=== PATIENT | male | born 1965 | race Caucasian/White ===

== ENCOUNTER → 2016-06-19 | Outpatient (CLI) | payer BC ==
[2016-06-19 16:38] LABS: Anion Gap 10 mmol/L; Blood Urea Nitrogen 10 mg/dL (9-20); Calcium 8.5 mg/dL (8.4-10.2); Carbon Dioxide 29 mmol/L (22-30); Chloride 107 mmol/L (98-107); Glucose 81 mg/dL (74-99); Magnesium 1.9 mg/dL (1.6-2.3); Non-African American GFR(MDRD) >60 (>60 ml/min/1.73 sqM); Potassium 3.9 mmol/L (3.5-5.1); Sodium 146 mmol/L (137-145)
== END | disposition home or self-care (01) ==
LOC: LABWHC1 16:06
PROVIDERS: ATTEND Internal Medicine Clinical Cardiac Electrophysiology
DX: I10 Essential (primary) hypertension (principal); I48.91 Unspecified atrial fibrillation; Z79.899 Other long term (current) drug therapy
CPT/HCPCS: 36415; 80048; 83735

== ENCOUNTER → 2017-02-13 | Outpatient (CLI) | payer BC ==
[2017-02-13 10:27] LABS: Anion Gap 8 mmol/L; Blood Urea Nitrogen 22 mg/dL (9-20); Calcium 8.7 mg/dL (8.4-10.2); Carbon Dioxide 28 mmol/L (22-30); Chloride 108 mmol/L (98-107); Glucose 95 mg/dL (74-99); Magnesium 1.9 mg/dL (1.6-2.3); Non-African American GFR(MDRD) >60 (>60 ml/min/1.73 sqM); Potassium 4.6 mmol/L (3.5-5.1); Sodium 144 mmol/L (137-145)
== END | disposition home or self-care (01) ==
LOC: LABWHC1 08:49
PROVIDERS: ATTEND Internal Medicine Clinical Cardiac Electrophysiology
DX: I48.91 Unspecified atrial fibrillation (principal)
CPT/HCPCS: 36415; 80048; 83735

== ENCOUNTER → 2018-07-30 | Outpatient (CLI) | payer BC ==
[2018-07-30 11:42] LABS: HGB 13.9 gm/dL (13.0-17.5); MCH 29.1 pg (25.0-35.0); MCHC 32.3 g/dL (31.0-37.0); MCV 89.9 fL (80.0-100.0); Mean Platelet Volume 6.4; Platelet Count 260 k/uL (150-450); RBC 4.78 m/uL (4.30-5.90); RDW 13.5 % (11.5-15.5); WBC 6.5 k/uL (3.8-10.6)
[2018-07-30 11:57] LABS: Anion Gap 6 mmol/L; Blood Urea Nitrogen 16 mg/dL (9-20); Carbon Dioxide 29 mmol/L (22-30); Chloride 106 mmol/L (98-107); Glucose 88 mg/dL (74-99); Potassium 4.5 mmol/L (3.5-5.1); Sodium 141 mmol/L (137-145)
== END | disposition home or self-care (01) ==
LOC: LABPAT 11:10
PROVIDERS: ATTEND Internal Medicine Clinical Cardiac Electrophysiology
DX: Z01.812 Encounter for preprocedural laboratory examination (principal); I48.1 Persistent atrial fibrillation
CPT/HCPCS: 36415; 80051; 82565; 82947; 84520; 85027

== ENCOUNTER 2018-08-15 07:04 | Day surgery (SDC) | payer BC ==
[~2018-08-15 07:04] MED LIST: SODIUM CHLORIDE 0.9% 1,000 ML IV SCH
[2018-08-15 07:47] LABS: INR 1.5 (<1.2); Prothrombin Time 14.7 sec (9.0-12.0)
[2018-08-15] MEDS ORDERED: LIDOCAINE 1% INJ 10MG/ML (20 ML MDV) ONE ×2 (07:54→08:21)
[2018-08-15] MEDS ORDERED: HEPARIN SODIUM 1,000 UN/ML (10ML VL) ONE (07:54)
[2018-08-15] MEDS ORDERED: AMIODARONE 50 MG/ML 3 ML VIAL IV ONE (08:12)
[2018-08-15] MEDS ORDERED: DEXTROSE 5% IN WATER 100 ML BAG IV ONE (08:12)
[2018-08-15] MEDS ORDERED: MIDAZOLAM 2 MG/2 ML VIAL ONE (08:21)
[2018-08-15] MEDS ORDERED: GLYCOPYRROLATE 0.2 MG/ML 2 ML VIAL ONE (08:21)
[2018-08-15] MEDS ORDERED: NEOSTIGMINE 1 MG/ML 10 ML VIAL ONE (08:21)
[2018-08-15] MEDS ORDERED: AMIODARONE 200 MG TAB ONE (08:21)
[2018-08-15] MEDS ORDERED: PHENYLEPHRINE-0.9% NACL SYG 1 MG/10 ML SYRINGE ONE (08:21)
[2018-08-15] MEDS ORDERED: ROCURONIUM BROMIDE 10 MG/ML 10 ML VIAL IV ONE (08:21)
[2018-08-15] MEDS ORDERED: ONDANSETRON 4 MG/2 ML VIAL ONE (08:21)
[2018-08-15] MEDS ORDERED: fentaNYL (PF) 50 MCG/ML 2 ML AMP ONE (08:21)
[2018-08-15] MEDS ORDERED: SUCCINYLCHOLINE CHLORIDE 100 MG/5 ML SYR IV ONE (08:21)
[2018-08-15] MEDS ORDERED: PROTAMINE SULFATE 10 MG/ML 5 ML VIAL IV ONE (08:21)
[2018-08-15] MEDS ORDERED: HEPARIN SODIUM,PORCINE 10,000 UNIT/ML 1 ML VIAL ONE (08:21)
[2018-08-15] MEDS ORDERED: PROPOFOL 10 MG/ML 20 ML VIAL IV ONE (08:21)
[2018-08-15] MEDS ORDERED: HEPARIN SODIUM (1,000 UNIT/ML) 1,000 UNIT in SODIUM CHLORIDE 0.9% 1,000 ML IRRIGATION ONE ×2 (08:36→13:01)
[2018-08-15] MEDS ORDERED: HEPARIN SOD,PORK IN 0.45% NACL 25,000 UNIT in 0.45% NACL 1 250ML.BAG IV ONE (08:52)
[2018-08-15] MEDS ORDERED: LIDOCAINE 1% INJ 10MG/ML (20 ML MDV) SQ ONE (09:05)
[2018-08-15] MEDS ORDERED: SODIUM CHLORIDE 0.9% 1,000 ML IV ONE (10:35)
[2018-08-15] MEDS ORDERED: ACETAMINOPHEN IV (For NPO) 1,000 MG in EMPTY BAG 1 BAG IVPB ONE (14:57)
[2018-08-15] MEDS ORDERED: HYDROcodone/APAP 5-325MG 1 EACH TAB PO PRN (14:57)
[2018-08-15] MEDS ORDERED: ACETAMINOPHEN TAB 325 MG TAB PO PRN (14:57)
[2018-08-15] MEDS: AMIODARONE 200 MG TAB PO SCH ×2 (17:26→21:42)
[2018-08-15 17:36] VITALS: BMI 37.5
--- NOTE | 2018-08-15 20:05 | P.PCN ---
Preoperative Diagnosis: A. fib ablation performed with a wide [place] antral isolation of the pulmonary veins, linear ablation along the roof mitral annulus and along the anterior wall of the left atrium in areas of fractionation, ablation of fractionated electrograms in the posterior wall of the LAD as well as the septal wall upper septal wall on the right atrium next This is a very long procedure on account of the following #1 the right atrium was very dilated and transseptal catheterization was difficult on account of the size of the right atrium #2 left atrium was very dilated and contacted the guzman was difficult and we had to switch to deflectable sheath chief contact. Despite that this was a long procedure involving extensive ablation in the left atrium
[2018-08-15] MEDS: APIXABAN 5 MG TAB PO SCH (21:42)
--- NOTE | 2018-08-16 07:11 | CE ---
CARDIAC ELECTROPHYSIOLOGY REPORT Mr. Mandujano is a 53-year-old male patient with hypertrophic cardiomyopathy with symptomatic atrial fibrillation. He has had atrial fibrillation about 5 years back. He was brought in for an atrial fibrillation ablation and pulmonary vein isolation with linear ablation. Patient is brought to the EP lab in a fasting state. Written informed consent was obtained prior to the procedure. The right and left groins were prepped and draped as per protocol. Venous sheaths were placed in the right and left femoral veins and a 5- [place] arterial sheath was placed in the right femoral artery. Hemodynamic monitoring was performed. The patient remained stable throughout the procedure. Blood sampling was performed. ACT maintained above 300. Coronary sinus catheter was placed. The patient was in atrial fibrillation. At the start of the study, an intracardiac echo catheter was placed. A 3-D mapping of the left atrium was performed. The patient's INR was subtherapeutic today despite being therapeutic over the last several weeks. Therefore, the left and right atrial appendages were interrogated prior to starting and no clot was noted. The right and left transseptal catheterization was performed. RA pressure was 27/8 mmHg. LV pressure 23 x 10 x 17 mmHg. The Transseptal catheterization was difficult. He had a thick interatrial septum as well as a very rotated heart. The interatrial septum was low. The standard needle could not reach the fossa ovalis. Therefore Brock[place]rough needle #1 was used and we were able to cross the fossa ovalis and accessed the left atrium. Thereafter, a PentaRay catheter was placed and 3D electroanatomic Carto mapping was performed. The left-sided veins seemed isolated. However, the right-sided veins seem to have recovered, pulmonary vein potentials especially anteriorly. The atrium was very large and this was one of the reasons for the length of the procedure. This was a very large right and left atrium. First, antral isolation of the right-sided veins was performed. A very large encircling an antral isolation was performed incorporating a large portion of the atrium along with this. A catheter had to be used later to achieve contact posteriorly outside the right inferior pulmonary vein to achieve complete isolation. This was a very wide [place] antral isolation. The left-sided veins seemed isolated. However, a wide [place] antral isolation was performed around the left inferior pulmonary vein and as the anterior aspect of this vein has been ablated organization of the tachycardia was noted, but termination never occurred. Both the left superior And inferior veins were completely isolated. Next, the roof line was made a little anteriorly to avoid the esophagus. Esophageal deflection had to be performed when the posterior wall was being ablated. Once the roof line was completed, there was slight organization of the atrial fibrillation. Following that, AV node ablation of the mitral isthmus was performed and this resulted in significant amount of organization temporarily. Once again after completion of the line, the patient remained in atrial fibrillation but at a more intracardiac electrograms in the coronary sinus appeared more organized. Mapping around the anterior wall was performed and complex fractionated electrograms in the body of the left atrium anteriorly were ablated, especially around the fossa ovalis and the transseptal site anteroseptally posteriorly in the LA wall the midportion of the left atrium was assured fractionation and RF ablation was performed. Despite a very wide [place] antral isolation, linear ablation along the LA roof, complete mitral isthmus line and ablation of complex fractionated electrograms on the posterior wall and the anterior wall. We achieved organization of atrial fibrillation, greater augmentation of atrial fibrillation, but the patient still remained in A fib. The catheter was then removed from the left atrium and the right atrium was mapped. The right atrium was quite large, rapid cycle length electrograms were noted just below the SVC separately and the RF ablation was performed here. However, when the right atrium was mapped a lot of fractionation was noted with rapid cycle length in electrograms diffusely and therefore no further ablation was performed. The patient underwent electrical cardioversion. The sinus cycle length was 1200 milliseconds, the MA interval 193 milliseconds, QRS 110 milliseconds, QT 470 milliseconds. Sinus node recovery times were paced cycle length of 400 milliseconds, 1514 milliseconds from the high right atrium. AV node Wenckebach block was 320 milliseconds from pacing from the coronary sinus. The AH interval was 87 milliseconds, HV interval was 46 milliseconds. The patient tolerated the procedure well without any acute complications. Heparin was reversed at the end of the procedure. All catheters removed. The patient was extubated and the endoscope from the esophagus was removed prior to electrical cardioversion. RESULT: 1. Wide [place] antral isolation of the pulmonary veins. 2. Linear ablation along the left atrial roof. 3. Linear ablation of the mitral isthmus. 4. Focal ablation along areas of complex fractionation on the anterior wall and the posterior wall of the left atrium as well as on the septal aspect of the SVC and the upper septum in the right atrium. PLAN: Amiodarone for 1 month then stop. Beta blockers to continue. Anticoagulation with Eliquis. JARETT / IJN: [id number] /
[2018-08-16] MEDS: AMIODARONE 200 MG TAB PO SCH ×2 (08:18→17:21)
[2018-08-16] MEDS: APIXABAN 5 MG TAB PO SCH (08:18)
[2018-08-16 08:19] VITALS: RESP 18
[2018-08-16] MEDS ORDERED: SPIRONOLACTONE 25 MG TAB PO SCH (09:00)
[2018-08-16] MEDS ORDERED: amLODIPine 5 MG TAB PO SCH (09:00)
[2018-08-16] MEDS ORDERED: LISINOPRIL 20 MG TAB PO SCH (09:00)
[2018-08-16] MEDS ORDERED: METOPROLOL SUCCINATE (ER) 100 MG TAB.ER.24H PO SCH (09:00)
[2018-08-16] MEDS ORDERED: ASPIRIN 81 MG PO SCH (09:00)
[2018-08-16] MEDS ORDERED: ATORVASTATIN 80 MG TAB PO SCH (09:00)
[2018-08-16 12:08] VITALS: BP 105/63; PULSE 58; TEMP 98.7
--- NOTE | 2018-08-16 12:16 | P.DS ---
Providers Attending physician: Marco Belle Primary care physician: Stated None Hospital Course: Patient is doing well. He denies any chest discomfort dizziness lightheadedness or palpitations no cough phlegm. His throat feels fine He underwent a Maze procedure yesterday, catheter-based with PVI, linear ablation on the roof and the mitral annulus and ablation of fractionated electrograms in the anterior and posterior LA as well as high interatrial septum on the right side RA Although his atrial fibrillation organized a bit there was no termination despite a fairly extensive ablation and very large [place] antral isolation was especially in the right side I have switched him to ELIQUIS to maintain appropriate and adequate anticoagulation postprocedure and hopefully he can get ELIQUIS instead of warfarin Vitals are stable blood pressure 113/73 mmHg pulse rate in the 60s, temperature 98.7F Breath sounds are clear no rhonchi no crackles Heart sounds S1 and S2 are normal no murmurs or gallops no rub [place] soft nontender Groins of healed well sutures were removed no edema Impression Persistent atrial fibrillation Nonobstructive HCM Significant biatrial enlargement with elevated LA and RA pressures, RA greater than LA Plan Stop warfarin start ELIQUIS 5 g twice daily and follow with Dr. Kang in 1-2 weeks and follow-up with me again in about 2-3 months Resume metoprolol Short-term amiodarone 400 mg a day for one month and then stop No long-term amiodarone If he has recurrence of atrial fibrillation the future then either rate control atrial fibrillation with beta blockers or perhaps device therapy for A. fib with RVR or A. fib with bradycardia may be considered Patient Condition at Discharge: Stable Plan - Discharge Summary Discharge Rx Participant: Yes New Discharge Prescriptions: New Apixaban [Eliquis] 5 mg PO BID #60 tab Amiodarone [Cordarone] 400 mg PO DAILY #30 tablet Continue Warfarin [Coumadin] 10 mg PO MOTUWETHFRSA Lisinopril 40 mg PO DAILY Atorvastatin [Lipitor] 80 mg PO DAILY Aspirin 81 mg PO DAILY amLODIPine BESYLATE 5 mg PO DAILY Spironolactone 50 mg PO DAILY Metoprolol Succinate 200 mg PO DAILY Discontinued Warfarin Sodium 15 mg PO MCCARTY Discharge Medication List Aspirin 81 mg PO DAILY 04/11/14 [History] Atorvastatin [Lipitor] 80 mg PO DAILY 04/11/14 [History] Lisinopril 40 mg PO DAILY 04/11/14 [History] Warfarin [Coumadin] 10 mg PO MOTUWETHFRSA 04/11/14 [History] Metoprolol Succinate 200 mg PO DAILY 08/09/18 [History] Spironolactone 50 mg PO DAILY 08/09/18 [History] amLODIPine BESYLATE 5 mg PO DAILY 08/09/18 [History] Amiodarone [Cordarone] 400 mg PO DAILY #30 tablet 08/15/18 [Rx] Apixaban [Eliquis] 5 mg PO BID #60 tab 08/15/18 [Rx] Follow up Appointment(s)/Referral(s): Marco Belle MD [STAFF PHYSICIAN] - (4 month follow up ) Pola Kang MD [STAFF PHYSICIAN] - 1 Week (groin check) Activity/Diet/Wound Care/Special Instructions: Prior authorization started with insurance for Pradaxa, they will be sending a form Dr Belle's office for completion.
== END 2018-08-16 17:50 | disposition home or self-care (01) ==
LOC: CATHEP 07:04 → 1SOBS 14:53 → CATHEP 08-16 17:50
PROVIDERS: ATTEND Internal Medicine Clinical Cardiac Electrophysiology
DX: I48.1 Persistent atrial fibrillation (principal); I11.9 Hypertensive heart disease without heart failure; I34.1 Nonrheumatic mitral (valve) prolapse; I42.1 Obstructive hypertrophic cardiomyopathy; E78.5 Hyperlipidemia, unspecified; Z87.891 Personal history of nicotine dependence; Z79.01 Long term (current) use of anticoagulants; Z79.82 Long term (current) use of aspirin; Z79.899 Other long term (current) drug therapy
CPT/HCPCS: 85347; 92960; 93662; 93613; 93656; 93657; 85610; C1769 ×3; C1894 ×2; C1730; C1731; C1893 ×2; C1732; J2001; J1644 ×2

== ENCOUNTER → 2019-11-24 | Outpatient (CLI) | payer BC ==
[2019-11-24 15:41] LABS: INR 4.19 (0.90-1.11); Prothrombin Time 42.4 sec (9.9-11.9)
== END | disposition home or self-care (01) ==
LOC: LABWHC1 10:10
PROVIDERS: ATTEND Nurse Practitioner Adult Health
DX: I48.91 Unspecified atrial fibrillation (principal)
CPT/HCPCS: 36415; 85610

== ENCOUNTER 2020-02-10 21:36 | Inpatient (IN) | payer BC ==
[2020-02-10 22:20] LABS: Anisocytosis Slight; Basophils # (A) 0.1 k/uL (0-0.2); Basophils % (A) 1 %; Eosinophils # (A) 0.3 k/uL (0-0.7); Eosinophils % (A) 3 %; HCT 21.7 % (39.0-53.0); Hypochromasia Marked; Lymphocytes # (A) 1.5 k/uL (1.0-4.8); Lymphocytes % (A) 16 %; MCH 16.3 pg (25.0-35.0); MCHC 26.2 g/dL (31.0-37.0); MCV 62.1 fL (80.0-100.0); Mean Platelet Volume 6.3; Microcytosis Marked; Monocytes # (A) 0.9 k/uL (0-1.0); Monocytes % (A) 9 %; Neutrophils # (A) 6.5 k/uL (1.3-7.7); Neutrophils % (A) 68 %; Platelet Count 594 k/uL (150-450); Poikilocytosis Slight; RBC 3.49 m/uL (4.30-5.90); RDW 19.3 % (11.5-15.5); WBC 9.5 k/uL (3.8-10.6)
[2020-02-10 22:25] LABS: Albumin 3.7 g/dL (3.5-5.0); Calcium 8.6 mg/dL (8.4-10.2); INR 1.2 (<1.2); Partial Thromboplastin Time 23.4 sec (22.0-30.0); Potassium 5.1 mmol/L (3.5-5.1); Prothrombin Time 12.1 sec (9.0-12.0); Total Bilirubin 0.4 mg/dL (0.2-1.3); Total Protein 6.8 g/dL (6.3-8.2)
[2020-02-10 22:33] LABS: HGB 5.7 gm/dL (13.0-17.5)
[2020-02-10] MEDS ORDERED: PANTOPRAZOLE 40 MG/10 ML VIAL IVP ONE (23:23)
--- NOTE | 2020-02-10 23:25 | ED ---
General Adult HPI - General Chief complaint: Recheck/Abnormal Lab/Rx Stated complaint: Low Hemoglobin Time Seen by Provider: 02/10/20 21:49 Source: patient, RN notes reviewed, old records reviewed Mode of arrival: ambulatory Limitations: no limitations - History of Present Illness Initial comments: 55-year-old male patient proceeded for evaluation of low hemoglobin. Patient reports that for the last 3 weeks or so he feels like he has been weak. Feels tired after minimal exertion. Patient denies any chest pain. Patient reports that about 8 months his stools have been differently, dark and melanotic. Denies any abdominal pain. Patient recently had a cardiac workup that was reportedly negative. Patient outpatient labs done by primary care provider which displayed low hemoglobin. Patient does take warfarin for atrial fibrillation. Denies any other complaints. Systemic: Pt denies fatigue, fever/chills, rash. Pt denies weakness, night sweats, weight loss. Neuro: Pt denies headache, visual disturbances, syncope or pre-syncope. HEENT: Pt denies ocular discharge or irritation, otalgia, rhinorrhea, pharyngitis or notable lymphadenopathy. Cardiopulmonary: Pt denies chest pain, heart palpitations, dyspnea on exertion. Abdominal/GI: Pt denies abdominal pain, n/v/d. : Pt denies dysuria, burning w/ urination, frequency/urgency. Denies new onset urinary or bowel incontinence. MSK: Pt denies myalgia, loss of strength or function in extremities. Neuro: Pt denies new onset weakness, paresthesias. - Related Data Home Medications Medication Instructions Recorded Confirmed Aspirin 81 mg PO DAILY 04/11/14 02/10/20 Atorvastatin [Lipitor] 80 mg PO DAILY 04/11/14 02/10/20 Warfarin [Coumadin] 10 mg PO SUTUWETHSA 04/11/14 02/10/20 lisinopriL 40 mg PO DAILY 04/11/14 02/10/20 Metoprolol Succinate 200 mg PO DAILY 08/09/18 02/10/20 Spironolactone 50 mg PO DAILY 08/09/18 02/10/20 amLODIPine BESYLATE 5 mg PO DAILY 08/09/18 02/10/20 Warfarin [Coumadin] 5 mg PO MOFR 02/10/20 02/10/20 Allergies Allergy/AdvReac Type Severity Reaction Status Date / Time No Known Allergies Allergy Verified 02/10/20 22:28 Review of Systems ROS Statement: Those systems with pertinent positive or pertinent negative responses have been documented in the HPI. ROS Other: All systems not noted in ROS Statement are negative. Past Medical History Past Medical History: Atrial Fibrillation, Hypertension Additional Past Medical History / Comment(s): SEE DR CROSS H&P History of Any Multi-Drug Resistant Organisms: None Reported Past Surgical History: Cardiac Ablation, Tonsillectomy Additional Past Surgical History / Comment(s): CARDIOVERSION Past Anesthesia/Blood Transfusion Reactions: No Reported Reaction Past Psychological History: No Psychological Hx Reported Smoking Status: Former smoker Past Alcohol Use History: Occasional Past Drug Use History: None Reported General Exam - General Exam Comments Initial Comments: Constitutional: NAD, AOX3, Pt has pleasant affect. HEENT: NC/AT, trachea midline, neck supple, no lymphadenopathy. Posterior pharynx non erythematous, without exudates. External ears appear normal, without discharge. Mucous membranes moist. Eyes PERRLA, EOM intact. There is no scleral icterus. No pallor noted. Cardiopulmonary: RRR, no murmurs, rubs or gallops, no JVD noted. Lungs CTAB in anterior and posterior marie. No peripheral edema. Abdominal exam: Abdomen soft and non-distended. Abdomen non-tender to palpation in all 4 quadrants. Bowel sounds active in LLQ. No hepatosplenomegaly. No ecchymosis Neuro: CN II-XII grossly intact. No nuchal rigidity. MSK: Full active ROM in upper and lower extremities, 5/5 stregnth. Limitations: no limitations Course Vital Signs 02/10/20 02/10/20 02/10/20 21:42 22:34 23:27 Temperature 98.6 F Pulse Rate 71 67 66 Pulse Rate [ Pulse Oximetery ] Respiratory 16 16 18 Rate Blood Pressure 116/65 117/66 121/66 Blood Pressure [Right Arm] O2 Sat by Pulse 100 98 98 Oximetry 02/11/20 02/11/20 02/11/20 00:34 00:53 01:03 Temperature 98.8 F 98.5 F Pulse Rate 69 68 67 Pulse Rate [ 68 Pulse Oximetery ] Respiratory 18 18 18 Rate Blood Pressure 125/67 124/63 121/66 Blood Pressure 121/61 [Right Arm] O2 Sat by Pulse 100 99 99 Oximetry Medical Decision Making - Medical Decision Making 55-year-old male patient proceeded for evaluation. Patient has been feeling weak the last few weeks. Was found to have low hemoglobin by outpatient labs. Patient does report change in stools for 6-8 months. Labs here did confirm hemoglobin 5.7. Patient was transfused. She is on heparin his INR is 1.2. This will be held. Patient be admitted for further evaluation. Case discussed with Dr. Black. - Lab Data Result diagrams: 02/10/20 22:04 02/10/20 22:04 Lab Results 02/10/20 02/10/20 02/10/20 Range/Units 22:04 22:04 22:04 WBC 9.5 (3.8-10.6) k/uL RBC 3.49 L (4.30-5.90) m/uL Hgb 5.7 L* (13.0-17.5) gm/dL Hct 21.7 L (39.0-53.0) % MCV 62.1 L (80.0-100.0) fL MCH 16.3 L (25.0-35.0) pg MCHC 26.2 L (31.0-37.0) g/dL RDW 19.3 H (11.5-15.5) % Plt Count 594 H (150-450) k/uL Neutrophils % 68 % Lymphocytes % 16 % Monocytes % 9 % Eosinophils % 3 % Basophils % 1 % Neutrophils # 6.5 (1.3-7.7) k/uL Lymphocytes # 1.5 (1.0-4.8) k/uL Monocytes # 0.9 (0-1.0) k/uL Eosinophils # 0.3 (0-0.7) k/uL Basophils # 0.1 (0-0.2) k/uL Hypochromasia Marked Poikilocytosis Slight Anisocytosis Slight Microcytosis Marked PT 12.1 H (9.0-12.0) sec INR 1.2 H (<1.2) APTT 23.4 (22.0-30.0) sec Sodium (137-145) mmol/L Potassium (3.5-5.1) mmol/L Chloride (98-107) mmol/L Carbon Dioxide (22-30) mmol/L Anion Gap mmol/L BUN (9-20) mg/dL Creatinine (0.66-1.25) mg/dL Est GFR (CKD-EPI)AfAm (>60 ml/min/1.73 sqM) Est GFR (CKD-EPI)NonAf (>60 ml/min/1.73 sqM) Glucose (74-99) mg/dL Plasma Lactic Acid Saurav (0.7-2.0) mmol/L Calcium (8.4-10.2) mg/dL Total Bilirubin (0.2-1.3) mg/dL AST (17-59) U/L ALT (4-49) U/L Alkaline Phosphatase (38-126) U/L Total Protein (6.3-8.2) g/dL Albumin (3.5-5.0) g/dL Stool Occult Blood Positive (Negative) Blood Type Blood Type Confirm Blood Type Recheck Bld Type Recheck Status Antibody Screen Crossmatch Spec Expiration Date 02/10/20 02/10/20 02/10/20 Range/Units 22:04 22:04 23:10 WBC (3.8-10.6) k/uL RBC (4.30-5.90) m/uL Hgb (13.0-17.5) gm/dL Hct (39.0-53.0) % MCV (80.0-100.0) fL MCH (25.0-35.0) pg MCHC (31.0-37.0) g/dL RDW (11.5-15.5) % Plt Count (150-450) k/uL Neutrophils % % Lymphocytes % % Monocytes % % Eosinophils % % Basophils % % Neutrophils # (1.3-7.7) k/uL Lymphocytes # (1.0-4.8) k/uL Monocytes # (0-1.0) k/uL Eosinophils # (0-0.7) k/uL Basophils # (0-0.2) k/uL Hypochromasia Poikilocytosis Anisocytosis Microcytosis PT (9.0-12.0) sec INR (<1.2) APTT (22.0-30.0) sec Sodium 138 (137-145) mmol/L Potassium 5.1 (3.5-5.1) mmol/L Chloride 104 (98-107) mmol/L Carbon Dioxide 27 (22-30) mmol/L Anion Gap 7 mmol/L BUN 27 H (9-20) mg/dL Creatinine 1.31 H (0.66-1.25) mg/dL Est GFR (CKD-EPI)AfAm 72 (>60 ml/min/1.73 sqM) Est GFR (CKD-EPI)NonAf 62 (>60 ml/min/1.73 sqM) Glucose 133 H (74-99) mg/dL Plasma Lactic Acid Saurav 1.9 (0.7-2.0) mmol/L Calcium 8.6 (8.4-10.2) mg/dL Total Bilirubin 0.4 (0.2-1.3) mg/dL AST 51 (17-59) U/L ALT 28 (4-49) U/L Alkaline Phosphatase 120 (38-126) U/L Total Protein 6.8 (6.3-8.2) g/dL Albumin 3.7 (3.5-5.0) g/dL Stool Occult Blood (Negative) Blood Type A Positive Blood Type Confirm Blood Type Recheck No Previous Record Bld Type Recheck Status CABO Indicated Antibody Screen NEGATIVE Crossmatch See Detail Spec Expiration Date 02/13/2020 - 230902/10/20 Range/Units 23:12 WBC (3.8-10.6) k/uL RBC (4.30-5.90) m/uL Hgb (13.0-17.5) gm/dL Hct (39.0-53.0) % MCV (80.0-100.0) fL MCH (25.0-35.0) pg MCHC (31.0-37.0) g/dL RDW (11.5-15.5) % Plt Count (150-450) k/uL Neutrophils % % Lymphocytes % % Monocytes % % Eosinophils % % Basophils % % Neutrophils # (1.3-7.7) k/uL Lymphocytes # (1.0-4.8) k/uL Monocytes # (0-1.0) k/uL Eosinophils # (0-0.7) k/uL Basophils # (0-0.2) k/uL Hypochromasia Poikilocytosis Anisocytosis Microcytosis PT (9.0-12.0) sec INR (<1.2) APTT (22.0-30.0) sec Sodium (137-145) mmol/L Potassium (3.5-5.1) mmol/L Chloride (98-107) mmol/L Carbon Dioxide (22-30) mmol/L Anion Gap mmol/L BUN (9-20) mg/dL Creatinine (0.66-1.25) mg/dL Est GFR (CKD-EPI)AfAm (>60 ml/min/1.73 sqM) Est GFR (CKD-EPI)NonAf (>60 ml/min/1.73 sqM) Glucose (74-99) mg/dL Plasma Lactic Acid Saurav (0.7-2.0) mmol/L Calcium (8.4-10.2) mg/dL Total Bilirubin (0.2-1.3) mg/dL AST (17-59) U/L ALT (4-49) U/L Alkaline Phosphatase (38-126) U/L Total Protein (6.3-8.2) g/dL Albumin (3.5-5.0) g/dL Stool Occult Blood (Negative) Blood Type Blood Type Confirm A Positive Blood Type Recheck Bld Type Recheck Status Antibody Screen Crossmatch Spec Expiration Date Disposition Clinical Impression: GI bleed Disposition: ADMITTED IP TO THIS [facility] Condition: Serious Is patient prescribed a controlled substance at d/c from ED?: No
[2020-02-10] MEDS ORDERED: NALOXONE 0.4 MG/ML 1 ML VIAL IV PRN (23:50)
[2020-02-11] MEDS ORDERED: SODIUM CHLORIDE 0.9% 500 ML 500 ML IV ONE ×2 (00:30)
[2020-02-11] MEDS ORDERED: ONDANSETRON 4 MG/2 ML VIAL IVP PRN (00:52)
[2020-02-11 07:50] LABS: Anisocytosis Moderate; Basophils # (A) 0.1 k/uL (0-0.2); Basophils % (A) 1 %; Eosinophils # (A) 0.3 k/uL (0-0.7); Eosinophils % (A) 4 %; Hypochromasia Marked; Lymphocytes # (A) 1.6 k/uL (1.0-4.8); Lymphocytes % (A) 19 %; MCH 17.7 pg (25.0-35.0); MCHC 27.1 g/dL (31.0-37.0); MCV 65.4 fL (80.0-100.0); Mean Platelet Volume 6.3; Microcytosis Marked; Monocytes # (A) 0.8 k/uL (0-1.0); Monocytes % (A) 10 %; Neutrophils # (A) 5.5 k/uL (1.3-7.7); Neutrophils % (A) 65 %; Platelet Count 499 k/uL (150-450); Poikilocytosis Moderate; RBC 3.36 m/uL (4.30-5.90); WBC 8.4 k/uL (3.8-10.6)
[2020-02-11] MEDS: PANTOPRAZOLE 40 MG/10 ML VIAL IVP SCH ×2 (09:04→21:09)
[2020-02-11] MEDS: SODIUM CHLORIDE 0.9% 1,000 ML IV SCH (09:04)
--- NOTE | 2020-02-11 09:41 | P.HPIM ---
History of Present Illness 55-year-old [facility] Upon questioning patient does feel tired of After minimal exertion. Patient had was having on and off blood in the stools for about Lasix mesomorph. Patient denied any abdominal pain. Patient denied any nausea vomiting. Patient is found to have hemoglobin of 5.7 patient received a 1 unit of PRBC transfusion patient will be transfused 1 more unit patient to [place] last bloody bowel movement was about couple days ago which was some blood on the tissue paper. Patient does use Coumadin patient does have history of atrial fibrillation at one point of time patient was switched Eliquis but his insurance didn't approve because because of which patient is on Coumadin. Patient has a normal ejection fraction no history of heart failure does have history of atrial fibrillation. But his INR is only 1.2 Review of Systems REVIEW OF SYSTEMS: CONSTITUTIONAL: No fever, no malaise, no fatigue. HEENT: No recent visual problems or hearing problems. Denied any sore throat. CARDIOVASCULAR: No chest pain, orthopnea, PND, no palpitations, no syncope. PULMONARY: No shortness of breath, no cough, no hemoptysis. GASTROINTESTINAL: No diarrhea, no nausea, no vomiting, no abdominal pain. NEUROLOGICAL: No headaches, no weakness, no numbness. HEMATOLOGICAL: Denies any bleeding or petechiae. GENITOURINARY: Denies any burning micturition, frequency, or urgency. MUSCULOSKELETAL/RHEUMATOLOGICAL: Denies any joint pain, swelling, or any muscle pain. ENDOCRINE: Denies any polyuria or polydipsia. The rest of the 14-point review of systems is negative. Past Medical History Past Medical History: Atrial Fibrillation, Hypertension Additional Past Medical History / Comment(s): SEE DR CROSS H&P History of Any Multi-Drug Resistant Organisms: None Reported Past Surgical History: Cardiac Ablation, Tonsillectomy Additional Past Surgical History / Comment(s): CARDIOVERSION Past Anesthesia/Blood Transfusion Reactions: No Reported Reaction Past Psychological History: No Psychological Hx Reported Smoking Status: Former smoker Past Alcohol Use History: Occasional Past Drug Use History: None Reported Medications and Allergies Home Medications Medication Instructions Recorded Confirmed Type Aspirin 81 mg PO DAILY 04/11/14 02/10/20 History Atorvastatin [Lipitor] 80 mg PO DAILY 04/11/14 02/10/20 History Warfarin [Coumadin] 10 mg PO SUTUWETHSA 04/11/14 02/10/20 History lisinopriL 40 mg PO DAILY 04/11/14 02/10/20 History Metoprolol Succinate 200 mg PO DAILY 08/09/18 02/10/20 History Spironolactone 50 mg PO DAILY 08/09/18 02/10/20 History amLODIPine BESYLATE 5 mg PO DAILY 08/09/18 02/10/20 History Warfarin [Coumadin] 5 mg PO MOFR 02/10/20 02/10/20 History Allergies Allergy/AdvReac Type Severity Reaction Status Date / Time No Known Allergies Allergy Verified 02/10/20 22:28 Physical Exam Vitals: Vital Signs Temp Pulse Pulse Resp BP BP Pulse Ox 02/11/20 07:58 98.6 F 69 18 116/67 96 02/11/20 03:58 98.5 F 64 17 111/47 95 02/11/20 03:47 98.5 F 65 17 111/47 96 02/11/20 01:33 98.5 F 68 18 121/61 98 02/11/20 01:03 98.5 F 67 68 18 121/66 121/61 99 02/11/20 00:53 98.8 F 68 18 124/63 99 02/11/20 00:34 69 18 125/67 100 02/10/20 23:27 66 18 121/66 98 02/10/20 22:34 67 16 117/66 98 02/10/20 21:42 98.6 F 71 16 116/65 100 Intake and Output 02/10/20 02/11/20 02/11/20 22:59 06:59 14:59 Intake Total 510 Balance 510 Intake: Oral 200 Blood Product 310 Rc As-1 Unit 310 [id number] Other: Weight 104.417 kg 103.7 kg PHYSICAL EXAMINATION: GENERAL: The patient is alert and oriented x3, not in any acute distress. Well developed, well nourished. HEENT: Pupils are round and equally reacting to light. EOMI. No scleral icterus. does have conjunctival pallor. Normocephalic, atraumatic. No pharyngeal erythema. No thyromegaly. CARDIOVASCULAR: S1 and S2 present. No murmurs, rubs, or gallops. PULMONARY: Chest is clear to auscultation, no wheezing or crackles. ABDOMEN: Soft, nontender, nondistended, normoactive bowel sounds. No palpable organomegaly. MUSCULOSKELETAL: No joint swelling or deformity. EXTREMITIES: No cyanosis, clubbing, or pedal edema. NEUROLOGICAL: Gross neurological examination did not reveal any focal deficits. SKIN: No rashes. Results CBC & Chem 7: 02/11/20 07:13 02/10/20 22:04 Labs: Abnormal Lab Results - Last 24 Hours (Table) 02/10/20 02/10/20 02/10/20 Range/Units 22:04 22:04 22:04 RBC 3.49 L (4.30-5.90) m/uL Hgb 5.7 L* (13.0-17.5) gm/dL Hct 21.7 L (39.0-53.0) % MCV 62.1 L (80.0-100.0) fL MCH 16.3 L (25.0-35.0) pg MCHC 26.2 L (31.0-37.0) g/dL RDW 19.3 H (11.5-15.5) % Plt Count 594 H (150-450) k/uL PT 12.1 H (9.0-12.0) sec INR 1.2 H (<1.2) BUN 27 H (9-20) mg/dL Creatinine 1.31 H (0.66-1.25) mg/dL Glucose 133 H (74-99) mg/dL Crossmatch 02/10/20 02/11/20 Range/Units 23:10 07:13 RBC 3.36 L (4.30-5.90) m/uL Hgb 6.0 L* (13.0-17.5) gm/dL Hct 22.0 L (39.0-53.0) % MCV 65.4 L (80.0-100.0) fL MCH 17.7 L (25.0-35.0) pg MCHC 27.1 L (31.0-37.0) g/dL RDW 22.0 H (11.5-15.5) % Plt Count 499 H (150-450) k/uL PT (9.0-12.0) sec INR (<1.2) BUN (9-20) mg/dL Creatinine (0.66-1.25) mg/dL Glucose (74-99) mg/dL Crossmatch See Detail Thrombosis Risk Factor Assmnt - Choose All That Apply Each Factor Represents 1 point: Age 41-60 years Other Risk Factors: No Other congenital or acquired thrombophilia - If yes, enter type in comment: No Thrombosis Risk Factor Assessment Total Risk Factor Score: 1 Thrombosis Risk Factor Assessment Level: Low Risk Assessment and Plan Plan: -severe anemiawith acute and chronic lower GI bleed: Patient will be evaluated with gastro-oncology will transfuse him 1 more unit of PRBC. Coumadin will be held. -Acute renal failure on chronic kidney disease stage II patient will continue to IV fluids with.renal failure secondary to prerenal azotemia and intravascular volume depletion from anemia. -atrial fibrillation probably paroxysmal presently rate controlled -Hypertension because of episodes of this year bleed will monitor the blood pressure without anyantihypertensivemedications.
--- NOTE | 2020-02-11 13:49 | CONS ---
CONSULTATION DATE OF DICTATION: February 11, 2020. REQUESTING PHYSICIAN: Dr. Mathis. REASON FOR CONSULTATION: Severe symptomatic anemia. HISTORY OF PRESENT ILLNESS: The patient is a 55-year-old pleasant white male with history of atrial fibrillation, on Coumadin, admitted to the hospital because of shortness of breath and weakness for the last several weeks duration. He came to the emergency room and was noted to have a hemoglobin of 4.7 g/dL and currently receiving 2 units of PRBC transfusion. The patient has been complaining of intermittent rectal bleeding for the last 5-6 months. In fact, he was scheduled for a colonoscopy on an outpatient basis early part of this year, but this was canceled because of Covid. He denies any abdominal pain. Reports no nausea, vomiting. No prior history of peptic ulcer disease or recent NSAID use. He does complain of occasional heartburn. No dysphagia or odynophagia. PAST MEDICAL HISTORY: Significant for atrial fibrillation for which he underwent cardiac ablation. He has been on Coumadin for the last 15 years. History of hypertension, hyperlipidemia. MEDICATIONS: Medications at home include lisinopril, Amlodipine, Coumadin, spironolactone, metoprolol, Lipitor and aspirin. ALLERGIES: None. SOCIAL HISTORY: No smoking. No alcohol use. FAMILY HISTORY: Unremarkable. PAST SURGICAL HISTORY: Cardiac ablation and tonsillectomy. REVIEW OF SYSTEMS: CARDIOPULMONARY: No chest pain or shortness of breath. : No dysuria or hematuria. MUSCULOSKELETAL unremarkable. SKIN unremarkable. ENDOCRINE unremarkable. PSYCHIATRIC unremarkable. NEUROLOGY: Unremarkable. ENT/VISION: Unremarkable. CONSTITUTIONAL: No recent weight loss. No fever, chills, night sweats. PHYSICAL EXAMINATION: He appears comfortable. No apparent distress. Vital signs are stable. Blood pressure is 133/58. The pulse rate is 68 per minute and afebrile. HEENT examination unremarkable. Conjunctivae pink. Sclerae. Anicteric oral cavity no lesions. NECK: No JVD or lymph node enlargement. CHEST was clear to auscultation. HEART: Regular rate and rhythm. ABDOMEN: Soft. Bowel sounds are positive. No organomegaly. EXTREMITIES: No pedal edema. SKIN no rashes. NEUROLOGIC: Alert and oriented x3. No focal deficits. LABS: WBC 9.5, hemoglobin 5.7, platelets 595, MCV 62. PT 12.1, INR 1.2. BUN and creatinine 27 and 1.31 respectively. Rest of the labs are within normal limits. Stool occult blood was positive. IMPRESSION: 1. Severe symptomatic microcytic hypochromic anemia consistent with iron deficiency anemia. Clinically no evidence of active bleeding except patient has been having intermittent small amount of bright red blood per rectum for the last 5 months status post one unit of PRBC transfusion. Hemoglobin is 6.7. He is getting 2nd unit of PRBC transfusion currently. 2. Atrial fibrillation on Coumadin, currently on hold. 3. History of hypertension. RECOMMENDATIONS: 1. Agree with PRBC transfusion. 2. Proceed with EGD/colonoscopy tomorrow. I discussed with the patient benefits and complications of the procedure and he is agreeable to it. 3. Monitor CBC on a close basis. 4. We will follow with you closely. Thank you for this consultation. JARETT / CLEMENCIA: [id number] /
[2020-02-11] MEDS ORDERED: PEG 3350-NA SULF,BICARB,CL/KCL 4,000 ML BOTTLE PO ONE (17:00)
[2020-02-12] MEDS: SODIUM CHLORIDE 0.9% 1,000 ML IV SCH ×2 (06:31→17:00)
[2020-02-12 07:57] LABS: Anisocytosis Moderate; HCT 24.7 % (39.0-53.0); HGB 7.2 gm/dL (13.0-17.5); Hypochromasia Marked; MCH 18.8 pg (25.0-35.0); MCHC 29.1 g/dL (31.0-37.0); MCV 64.5 fL (80.0-100.0); Mean Platelet Volume 6.4; Microcytosis Marked; Platelet Count 553 k/uL (150-450); Poikilocytosis Marked; RBC 3.83 m/uL (4.30-5.90); RDW 23.4 % (11.5-15.5)
[2020-02-12 08:13] LABS: African American GFR (CKD) >90 (>60 ml/min/1.73 sqM); Anion Gap 6 mmol/L; Blood Urea Nitrogen 16 mg/dL (9-20); Calcium 8.6 mg/dL (8.4-10.2); Carbon Dioxide 28 mmol/L (22-30); Chloride 101 mmol/L (98-107); Glucose 89 mg/dL (74-99); Non-African American GFR(CKD) >90 (>60 ml/min/1.73 sqM); Potassium 4.7 mmol/L (3.5-5.1); Sodium 135 mmol/L (137-145)
[2020-02-12] MEDS: PANTOPRAZOLE 40 MG/10 ML VIAL IVP SCH ×2 (08:16→21:59)
[2020-02-12] MEDS: METOPROLOL SUCCINATE (ER) 100 MG TAB.ER.24H PO SCH (08:16)
[2020-02-12] MEDS: ATORVASTATIN 80 MG TAB PO SCH (08:16)
[2020-02-12] MEDS ORDERED: IV FLUID CONTINUATION 1,000 ML IV ONE (11:16)
[2020-02-12] MEDS ORDERED: PROPOFOL 10 MG/ML 20 ML VIAL IV ONE (11:17)
[2020-02-12] MEDS ORDERED: SODIUM CHLORIDE 0.9% 500 ML IV ONE (12:08)
--- NOTE | 2020-02-12 12:19 | P.PCN ---
Date of Procedure: 02/12/20 Description of Procedure: Brief history: Patient is a pleasant 55-year-old male with a medical history significant for atrial fibrillation on Coumadin therapy who had presented with shortness of breath and weakness found to be severely anemic with a hemoglobin of 4.7. Patient had reported intermittent rectal bleeding. No prior endoscopy reported, he had been scheduled for colonoscopy in the outpatient setting but this was rescheduled due to the outbreak of Coronavirus. Procedure performed: Esophagogastroduodenoscopy with biopsy Colonoscopy with biopsy and tattoo Estimated blood loss: Minimal. Preoperative diagnosis: Iron deficiency anemia, anemia of acute blood loss [place] [facility] [place]: After informed consent was obtained from the patient was brought into the endoscopy unit and IV sedation was administered by anesthesia under continuous monitoring. Initially upper endoscopy was done. The Olympus GF 190 video endoscope was inserted into the mouth and esophagus intubated without any difficulty and was gradually advanced into the stomach and duodenum and carefully examined. The bulb and second part of the duodenum appeared normal, with biopsies taken. The scope was then withdrawn into the stomach adequately insufflated with air and upon careful examination the antrum and body, cardia and fundus appeared normal, except for some mild scattered erythema in the antrum and body suggestive of mild gastritis biopsies taken. The scope was then withdrawn into the esophagus. The GE junction was located at 43 cm to the incisors and biopsied. It appeared regular with no erythema erosions or ulcerations. Rest of the esophagus appeared normal. Patient tolerated the procedure well. At this time the patient continued to remain sedation. Initial digital rectal examination was normal. Pediatric video colonoscope was then inserted into the rectum and gradually advanced to the cecum without any difficulty. Careful examination was performed as the scope was gradually being withdrawn. The prep was fair, prohibiting complete visualization of the colon. The cecum, ascending colon, transverse colon, descending colon, sigmoid colon and rectum which were visualized and appeared normal except for a rectal mass. The mass was circumferential and present from approximately 4 cm from the anal verge to loose 9 cm from the anal verge, was quite friable, however was able to be traversed with a pediatric scope. Multiple biopsies were taken of the mass, and 4 mL of ink were injected, 2 proximal to the mass and to distal to the mass. Retroflexion was performed in the rectum and no lesions were noted. Patient tolerated the procedure well. Impression: 1. Mild gastritis. Biopsies of the duodenum, antrum and body and GE junction. 2. Non-obstructing rectal mass, biopsied with tattoos placed distal and proximal to the mass. Otherwise normal appearing colonoscopy. Recommendations: Findings of this examination were discussed with the patient. Okay to resume liquid diet. Surgical consult placed with the case discussed with the surgical service. Await pathology from biopsies. Suspicion is are for malignant mass.
--- NOTE | 2020-02-12 13:19 | P.PN ---
Subjective was admitted for on and off rectal bleed. Patient had underwent colonoscopy today which showed a friable rectal asked, general surgery is being consulted anti-dilation will be held. Although in future if needed patient the is approved for [facility]. Patient will not need Coumadin down the line. Patient although didn't have any rectal bleed today or since admission. Hemoglobin remained stable and presently able 7. Constitutional: Denied any fatigue denied any fever. Cardio vascular: denied any chest pain, palpitations Gastrointestinal denied any nausea vomiting Pulmonary: Denied any shortness of breath cough Neurologic denied any new focal deficits All inpatient medications were reviewed and appropriate changes in these medications as dictated in the interval history and assessment and plan. Objective - Vital Signs Vital signs: Vital Signs Temp 97.1 F L 02/12/20 08:10 Pulse 73 02/12/20 08:10 Resp 16 02/12/20 08:10 BP 132/75 02/12/20 08:10 Pulse Ox 98 02/12/20 08:10 Intake & Output 02/11/20 02/12/20 02/12/20 18:59 06:59 18:59 Intake Total 700 1000 850 Output Total 200 Balance 500 1000 850 Weight 101.9 kg Intake: IV 850 Intake, IV Titration 150 Amount Sodium Chloride 0.9% 1, 150 000 ml @ 75 mls/hr IV . [id number] [facility] Rx#:[id number] Oral 240 1000 Blood Product 310 Rc Pheresis 2 As3 Unit 310 [id number] Output: Urine 200 Other: Voiding Method Toilet Toilet # Voids 3 5 - Exam PHYSICAL EXAMINATION: GENERAL: The patient is alert and oriented x3, not in any acute distress. Well developed, well nourished. HEENT: Pupils are round and equally reacting to light. EOMI. No scleral icterus. does have conjunctival pallor. Normocephalic, atraumatic. No pharyngeal erythema. No thyromegaly. CARDIOVASCULAR: S1 and S2 present. No murmurs, rubs, or gallops. PULMONARY: Chest is clear to auscultation, no wheezing or crackles. ABDOMEN: Soft, nontender, nondistended, normoactive bowel sounds. No palpable organomegaly. MUSCULOSKELETAL: No joint swelling or deformity. EXTREMITIES: No cyanosis, clubbing, or pedal edema. NEUROLOGICAL: Gross neurological examination did not reveal any focal deficits. SKIN: No rashes. - Labs CBC & Chem 7: 02/12/20 06:50 02/12/20 06:50 Labs: Abnormal Lab Results - Last 24 Hours (Table) 02/10/20 02/12/20 02/12/20 Range/Units 23:10 06:50 06:50 RBC 3.83 L (4.30-5.90) m/uL Hgb 7.2 L (13.0-17.5) gm/dL Hct 24.7 L (39.0-53.0) % MCV 64.5 L (80.0-100.0) fL MCH 18.8 L (25.0-35.0) pg MCHC 29.1 L (31.0-37.0) g/dL RDW 23.4 H (11.5-15.5) % Plt Count 553 H (150-450) k/uL Sodium 135 L (137-145) mmol/L Crossmatch See Detail Assessment and Plan Plan: -severe anemiawith acute and chronic lower GI bleed: hemoglobin is stable patient has a friable rectal mass anticoagulation will be held, general surgery consultation as mentioned above -Acute renal failure on chronic kidney disease stage II improved with the IV fluids and blood transfusion IV fluids were discontinued -atrial fibrillation probably paroxysmal presently rate controlled -Hypertension because of episodes of this year bleed will monitor the blood pressure without anyantihypertensivemedications.
[2020-02-13 07:43] LABS: Anisocytosis Marked; HCT 25.9 % (39.0-53.0); HGB 7.5 gm/dL (13.0-17.5); Hypochromasia Marked; MCH 18.6 pg (25.0-35.0); MCHC 29.1 g/dL (31.0-37.0); MCV 63.7 fL (80.0-100.0); Mean Platelet Volume 6.4; Microcytosis Marked; Platelet Count 558 k/uL (150-450); Poikilocytosis Moderate; RBC 4.06 m/uL (4.30-5.90); RDW 24.2 % (11.5-15.5); WBC 10.1 k/uL (3.8-10.6)
[2020-02-13] MEDS: PANTOPRAZOLE 40 MG/10 ML VIAL IVP SCH ×2 (09:22→21:13)
[2020-02-13] MEDS: METOPROLOL SUCCINATE (ER) 100 MG TAB.ER.24H PO SCH (09:22)
[2020-02-13] MEDS: ATORVASTATIN 80 MG TAB PO SCH (09:22)
[2020-02-13] MEDS ORDERED: IOPAMIDOL CONTRAST (ORAL USE) VIAL PO PRN (11:00)
--- NOTE | 2020-02-13 11:19 | P.PN ---
Subjective was admitted for on and off rectal bleed. Patient had underwent colonoscopy today which showed a friable rectal asked, general surgery is being consulted anti-dilation will be held. Although in future if needed patient the is approved for [facility]. Patient will not need Coumadin down the line. Patient although didn't have any rectal bleed today or since admission. Hemoglobin remained stable and presently able 7. 02/13/2020 Patient is off anticoagulation. The surgery will evaluate the patient andovernightevents. No more clinical GI bleed. Constitutional: Denied any fatigue denied any fever. Cardio vascular: denied any chest pain, palpitations Gastrointestinal denied any nausea vomiting Pulmonary: Denied any shortness of breath cough Neurologic denied any new focal deficits All inpatient medications were reviewed and appropriate changes in these medications as dictated in the interval history and assessment and plan. Objective - Vital Signs Vital signs: Vital Signs Temp 100.0 F H 02/13/20 08:00 Pulse 66 02/13/20 08:00 Resp 17 02/13/20 08:00 BP 144/74 02/13/20 08:00 Pulse Ox 97 02/13/20 08:00 Intake & Output 02/12/20 02/13/20 02/13/20 18:59 06:59 18:59 Intake Total 2049 Output Total 200 Balance 0 -200 Weight 100.5 kg Intake: IV 850 Intake, IV Titration 600 Amount Sodium Chloride 0.9% 1, 600 000 ml @ 75 mls/hr IV . [id number] [facility] Rx#:[id number] Oral 600 Output: Urine 200 Other: Voiding Method Toilet Toilet # Voids 2 2 - Exam PHYSICAL EXAMINATION: GENERAL: The patient is alert and oriented x3, not in any acute distress. Well developed, well nourished. HEENT: Pupils are round and equally reacting to light. EOMI. No scleral icterus. does have conjunctival pallor. Normocephalic, atraumatic. No pharyngeal erythema. No thyromegaly. CARDIOVASCULAR: S1 and S2 present. No murmurs, rubs, or gallops. PULMONARY: Chest is clear to auscultation, no wheezing or crackles. ABDOMEN: Soft, nontender, nondistended, normoactive bowel sounds. No palpable organomegaly. MUSCULOSKELETAL: No joint swelling or deformity. EXTREMITIES: No cyanosis, clubbing, or pedal edema. NEUROLOGICAL: Gross neurological examination did not reveal any focal deficits. SKIN: No rashes. - Labs CBC & Chem 7: 02/13/20 07:19 02/12/20 06:50 Labs: Abnormal Lab Results - Last 24 Hours (Table) 02/13/20 Range/Units 07:19 RBC 4.06 L (4.30-5.90) m/uL Hgb 7.5 L (13.0-17.5) gm/dL Hct 25.9 L (39.0-53.0) % MCV 63.7 L (80.0-100.0) fL MCH 18.6 L (25.0-35.0) pg MCHC 29.1 L (31.0-37.0) g/dL RDW 24.2 H (11.5-15.5) % Plt Count 558 H (150-450) k/uL Assessment and Plan Plan: -severe anemiawith acute and chronic lower GI bleed: hemoglobin is stable patient has a friable rectal mass anticoagulation will be held, general surgery consultation as mentioned above -Acute renal failure on chronic kidney disease stage II improved with the IV fluids and blood transfusion -atrial fibrillation probably paroxysmal presently rate controlled -Hypertension because of episodes of this year bleed will monitor the blood pressure without anyantihypertensivemedications.
--- NOTE | 2020-02-13 12:20 | P.GSCN ---
History of Present Illness Consult date: 02/13/20 Reason for Consult: Rectal mass History of present illness: 55-year-old male comes to the hospital complaining of fatigue and found to be anemic. Patient describes constipation, rectal fullness, bloody stools for the last 6-8 months. No prior colonoscopy. Yesterday's colonoscopy revealed a mass in the rectum extending from 9-4 cm. Biopsies were taken and are pending at this time. Mass was circumferential. Mass was able to be traversed using the pediatric colonoscope. Patient denies abdominal bloating or vomiting. No satiety. Patient's hemoglobin 7.5 after transfusion of 2 units of blood. No family history of colon cancer. Past Medical History Past Medical History: Atrial Fibrillation, Hypertension Additional Past Medical History / Comment(s): SEE DR CROSS H&P History of Any Multi-Drug Resistant Organisms: None Reported Past Surgical History: Cardiac Ablation, Tonsillectomy Additional Past Surgical History / Comment(s): CARDIOVERSION Past Anesthesia/Blood Transfusion Reactions: No Reported Reaction Past Psychological History: No Psychological Hx Reported Smoking Status: Former smoker Past Alcohol Use History: Occasional Past Drug Use History: None Reported Medications and Allergies Home Medications Medication Instructions Recorded Confirmed Type Aspirin 81 mg PO DAILY 04/11/14 02/10/20 History Atorvastatin [Lipitor] 80 mg PO DAILY 04/11/14 02/10/20 History Metoprolol Succinate 200 mg PO DAILY 08/09/18 02/10/20 History lisinopriL 20 mg PO DAILY #0 02/12/20 02/10/20 Rx Allergies Allergy/AdvReac Type Severity Reaction Status Date / Time No Known Allergies Allergy Verified 02/10/20 22:28 Surgical - Exam Vital Signs Temp Pulse Resp BP Pulse Ox 98.6 F 71 16 116/65 100 02/10/20 21:42 02/10/20 21:42 02/10/20 21:42 02/10/20 21:42 02/10/20 21:42 Physical exam: General: Well-developed, well-nourished HEENT: Normocephalic, sclerae nonicteric Abdomen: Nontender, nondistended Extremities: No edema Neuro: Alert and oriented Rectal: Palpable mass just proximal to anal sphincter estimate mass extends to within 1-2 cm above dentate line. Results - Labs 02/13/20 07:19 02/12/20 06:50 Abnormal Lab Results - Last 24 Hours (Table) 02/13/20 Range/Units 07:19 RBC 4.06 L (4.30-5.90) m/uL Hgb 7.5 L (13.0-17.5) gm/dL Hct 25.9 L (39.0-53.0) % MCV 63.7 L (80.0-100.0) fL MCH 18.6 L (25.0-35.0) pg MCHC 29.1 L (31.0-37.0) g/dL RDW 24.2 H (11.5-15.5) % Plt Count 558 H (150-450) k/uL Assessment and Plan (1) Rectal mass Narrative/Plan: 55-year-old male with suspected rectal adenocarcinoma. Await biopsy results. Await CT chest abdomen and pelvis ordered earlier today. May discharge following that if patient feels well enough. Outpatient follow-up with oncology. Patient will require further imaging which may include MRI pelvis versus endoscopic ultrasound. Following that patient will likely benefit from neoadjuvant chemoradiation. Discussed possible outpatient referral to colorectal surgery given the low nature of this mass to see if they believe a sphincter sparing resection is possible. Current Visit: Yes Status: Acute Code(s): K62.89 - OTHER SPECIFIED DISEASES OF ANUS AND RECTUM SNOMED Code(s): 789372035
--- NOTE | 2020-02-13 12:53 | P.PN ---
Subjective Progress Note Date: 02/13/20 Principal diagnosis: Severe symptomatic anemia The patient is a pleasant 55-year-old male with a past medical history significant for atrial fibrillation on Coumadin who presented to the hospital with shortness of breath and weakness found to be severely anemic with an initial hemoglobin of 4.7. The patient had reported that he has been having intermittent rectal bleeding and pressure with bowel movements for the past 5-6 months. Yesterday he underwent EGD and colonoscopy area and the EGD showed mild gastritis and the colonoscopy showed a non-obstructing rectal mass, it was biopsied with tattoos placed distal and proximal to the mass. Surgery was consulted. Objective - Vital Signs Vital signs: Vital Signs Temp 100.0 F H 02/13/20 08:00 Pulse 66 02/13/20 08:00 Resp 17 02/13/20 08:00 BP 144/74 02/13/20 08:00 Pulse Ox 97 02/13/20 08:00 Intake & Output 02/12/20 02/13/20 02/13/20 18:59 06:59 18:59 Intake Total 2050 90 Output Total 200 Balance 2050 -200 90 Weight 100.5 kg Intake: IV 850 Intake, IV Titration 600 Amount Sodium Chloride 0.9% 1, 600 000 ml @ 75 mls/hr IV . [id number] [facility] Rx#:[id number] Oral 600 90 Output: Urine 200 Other: Voiding Method Toilet Toilet # Voids 2 2 - Exam General appearance: The patient is alert, oriented, in no acute distress. HET: Head is normocephalic and atraumatic. Conjunctiva pink. Sclerae anicteric. Neck: Supple without lymphadenopathy. Trachea midline. Abdomen: Soft, nontender, nondistended with bowel sounds. Extremities: Normal skin color and turgor. Neurological: No focal deficits. Alert and oriented 3. - Labs CBC & Chem 7: 02/13/20 07:19 02/12/20 06:50 Labs: Abnormal Lab Results - Last 24 Hours (Table) 02/13/20 Range/Units 07:19 RBC 4.06 L (4.30-5.90) m/uL Hgb 7.5 L (13.0-17.5) gm/dL Hct 25.9 L (39.0-53.0) % MCV 63.7 L (80.0-100.0) fL MCH 18.6 L (25.0-35.0) pg MCHC 29.1 L (31.0-37.0) g/dL RDW 24.2 H (11.5-15.5) % Plt Count 558 H (150-450) k/uL Assessment and Plan Assessment: 1. Severe symptomatic microcytic hypochromic anemia consistent with iron deficiency anemia. Status post 2 units of PRBC 2. Rectal mass 3. Atrial fibrillation on Coumadin, currently on hold 3. History of hypertension Plan: 1. Agree with PRBC transfusion 2. EGD/colonoscopy completed. RAFAEL findings include mild gastritis, colonoscopy findings included a nonobstructing a rectal mass which was biopsied with tattoos placed distal and proximal to the mass. 3. Monitor CBC daily 4. Consult surgery 5. CT of chest abdomen and pelvis with contrast ordered 6. Recommend outpatient follow-up with oncology 1-2 weeks The impression and plan of care has been dictated as directed. I performed a history and examination of this patient, discussed the same with the dictator. I agree with the dictator's note ,documented as a scribe. Any additional findings or plans will be noted.
[2020-02-13] MEDS: ACETAMINOPHEN TAB 325 MG TAB PO PRN ×2 (13:29→23:28)
--- NOTE | 2020-02-13 15:22 | XR ---
EXAMINATION TYPE: XR chest 2V DATE OF EXAM: 02/13/2020 COMPARISON: CT chest abdomen pelvis 02/13/2020 INDICATION: Fever TECHNIQUE: Frontal and lateral views of the chest are obtained. FINDINGS: The heart size is normal. The pulmonary vasculature is normal. There is a 1 cm oval density in the anterior right middle lobe. Lungs otherwise appear clear.. IMPRESSION: 1. Right middle lobe nodule. Please see CT chest.
--- NOTE | 2020-02-13 15:31 | CT ---
EXAMINATION TYPE: CT ChestAbdPelvis w con DATE OF EXAM: 02/13/2020 COMPARISON: None HISTORY: Rectal mass. CT DLP: 1640.7 mGycm Automated exposure control for dose reduction was used. CONTRAST: CT scan of the chest, abdomen and pelvis is performed with Oral Contrast and with IV Contrast, patien t injected with 100 mL of Isovue 300. FINDINGS: LUNGS: There are multiple less than 5 mm pulmonary nodules seen within the lungs bilaterally. Within the right middle lobe there is a 9 mm pulmonary nodule. Additionally within the superior segment of t he left lower lobe there is an 8 mm pulmonary nodule. Within the anterior segment of the right upper lobe there is a 10 mm pulmonary nodule which may contain a calcification which can be seen with a gra nuloma and mucinous metastasis. Additional right upper lobe pulmonary nodule on axial image 34 measur es 11 mm. On the left posterior lung base there is a 9 mm pulmonary nodule. There is a tiny right pleural effusion. No consolidation. No pneumothorax. MEDIASTINUM: There is shotty lymphadenopathy in the prevascular space. No pathologic hilar or mediast inal adenopathy. Shotty adenopathy in the axilla. Incidental note made of gynecomastia. Aorta of norm al caliber. Heart size mildly prominent. Mild atherosclerotic changes. OTHER: Bilateral mild gynecomastia LIVER/GB: There are numerous areas of abnormal attenuation throughout all segments of the liver osiris tible with widespread metastases. The largest lesion measures 10 cm. PANCREAS: No significant abnormality is seen. SPLEEN: No significant abnormality is seen. ADRENALS: 8 mm hypodense lesion involving the right adrenal gland likely related to incidental adeno ma. Mild left adrenal gland thickening is nonspecific.. KIDNEYS: Hypodensity within the left kidney is too small to characterize and indeterminate could be c orrelated with ultrasound. BOWEL: Thickening of the rectosigmoid wall is seen. The enlarged lymph nodes are seen adjacent to th is region.. LYMPH NODES: There is extensive periportal lymphadenopathy with matted adenopathy measuring a short a xis of 3 cm. Multiple lymph nodes in the pelvis are seen adjacent to a thickened bowel wall rectosigm oid colon. These multiple lymph nodes measure approximately 1.4 cm in short axis compatible with path ologic adenopathy. OSSEOUS STRUCTURES: Hypertrophic and degenerative change of the spine. Sclerotic density in the midth oracic and lower lumbar spine are too small to characterize. Additional mesenteric and peripancreatic lymph nodes are seen. Retroperitoneal adenopathy and is noted greater on the left measuring a short axis of 1.7 cm. OTHER: Small amount of ascites is seen. Aorta of normal caliber IMPRESSION: 1. Marked rectosigmoid wall thickening compatible with malignancy. There is pelvic, retroperitoneal a nd intra-abdominal extensive lymphadenopathy compatible with metastases. 2. Numerous large intrahepatic lesions with the largest measuring approximately 10 cm compatible with metastases. All lobes and segments appear to be involved. 3. Numerous bilateral pulmonary nodules compatible with metastases.
[2020-02-13 23:11] LABS: Appearance,Urine Clear (Clear); Bilirubin,Urine Negative (Negative); Blood,Urine Negative (Negative); Color,Urine Yellow; Glucose,Urine (UA) Negative (Negative); Ketones,Urine Negative (Negative); Leukocyte Esterase,Urine Negative (Negative); Nitrite,Urine Negative (Negative); Protein,Urine Trace (Negative); Specific Gravity,Urine 1.029 (1.001-1.035)
[2020-02-14 07:32] LABS: Anisocytosis Marked; HCT 25.8 % (39.0-53.0); HGB 7.2 gm/dL (13.0-17.5); Hypochromasia Marked; MCH 18.3 pg (25.0-35.0); MCV 65.3 fL (80.0-100.0); Mean Platelet Volume 6.4; Microcytosis Marked; Platelet Count 470 k/uL (150-450); Poikilocytosis Moderate; RBC 3.95 m/uL (4.30-5.90); WBC 14.4 k/uL (3.8-10.6)
[2020-02-14 07:49] LABS: African American GFR (CKD) >90 (>60 ml/min/1.73 sqM); Anion Gap 3 mmol/L; Blood Urea Nitrogen 14 mg/dL (9-20); Calcium 8.4 mg/dL (8.4-10.2); Carbon Dioxide 32 mmol/L (22-30); Chloride 99 mmol/L (98-107); Glucose 107 mg/dL (74-99); Non-African American GFR(CKD) 82 (>60 ml/min/1.73 sqM); Potassium 4.5 mmol/L (3.5-5.1); Sodium 134 mmol/L (137-145)
[2020-02-14 07:55] LABS: RDW 25.3 % (11.5-15.5)
[2020-02-14] MEDS: ATORVASTATIN 80 MG TAB PO SCH (09:30)
[2020-02-14] MEDS: PANTOPRAZOLE 40 MG/10 ML VIAL IVP SCH ×2 (09:30→20:23)
[2020-02-14] MEDS: METOPROLOL SUCCINATE (ER) 100 MG TAB.ER.24H PO SCH (09:30)
[2020-02-14] MEDS: polyethylene glycoL 3350 17 GM POWD.PACK PO SCH (09:31)
--- NOTE | 2020-02-14 12:36 | P.PN ---
Subjective was admitted for on and off rectal bleed. Patient had underwent colonoscopy today which showed a friable rectal asked, general surgery is being consulted anti-dilation will be held. Although in future if needed patient the is approved for [facility]. Patient will not need Coumadin down the line. Patient although didn't have any rectal bleed today or since admission. Hemoglobin remained stable and presently able 7. 02/13/2020 Patient is off anticoagulation. The surgery will evaluate the patient andovernightevents. No more clinical GI bleed. Constitutional: Denied any fatigue denied any fever. Cardio vascular: denied any chest pain, palpitations Gastrointestinal denied any nausea vomiting Pulmonary: Denied any shortness of breath cough Neurologic denied any new focal deficits Subjective 02/14/2020, this is the first in taking care of the patient Patient is awake and alert, sitting in chair fully oriented and not in distress. He is aware of his diagnosis of rectal mass which is highly suspicious for cancer as he told me by himself. He confirms that he was taking Coumadin at home for A. fib which is on hold for now. He denies chest pain or dyspnea. No nausea vomiting. No abdominal pain however he has some loose bowel movement with some chunks in it. He had low- grade fever 101.2. Most likely source is proctitis related to his rectal mass, we will start the patient on Zosyn Objective - Vital Signs Vital signs: Vital Signs Temp 99.6 F 02/14/20 09:20 Pulse 72 02/14/20 11:30 Resp 16 02/14/20 11:30 BP 109/63 02/14/20 11:30 Pulse Ox 99 02/14/20 11:30 Intake & Output 02/13/20 02/14/20 02/14/20 18:59 06:59 18:59 Intake Total 330 200 Balance 330 200 Weight 101.3 kg Intake: Oral 330 200 Other: Voiding Method Toilet Toilet # Voids 1 1 - Exam GENERAL: The patient is alert and oriented x3, not in any acute distress. Well developed, well nourished. HEENT: Pupils are round and equally reacting to light. EOMI. No scleral icterus. No conjunctival pallor. Normocephalic, atraumatic. No pharyngeal erythema. No thyromegaly. CARDIOVASCULAR: S1 and S2 present. No murmurs, rubs, or gallops. PULMONARY: Chest is clear to auscultation, no wheezing or crackles. ABDOMEN: Soft, nontender, nondistended, normoactive bowel sounds. No palpable organomegaly. MUSCULOSKELETAL: No joint swelling or deformity. EXTREMITIES: No cyanosis, clubbing, or pedal edema. NEUROLOGICAL: Gross neurological examination did not reveal any focal deficits. SKIN: No rashes. no petechiae. - Labs CBC & Chem 7: 02/14/20 07:07 02/14/20 07:07 Labs: Abnormal Lab Results - Last 24 Hours (Table) 02/13/20 02/13/20 02/14/20 Range/Units 07:19 22:56 07:07 WBC 14.4 H (3.8-10.6) k/uL RBC 3.95 L (4.30-5.90) m/uL Hgb 7.2 L (13.0-17.5) gm/dL Hct 25.8 L (39.0-53.0) % MCV 65.3 L (80.0-100.0) fL MCH 18.3 L (25.0-35.0) pg MCHC 28.0 L (31.0-37.0) g/dL RDW 25.3 H (11.5-15.5) % Plt Count 470 H (150-450) k/uL Sodium (137-145) mmol/L Carbon Dioxide (22-30) mmol/L Glucose (74-99) mg/dL Carcinoembryonic Ag 1078.1 H (0.0-4.9) ng/mL Urine Protein Trace H (Negative) 02/14/20 Range/Units 07:07 WBC (3.8-10.6) k/uL RBC (4.30-5.90) m/uL Hgb (13.0-17.5) gm/dL Hct (39.0-53.0) % MCV (80.0-100.0) fL MCH (25.0-35.0) pg MCHC (31.0-37.0) g/dL RDW (11.5-15.5) % Plt Count (150-450) k/uL Sodium 134 L (137-145) mmol/L Carbon Dioxide 32 H (22-30) mmol/L Glucose 107 H (74-99) mg/dL Carcinoembryonic Ag (0.0-4.9) ng/mL Urine Protein (Negative) Assessment and Plan Assessment: -Possible proctitis related to his rectal mass, associated with sepsis with fever and leukocytosis. start Zosyn. Send stool for C. diff and stool culture sensitivity. -severe anemiawith acute and chronic lower GI bleed: hemoglobin is stable patient has a friable rectal mass anticoagulation will be held, general surgery consultation as mentioned above -Acute renal failure on chronic kidney disease stage II improved with the IV fluids and blood transfusion -atrial fibrillation probably paroxysmal presently rate controlled -Hypertension because of episodes of this year bleed will monitor the blood pressure without anyantihypertensivemedications.
[2020-02-14] MEDS: PIPERACILLIN-TAZOBACTAM 3.375 GM in SODIUM CHLORIDE 0.9% 100 ML IVPB SCH ×2 (14:02→20:23)
[2020-02-14] MEDS: ACETAMINOPHEN TAB 325 MG TAB PO PRN ×2 (14:02→20:23)
--- NOTE | 2020-02-14 15:32 | P.PN ---
<NellalexandriaChristine sher - Last Filed: 02/14/20 15:21> Subjective Progress Note Date: 02/14/20 CHIEF COMPLAINT: Rectal mass HISTORY OF PRESENT ILLNESS: Patient is being followed for his rectal mass. He had been having blood in his stools and feeling weak. Also, patient has noted a 47 pound unintentional weight loss. He denies any pain. He has had no further blood per rectum. Patient had computed tomography scan of the chest abdomen and pelvis results reported marked rectosigmoid sigmoid colon wall thickening compatible with malignancy. There is pelvic, retroperitoneal and intra- abdominal extensive lymphadenopathy compatible with metastasis. Numerous large intrahepatic lesions with the largest measuring 10 cm compatible with metastasis. All lobes and segments appear to be involved. Numerous bilateral pulmonary nodules compatible with metastasis. Oncology consult has been placed. He is tolerating regular diet. Patient did have temp of 101.2 last night and now down to 99.8. WBC 14.4 hemoglobin 7.2 platelets 470 CEA elevated PHYSICAL EXAM: VITAL SIGNS: Reviewed. GENERAL: Well-developed in no acute distress. HEENT: No sclera icterus. Extraocular movements grossly intact. Moist buccal mucosa. Head is atraumatic, normocephalic. ABDOMEN: Soft. Nondistended. Nontender. NEUROLOGIC: Alert and oriented. Cranial nerves II through XII grossly intact. ASSESSMENT: 1. Rectal mass with suspected rectal adenocarcinoma and evidence of metastatic disease noted on CAT scan PLAN: -Consult oncology -Continue regular diet -Follow up on biopsy results from colonoscopy Physician Search Lead note has been reviewed by physician. Signing provider agrees with the documented findings, assessment, and plan of care. Objective - Vital Signs Vital signs: Vital Signs Temp 99.8 F H 02/14/20 14:04 Pulse 72 02/14/20 11:30 Resp 16 02/14/20 11:30 BP 109/63 02/14/20 11:30 Pulse Ox 99 02/14/20 11:30 Intake & Output 02/13/20 02/14/20 02/14/20 18:59 06:59 18:59 Intake Total 330 800 Balance 330 800 Weight 101.3 kg Intake: Intake, IV Titration 100 Amount Piperacillin-Tazobactam 3 100 .375 gm In Sodium Chloride 0.9% 100 ml @ 25 mls/hr IVPB Q8H [facility] Rx#: [id number] Oral 330 700 Other: Voiding Method Toilet Toilet # Voids 1 1 2 - Labs CBC & Chem 7: 02/14/20 07:07 02/14/20 07:07 Labs: Abnormal Lab Results - Last 24 Hours (Table) 02/13/20 02/13/20 02/14/20 Range/Units 07:19 22:56 07:07 WBC 14.4 H (3.8-10.6) k/uL RBC 3.95 L (4.30-5.90) m/uL Hgb 7.2 L (13.0-17.5) gm/dL Hct 25.8 L (39.0-53.0) % MCV 65.3 L (80.0-100.0) fL MCH 18.3 L (25.0-35.0) pg MCHC 28.0 L (31.0-37.0) g/dL RDW 25.3 H (11.5-15.5) % Plt Count 470 H (150-450) k/uL Sodium (137-145) mmol/L Carbon Dioxide (22-30) mmol/L Glucose (74-99) mg/dL Carcinoembryonic Ag 1078.1 H (0.0-4.9) ng/mL Urine Protein Trace H (Negative) 02/14/20 Range/Units 07:07 WBC (3.8-10.6) k/uL RBC (4.30-5.90) m/uL Hgb (13.0-17.5) gm/dL Hct (39.0-53.0) % MCV (80.0-100.0) fL MCH (25.0-35.0) pg MCHC (31.0-37.0) g/dL RDW (11.5-15.5) % Plt Count (150-450) k/uL Sodium 134 L (137-145) mmol/L Carbon Dioxide 32 H (22-30) mmol/L Glucose 107 H (74-99) mg/dL Carcinoembryonic Ag (0.0-4.9) ng/mL Urine Protein (Negative) <Adolfo Mena - Last Filed: 02/14/20 19:22> Subjective As above. Reviewed CAT scan finngs with the patient. Recommend oncology evaluation at this time. Patient with fevers last night. Etiology unclear. Could be secondary to tumor burden. Continue diet. Will follow. Objective - Vital Signs Vital signs: Vital Signs Temp 99.9 F H 02/14/20 15:45 Pulse 66 02/14/20 15:45 Resp 16 02/14/20 15:45 BP 129/58 02/14/20 15:45 Pulse Ox 98 02/14/20 15:45 Intake & Output 02/14/20 02/14/20 02/15/20 06:59 18:59 06:59 Intake Total 1040 Balance 1040 Weight 101.3 kg Intake: Intake, IV Titration 100 Amount Piperacillin-Tazobactam 3 100 .375 gm In Sodium Chloride 0.9% 100 ml @ 25 mls/hr IVPB Q8H [facility] Rx#: [id number] Oral 940 Other: Voiding Method Toilet Toilet # Voids 1 2 - Labs CBC & Chem 7: 02/14/20 07:07 02/14/20 07:07 Labs: Abnormal Lab Results - Last 24 Hours (Table) 02/13/20 02/13/20 02/14/20 Range/Units 07:19 22:56 07:07 WBC 14.4 H (3.8-10.6) k/uL RBC 3.95 L (4.30-5.90) m/uL Hgb 7.2 L (13.0-17.5) gm/dL Hct 25.8 L (39.0-53.0) % MCV 65.3 L (80.0-100.0) fL MCH 18.3 L (25.0-35.0) pg MCHC 28.0 L (31.0-37.0) g/dL RDW 25.3 H (11.5-15.5) % Plt Count 470 H (150-450) k/uL Sodium (137-145) mmol/L Carbon Dioxide (22-30) mmol/L Glucose (74-99) mg/dL Carcinoembryonic Ag 1078.1 H (0.0-4.9) ng/mL Urine Protein Trace H (Negative) 02/14/20 Range/Units 07:07 WBC (3.8-10.6) k/uL RBC (4.30-5.90) m/uL Hgb (13.0-17.5) gm/dL Hct (39.0-53.0) % MCV (80.0-100.0) fL MCH (25.0-35.0) pg MCHC (31.0-37.0) g/dL RDW (11.5-15.5) % Plt Count (150-450) k/uL Sodium 134 L (137-145) mmol/L Carbon Dioxide 32 H (22-30) mmol/L Glucose 107 H (74-99) mg/dL Carcinoembryonic Ag (0.0-4.9) ng/mL Urine Protein (Negative) Microbiology - Last 24 Hours (Table) 02/13/20 13:16 Blood Culture - Preliminary Blood No Growth after 24 hours Assessment and Plan (1) Rectal mass Current Visit: Yes Status: Acute Code(s): K62.89 - OTHER SPECIFIED DISEASES OF ANUS AND RECTUM SNOMED Code(s): 691996515
--- NOTE | 2020-02-14 16:03 | P.PN ---
Subjective Progress Note Date: 02/14/20 Principal diagnosis: Severe symptomatic anemia The patient is a pleasant 55-year-old male with a past medical history significant for atrial fibrillation on Coumadin who presented to the hospital with shortness of breath and weakness found to be severely anemic with an initial hemoglobin of 4.7. The patient had reported that he has been having intermittent rectal bleeding and pressure with bowel movements for the past 5-6 months. He is status post EGD and colonoscopy, the EGD showed mild gastritis and the colonoscopy showed a non-obstructing rectal mass, it was biopsied with tattoos placed distal and proximal to the mass. Surgery was consulted and has seen patient. CT abdomen and pelvis results reported marked rectosigmoid sigmoid colon wall thickening compatible with malignancy. There is pelvic, retroperitoneal and intra-abdominal extensive lymphadenopathy compatible with diastasis. Numerous large intrahepatic lesions with the largest measuring 10 cm compatible with metastasis. All lobes and segments appear to be involved. Numerous bilateral pulmonary nodules compatible with metastasis. Oncology consult has been ordered. She did have an elevated temp last evening with the highest at 101.2. Objective - Vital Signs Vital signs: Vital Signs Temp 99.8 F H 02/14/20 14:04 Pulse 72 02/14/20 11:30 Resp 16 02/14/20 11:30 BP 109/63 02/14/20 11:30 Pulse Ox 99 02/14/20 11:30 Intake & Output 02/13/20 02/14/20 02/14/20 18:59 06:59 18:59 Intake Total 330 400 Balance 330 400 Weight 101.3 kg Intake: Oral 330 400 Other: Voiding Method Toilet Toilet # Voids 1 1 - Exam General appearance: The patient is alert, oriented, in no acute distress. HET: Head is normocephalic and atraumatic. Conjunctiva pink. Sclerae anicteric. Neck: Supple without lymphadenopathy. Trachea midline. Abdomen: Soft, nontender, nondistended with bowel sounds. Extremities: Normal skin color and turgor. Neurological: No focal deficits. Alert and oriented 3. - Labs CBC & Chem 7: 02/14/20 07:07 02/14/20 07:07 Labs: Abnormal Lab Results - Last 24 Hours (Table) 02/13/20 02/13/20 02/14/20 Range/Units 07:19 22:56 07:07 WBC 14.4 H (3.8-10.6) k/uL RBC 3.95 L (4.30-5.90) m/uL Hgb 7.2 L (13.0-17.5) gm/dL Hct 25.8 L (39.0-53.0) % MCV 65.3 L (80.0-100.0) fL MCH 18.3 L (25.0-35.0) pg MCHC 28.0 L (31.0-37.0) g/dL RDW 25.3 H (11.5-15.5) % Plt Count 470 H (150-450) k/uL Sodium (137-145) mmol/L Carbon Dioxide (22-30) mmol/L Glucose (74-99) mg/dL Carcinoembryonic Ag 1078.1 H (0.0-4.9) ng/mL Urine Protein Trace H (Negative) 02/14/20 Range/Units 07:07 WBC (3.8-10.6) k/uL RBC (4.30-5.90) m/uL Hgb (13.0-17.5) gm/dL Hct (39.0-53.0) % MCV (80.0-100.0) fL MCH (25.0-35.0) pg MCHC (31.0-37.0) g/dL RDW (11.5-15.5) % Plt Count (150-450) k/uL Sodium 134 L (137-145) mmol/L Carbon Dioxide 32 H (22-30) mmol/L Glucose 107 H (74-99) mg/dL Carcinoembryonic Ag (0.0-4.9) ng/mL Urine Protein (Negative) Assessment and Plan Assessment: 1. Severe symptomatic microcytic hypochromic anemia consistent with iron deficiency anemia. Status post 2 units of PRBC 2. Rectal mass 3. Atrial fibrillation on Coumadin, currently on hold 3. History of hypertension Plan: 1. Agree with PRBC transfusion 2. EGD/colonoscopy completed. RAFAEL findings include mild gastritis, colonoscopy findings included a nonobstructing a rectal mass which was biopsied with tattoos placed distal and proximal to the mass. 3. Monitor CBC daily 4. Consult surgery 5. CT of chest abdomen and pelvis with contrast ordered and reviewed, likely metastatic 6. Read with oncology consult while inpatient 7. Follow-up on biopsy results from colonoscopy The impression and plan of care has been dictated as directed. I performed a history and examination of this patient, discussed the same with the dictator. I agree with the dictator's note ,documented as a scribe. Any additional findings or plans will be noted.
[2020-02-14] MEDS: SODIUM CHLORIDE 0.9% 1,000 ML IV SCH (20:24)
[2020-02-15] MEDS: PIPERACILLIN-TAZOBACTAM 3.375 GM in SODIUM CHLORIDE 0.9% 100 ML IVPB SCH ×3 (04:24→22:02)
[2020-02-15] MEDS: ACETAMINOPHEN TAB 325 MG TAB PO PRN ×2 (04:28→23:28)
[2020-02-15 08:12] LABS: Anisocytosis Marked; Basophils % (A) 0 %; Eosinophils # (A) 0.2 k/uL (0-0.7); Eosinophils % (A) 1 %; HCT 25.5 % (39.0-53.0); HGB 7.1 gm/dL (13.0-17.5); Hypochromasia Marked; Lymphocytes # (A) 0.9 k/uL (1.0-4.8); Lymphocytes % (A) 8 %; MCH 18.1 pg (25.0-35.0); MCHC 27.9 g/dL (31.0-37.0); MCV 65.1 fL (80.0-100.0); Mean Platelet Volume 6.6; Microcytosis Marked; Monocytes # (A) 0.8 k/uL (0-1.0); Monocytes % (A) 7 %; Neutrophils # (A) 9.5 k/uL (1.3-7.7); Neutrophils % (A) 82 %; Platelet Count 484 k/uL (150-450); Poikilocytosis Moderate; RBC 3.91 m/uL (4.30-5.90); WBC 11.5 k/uL (3.8-10.6)
[2020-02-15 08:34] LABS: ALT 37 U/L (4-49); AST 87 U/L (17-59); African American GFR (CKD) >90 (>60 ml/min/1.73 sqM); Albumin 3.1 g/dL (3.5-5.0); Alkaline Phosphatase 134 U/L (38-126); Anion Gap 5 mmol/L; Blood Urea Nitrogen 16 mg/dL (9-20); Calcium 8.2 mg/dL (8.4-10.2); Carbon Dioxide 29 mmol/L (22-30); Chloride 101 mmol/L (98-107); Glucose 103 mg/dL (74-99); Non-African American GFR(CKD) 86 (>60 ml/min/1.73 sqM); Potassium 4.6 mmol/L (3.5-5.1); Sodium 135 mmol/L (137-145); Total Bilirubin 0.8 mg/dL (0.2-1.3); Total Protein 6.1 g/dL (6.3-8.2)
[2020-02-15] MEDS: METOPROLOL SUCCINATE (ER) 100 MG TAB.ER.24H PO SCH (08:46)
[2020-02-15] MEDS: PANTOPRAZOLE 40 MG/10 ML VIAL IVP SCH (08:46)
[2020-02-15] MEDS: ATORVASTATIN 80 MG TAB PO SCH (08:46)
[2020-02-15] MEDS: polyethylene glycoL 3350 17 GM POWD.PACK PO SCH (08:50)
--- NOTE | 2020-02-15 10:47 | P.PN ---
Subjective was admitted for on and off rectal bleed. Patient had underwent colonoscopy today which showed a friable rectal asked, general surgery is being consulted anti-dilation will be held. Although in future if needed patient the is approved for PopsVakast. Patient will not need Coumadin down the line. Patient although didn't have any rectal bleed today or since admission. Hemoglobin remained stable and presently able 7. 02/13/2020 Patient is off anticoagulation. The surgery will evaluate the patient andovernightevents. No more clinical GI bleed. Constitutional: Denied any fatigue denied any fever. Cardio vascular: denied any chest pain, palpitations Gastrointestinal denied any nausea vomiting Pulmonary: Denied any shortness of breath cough Neurologic denied any new focal deficits Subjective 02/14/2020, this is the first in taking care of the patient Patient is awake and alert, sitting in chair fully oriented and not in distress. He is aware of his diagnosis of rectal mass which is highly suspicious for cancer as he told me by himself. He confirms that he was taking Coumadin at home for A. fib which is on hold for now. He denies chest pain or dyspnea. No nausea vomiting. No abdominal pain however he has some loose bowel movement with some chunks in it. He had low- grade fever 101.2. Most likely source is proctitis related to his rectal mass, we will start the patient on Zosyn. C. diff is negative. 02/15/2020 Patient is awake and alert, he has good strength, no abdominal pain or vomiting however he still have some loose bowel movement. No blood in stool. Patient conference to me he was taking Coumadin prior to coming to the hospital for A. fib however it is on hold now, oncology team are recommending liver biopsy so we will not start anticoagulation now. CEA is elevated 1078 Patient still have low-grade fever 99.9 and white cell counts, down to 11 K, continue with Zosyn for now. C. diff is negative. Stool culture are pending. Colonic biopsy showing moderately differentiated adenocarcinoma. With evidence of liver and pulmonary metastases and intra-abdominal lymphadenopathy per CAT scan of the abdomen and pelvis Objective - Vital Signs Vital signs: Vital Signs Temp 98 F 02/15/20 07:52 Pulse 71 02/15/20 08:45 Resp 16 02/15/20 08:45 BP 113/56 02/15/20 07:52 Pulse Ox 96 02/15/20 07:52 Intake & Output 02/14/20 02/15/20 02/15/20 18:59 06:59 18:59 Intake Total 1040 240 Balance 1040 240 Weight 101 kg Intake: Intake, IV Titration 100 Amount Piperacillin-Tazobactam 3 100 .375 gm In Sodium Chloride 0.9% 100 ml @ 25 mls/hr IVPB Q8H [facility] Rx#: [id number] Oral 940 240 Other: Voiding Method Toilet Toilet # Voids 2 1 - Exam GENERAL: The patient is alert and oriented x3, not in any acute distress. Well developed, well nourished. HEENT: Pupils are round and equally reacting to light. EOMI. No scleral icterus. No conjunctival pallor. Normocephalic, atraumatic. No pharyngeal erythema. No thyromegaly. CARDIOVASCULAR: S1 and S2 present. No murmurs, rubs, or gallops. PULMONARY: Chest is clear to auscultation, no wheezing or crackles. ABDOMEN: Soft, nontender, nondistended, normoactive bowel sounds. No palpable organomegaly. MUSCULOSKELETAL: No joint swelling or deformity. EXTREMITIES: No cyanosis, clubbing, or pedal edema. NEUROLOGICAL: Gross neurological examination did not reveal any focal deficits. SKIN: No rashes. no petechiae. - Labs CBC & Chem 7: 02/15/20 07:20 02/15/20 07:20 Labs: Abnormal Lab Results - Last 24 Hours (Table) 02/15/20 02/15/20 Range/Units 07:20 07:20 WBC 11.5 H (3.8-10.6) k/uL RBC 3.91 L (4.30-5.90) m/uL Hgb 7.1 L (13.0-17.5) gm/dL Hct 25.5 L (39.0-53.0) % MCV 65.1 L (80.0-100.0) fL MCH 18.1 L (25.0-35.0) pg MCHC 27.9 L (31.0-37.0) g/dL RDW 25.0 H (11.5-15.5) % Plt Count 484 H (150-450) k/uL Neutrophils # 9.5 H (1.3-7.7) k/uL Lymphocytes # 0.9 L (1.0-4.8) k/uL Sodium 135 L (137-145) mmol/L Glucose 103 H (74-99) mg/dL Calcium 8.2 L (8.4-10.2) mg/dL AST 87 H (17-59) U/L Alkaline Phosphatase 134 H (38-126) U/L Total Protein 6.1 L (6.3-8.2) g/dL Albumin 3.1 L (3.5-5.0) g/dL Microbiology - Last 24 Hours (Table) 02/14/20 17:47 Stool Culture - Preliminary Stool 02/13/20 13:16 Blood Culture - Preliminary Blood No Growth after 24 hours Assessment and Plan Assessment: -Rectal adenocarcinoma, 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 Oncology team on the case. Liver biopsy is recommended -Possible proctitis related to his rectal mass, associated with sepsis with fever and leukocytosis. start Zosyn. Send stool for C. diff and stool culture sensitivity. -severe anemia with acute and chronic lower GI bleed: hemoglobin is stable patient has a friable rectal mass anticoagulation will be held, general surgery consultation as mentioned above -Acute renal failure on chronic kidney disease stage II improved with the IV fluids and blood transfusion -atrial fibrillation probably paroxysmal presently rate controlled -Hypertension because of episodes of this year bleed will monitor the blood pressure without anyantihypertensivemedications. DVT prophylaxis: No anticoagulation and review of his GI bleed GI prophylaxis, Ppi Prognosis is guarded
--- NOTE | 2020-02-15 11:36 | P.PN ---
Subjective Progress Note Date: 02/15/20 Principal diagnosis: Severe symptomatic anemia The patient is a pleasant 55-year-old male with a past medical history significant for atrial fibrillation on Coumadin who presented to the hospital with shortness of breath and weakness found to be severely anemic with an initial hemoglobin of 4.7. The patient had reported that he has been having intermittent rectal bleeding and pressure with bowel movements for the past 5-6 months. He is status post EGD and colonoscopy, the EGD showed mild gastritis and the colonoscopy showed a non-obstructing rectal mass, it was biopsied with tattoos placed distal and proximal to the mass. Surgery was consulted and has seen patient. CT abdomen and pelvis results reported marked rectosigmoid sigmoid colon wall thickening compatible with malignancy. There is pelvic, retroperitoneal and intra-abdominal extensive lymphadenopathy compatible with metastasis. Numerous large intrahepatic lesions with the largest measuring 10 cm compatible with metastasis. All lobes and segments appear to be involved. Numerous bilateral pulmonary nodules compatible with metastasis. The patient states Dr. Ornelas had seen him this morning, a liver biopsy was ordered. The patient denies any rectal bleeding, black or tarry stools. States he's had 2 bowel movements that have been normal brown color. He denies any abdominal pain, nausea, or vomiting. He is been tolerating a regular diet. The biopsy results from his EGD and colonoscopy resulted. The duodenal biopsy shows benign enteric mucosa with intact villous architecture, gastric antrum biopsy shows chronic gastritis, gastroesophageal junction biopsy showed benign Squamous mucosa. The rectal mass biopsies show ulcerated moderately differentiated infiltrating adenocarcinoma. Objective - Vital Signs Vital signs: Vital Signs Temp 98 F 02/15/20 07:52 Pulse 71 02/15/20 08:45 Resp 16 02/15/20 08:45 BP 113/56 02/15/20 07:52 Pulse Ox 96 02/15/20 07:52 Intake & Output 02/14/20 02/15/20 02/15/20 18:59 06:59 18:59 Intake Total 1040 240 Balance 1040 240 Weight 101 kg Intake: Intake, IV Titration 100 Amount Piperacillin-Tazobactam 3 100 .375 gm In Sodium Chloride 0.9% 100 ml @ 25 mls/hr IVPB Q8H [facility] Rx#: [id number] Oral 940 240 Other: Voiding Method Toilet Toilet # Voids 2 1 - Exam General appearance: The patient is alert, oriented, in no acute distress. HET: Head is normocephalic and atraumatic. Conjunctiva pink. Sclerae anicteric. Neck: Supple without lymphadenopathy. Trachea midline. Abdomen: Soft, nontender, nondistended with bowel sounds. Extremities: Normal skin color and turgor. Neurological: No focal deficits. Alert and oriented 3. - Labs CBC & Chem 7: 02/15/20 07:20 02/15/20 07:20 Labs: Abnormal Lab Results - Last 24 Hours (Table) 02/15/20 02/15/20 Range/Units 07:20 07:20 WBC 11.5 H (3.8-10.6) k/uL RBC 3.91 L (4.30-5.90) m/uL Hgb 7.1 L (13.0-17.5) gm/dL Hct 25.5 L (39.0-53.0) % MCV 65.1 L (80.0-100.0) fL MCH 18.1 L (25.0-35.0) pg MCHC 27.9 L (31.0-37.0) g/dL RDW 25.0 H (11.5-15.5) % Plt Count 484 H (150-450) k/uL Neutrophils # 9.5 H (1.3-7.7) k/uL Lymphocytes # 0.9 L (1.0-4.8) k/uL Sodium 135 L (137-145) mmol/L Glucose 103 H (74-99) mg/dL Calcium 8.2 L (8.4-10.2) mg/dL AST 87 H (17-59) U/L Alkaline Phosphatase 134 H (38-126) U/L Total Protein 6.1 L (6.3-8.2) g/dL Albumin 3.1 L (3.5-5.0) g/dL Microbiology - Last 24 Hours (Table) 02/14/20 17:47 Stool Culture - Preliminary Stool 02/13/20 13:16 Blood Culture - Preliminary Blood No Growth after 24 hours Assessment and Plan Assessment: 1. Severe symptomatic microcytic hypochromic anemia consistent with iron deficiency anemia. Status post 2 units of PRBC 2. Rectal mass biopsy shows ulcerated moderately differentiated infiltrating adenocarcinoma 3. Atrial fibrillation on Coumadin, currently on hold 3. History of hypertension Plan: 1. Agree with PRBC transfusion 2. EGD/colonoscopy completed. EGD findings include mild gastritis, colonoscopy findings included a nonobstructing a rectal mass which was biopsied with tattoos placed distal and proximal to the mass. 3. Monitor CBC daily 4. Consult surgery 5. CT of chest abdomen and pelvis with contrast ordered and reviewed, likely metastatic 6. Agree with oncology consult while inpatient 7. Follow-up on biopsy results from colonoscopy 8. Liver biopsy ordered per oncology Thank you for allowing us to participate in the care of the patient, we will sign off at this time. The impression and plan of care has been dictated as directed. I performed a history and examination of this patient, discussed the same with the dictator. I agree with the dictator's note ,documented as a scribe. Any additional findings or plans will be noted.
[2020-02-15] MEDS: SODIUM FERRIC GLUCONAT-SUCROSE 125 MG in SODIUM CHLORIDE 0.9% 100 ML IVPB SCH (12:09)
--- NOTE | 2020-02-15 12:42 | P.PN ---
Subjective Progress Note Date: 02/15/20 Principal diagnosis: Rectal cancer Patient seen with his present. Tolerating diet. No pain. Minimal bleeding rectally. Was seen by oncology. Liver biopsy has been ordered. Plans are underway for palliative chemotherapy to begin next week. They are requesting a Port-A-Cath at this time. Objective - Vital Signs Vital signs: Vital Signs Temp 98.5 F 02/15/20 12:19 Pulse 66 02/15/20 12:19 Resp 16 02/15/20 12:19 BP 113/61 02/15/20 12:19 Pulse Ox 100 02/15/20 12:19 Intake & Output 02/14/20 02/15/20 02/15/20 18:59 06:59 18:59 Intake Total 1040 240 Balance 1040 240 Weight 101 kg Intake: Intake, IV Titration 100 Amount Piperacillin-Tazobactam 3 100 .375 gm In Sodium Chloride 0.9% 100 ml @ 25 mls/hr IVPB Q8H [facility] Rx#: [id number] Oral 940 240 Other: Voiding Method Toilet Toilet # Voids 2 1 - Exam Abdomen: Soft, nontender, nondistended - Labs CBC & Chem 7: 02/15/20 07:20 02/15/20 07:20 Labs: Abnormal Lab Results - Last 24 Hours (Table) 02/14/20 02/15/20 02/15/20 Range/Units 17:47 07:20 07:20 WBC 11.5 H (3.8-10.6) k/uL RBC 3.91 L (4.30-5.90) m/uL Hgb 7.1 L (13.0-17.5) gm/dL Hct 25.5 L (39.0-53.0) % MCV 65.1 L (80.0-100.0) fL MCH 18.1 L (25.0-35.0) pg MCHC 27.9 L (31.0-37.0) g/dL RDW 25.0 H (11.5-15.5) % Plt Count 484 H (150-450) k/uL Neutrophils # 9.5 H (1.3-7.7) k/uL Lymphocytes # 0.9 L (1.0-4.8) k/uL Sodium (137-145) mmol/L Glucose (74-99) mg/dL Calcium (8.4-10.2) mg/dL AST (17-59) U/L Alkaline Phosphatase (38-126) U/L Total Protein (6.3-8.2) g/dL Albumin (3.5-5.0) g/dL Procalcitonin 1.57 H (0.02-0.09) ng/mL Stool Lactoferrin POSITIVE H (NEGATIVE) 02/15/20 Range/Units 07:20 WBC (3.8-10.6) k/uL RBC (4.30-5.90) m/uL Hgb (13.0-17.5) gm/dL Hct (39.0-53.0) % MCV (80.0-100.0) fL MCH (25.0-35.0) pg MCHC (31.0-37.0) g/dL RDW (11.5-15.5) % Plt Count (150-450) k/uL Neutrophils # (1.3-7.7) k/uL Lymphocytes # (1.0-4.8) k/uL Sodium 135 L (137-145) mmol/L Glucose 103 H (74-99) mg/dL Calcium 8.2 L (8.4-10.2) mg/dL AST 87 H (17-59) U/L Alkaline Phosphatase 134 H (38-126) U/L Total Protein 6.1 L (6.3-8.2) g/dL Albumin 3.1 L (3.5-5.0) g/dL Procalcitonin (0.02-0.09) ng/mL Stool Lactoferrin (NEGATIVE) Microbiology - Last 24 Hours (Table) 02/14/20 17:47 Stool Culture - Preliminary Stool 02/13/20 13:16 Blood Culture - Preliminary Blood No Growth after 24 hours Assessment and Plan (1) Rectal mass Narrative/Plan: 55-year-old male with suspected metastatic rectal carcinoma. Clinical scenario again reviewed with the patient with his present. Will tentatively plan Port-A-Cath placement either tomorrow or Wednesday. Continue hold anticoagulation. Await findings of liver biopsy. Current Visit: Yes Status: Acute Code(s): K62.89 - OTHER SPECIFIED DISEASES OF ANUS AND RECTUM SNOMED Code(s): 391306510
--- NOTE | 2020-02-15 12:53 | P.CONS ---
History of Present Illness - Reason for Consult Consult date: 02/15/20 rectal cancer Requesting physician: Christine Meeks - Chief Complaint Weakness, anemia - History of Present Illness Mr. Mandujano is a very pleasant 55-year-old male we've asked to see in regards to her newly diagnosed rectal cancer. Patient states about 8 months of noting some rectal blood, associated more with hemorrhoids as it was bright red. Patient has lost 40 pounds over the last 10 months, was felt to be due to change in his diet. He noted mild constipation with diarrhea fluctuating which was different for him, he had no other bleeding. She was directed to the emergency department with low hemoglobin, he was severely anemic with microcytic hyperchromic anemia noted. On 02/11 he had colonoscopy with findings of a rectal mass, pathology revealed moderately differentiated adenocarcinoma. 02/12 he had a staging CT of the chest abdomen pelvis showing liver lesions, shotty mediastinal adenopathy as well as pulmonary nodules. No acute physical c/o, he is able to pass stool. Review of Systems 14 point review of systems is negative except as stated in HPI Past Medical History Past Medical History: Atrial Fibrillation, Cancer, Hypertension Additional Past Medical History / Comment(s): SEE DR CROSS H&P History of Any Multi-Drug Resistant Organisms: None Reported Past Surgical History: Cardiac Ablation, Tonsillectomy Additional Past Surgical History / Comment(s): CARDIOVERSION Past Anesthesia/Blood Transfusion Reactions: No Reported Reaction Past Psychological History: No Psychological Hx Reported Smoking Status: Former smoker Past Alcohol Use History: Occasional Past Drug Use History: None Reported Medications and Allergies Home Medications Medication Instructions Recorded Confirmed Type Aspirin 81 mg PO DAILY 04/11/14 02/10/20 History Atorvastatin [Lipitor] 80 mg PO DAILY 04/11/14 02/10/20 History Metoprolol Succinate 200 mg PO DAILY 08/09/18 02/10/20 History lisinopriL 20 mg PO DAILY #0 02/12/20 02/10/20 Rx Allergies Allergy/AdvReac Type Severity Reaction Status Date / Time No Known Allergies Allergy Verified 02/10/20 22:28 Physical Exam Vitals: Vital Signs Temp Pulse Resp BP Pulse Ox 02/15/20 07:52 98 F 71 16 113/56 96 02/15/20 04:00 99.9 F H 60 16 112/60 95 02/15/20 00:00 99.2 F 64 16 109/63 96 02/14/20 20:00 99.7 F H 53 L 18 112/61 96 02/14/20 15:45 99.9 F H 66 16 129/58 98 02/14/20 14:04 99.8 F H 02/14/20 11:30 72 16 109/63 99 02/14/20 09:20 99.6 F 72 16 111/63 95 Intake and Output 02/14/20 02/15/20 02/15/20 22:59 06:59 14:59 Intake Total 240 240 Balance 240 240 Intake: Oral 240 240 Other: Voiding Method Toilet # Voids 1 1 Weight 101 kg - Constitutional General appearance: cooperative, no acute distress, obese - EENT Eyes: anicteric sclerae, EOMI ENT: hearing grossly normal, normal oropharynx - Neck Neck: no lymphadenopathy - Respiratory Respiratory: bilateral: CTA - Cardiovascular Rhythm: regular Heart sounds: normal: S1, S2 Abnormal Heart Sounds: no systolic murmur, no diastolic murmur, no rub, no S3 Gallop, no S4 Gallop, no click, no other leg Peripheral Edema: bilateral: None - Gastrointestinal General gastrointestinal: no absent bowel sounds, no decreased bowel sounds, no distended, no hepatomegaly, no hyperactive bowel sounds, normal bowel sounds, no organomegaly, no rigid, no scaphoid, soft, no splenomegaly, no tenderness, no umbilical hernia, no ventral hernia - Integumentary Integumentary: pale - Musculoskeletal Musculoskeletal: strength equal bilaterally - Psychiatric Psychiatric: A&O x's 3, appropriate affect, intact judgment & insight Results CBC & Chem 7: 02/15/20 07:20 02/15/20 07:20 Labs: Abnormal Lab Results - Last 24 Hours (Table) 02/15/20 02/15/20 Range/Units 07:20 07:20 WBC 11.5 H (3.8-10.6) k/uL RBC 3.91 L (4.30-5.90) m/uL Hgb 7.1 L (13.0-17.5) gm/dL Hct 25.5 L (39.0-53.0) % MCV 65.1 L (80.0-100.0) fL MCH 18.1 L (25.0-35.0) pg MCHC 27.9 L (31.0-37.0) g/dL RDW 25.0 H (11.5-15.5) % Plt Count 484 H (150-450) k/uL Neutrophils # 9.5 H (1.3-7.7) k/uL Lymphocytes # 0.9 L (1.0-4.8) k/uL Sodium 135 L (137-145) mmol/L Glucose 103 H (74-99) mg/dL Calcium 8.2 L (8.4-10.2) mg/dL AST 87 H (17-59) U/L Alkaline Phosphatase 134 H (38-126) U/L Total Protein 6.1 L (6.3-8.2) g/dL Albumin 3.1 L (3.5-5.0) g/dL Microbiology - Last 24 Hours (Table) 02/14/20 17:47 Stool Culture - Preliminary Stool 02/13/20 13:16 Blood Culture - Preliminary Blood No Growth after 24 hours Comments: Pathology reports reviewed CT scan - abdomen: report reviewed CT scan - chest: report reviewed CT scan - pelvis: report reviewed Assessment and Plan (1) Rectal adenocarcinoma Narrative/Plan: Case was discussed with Surgery PA. Have requested a port placement. Case discussed with litigation examiner. Dr. Ornelas would like a biopsy of the liver as patient has a history of smoking. Intent is to confirm that there are not 2 primaries. Patient recently had antiplatelet therapy, plan is for reevaluation of the patient for possible biopsy tomorrow. We'll request biomarkers on pathology specimen. Current Visit: Yes Status: Acute Priority: High Code(s): C20 - MALIGNANT NEOPLASM OF RECTUM SNOMED Code(s): 192952887 (2) Microcytic hypochromic anemia Narrative/Plan: Parenteral iron ordered. Current Visit: Yes Status: Acute Priority: High Code(s): D50.9 - IRON DEFICIENCY ANEMIA, UNSPECIFIED SNOMED Code(s): 60039736 Plan: Dr. Ornelas discussed with pt and , diagnosis, prognosis, treatment intent. All questions answered to pt and satisfaction. Attests: I have seen pt, performed H&P, developped impression and plan of care. Discussed with dictator, documented as a scribe
[2020-02-15] MEDS ORDERED: LOPERAMIDE 2 MG CAP PO PRN (13:35)
[2020-02-15] MEDS: SODIUM CHLORIDE 0.9% 1,000 ML IV SCH ×2 (15:49→22:04)
[2020-02-15] MEDS: PANTOPRAZOLE 40 MG TABLET PO SCH (18:00)
[2020-02-16] MEDS: PIPERACILLIN-TAZOBACTAM 3.375 GM in SODIUM CHLORIDE 0.9% 100 ML IVPB SCH ×3 (05:47→21:06)
[2020-02-16] MEDS: PANTOPRAZOLE 40 MG TABLET PO SCH ×2 (05:59→17:05)
[2020-02-16 06:02] LABS: Anisocytosis Marked; Basophils % (A) 0 %; Eosinophils # (A) 0.3 k/uL (0-0.7); Eosinophils % (A) 3 %; HCT 23.6 % (39.0-53.0); Hypochromasia Marked; Lymphocytes # (A) 1.1 k/uL (1.0-4.8); Lymphocytes % (A) 11 %; MCH 19.4 pg (25.0-35.0); MCHC 29.2 g/dL (31.0-37.0); MCV 66.5 fL (80.0-100.0); Mean Platelet Volume 6.7; Microcytosis Marked; Monocytes # (A) 0.9 k/uL (0-1.0); Monocytes % (A) 9 %; Neutrophils # (A) 7.4 k/uL (1.3-7.7); Neutrophils % (A) 75 %; Platelet Count 501 k/uL (150-450); Poikilocytosis Moderate; RBC 3.56 m/uL (4.30-5.90); RDW 24.1 % (11.5-15.5); WBC 9.9 k/uL (3.8-10.6)
[2020-02-16 06:13] LABS: INR 1.1 (<1.2); Prothrombin Time 11.6 sec (9.0-12.0)
[2020-02-16 06:15] LABS: African American GFR (CKD) >90 (>60 ml/min/1.73 sqM); Anion Gap 5 mmol/L; Blood Urea Nitrogen 16 mg/dL (9-20); Carbon Dioxide 29 mmol/L (22-30); Chloride 104 mmol/L (98-107); Glucose 107 mg/dL (74-99); HGB 6.9 gm/dL (13.0-17.5); Non-African American GFR(CKD) >90 (>60 ml/min/1.73 sqM); Potassium 4.4 mmol/L (3.5-5.1); Sodium 138 mmol/L (137-145)
[2020-02-16] MEDS: SODIUM FERRIC GLUCONAT-SUCROSE 125 MG in SODIUM CHLORIDE 0.9% 100 ML IVPB SCH (08:50)
--- NOTE | 2020-02-16 10:19 | P.PN ---
Subjective was admitted for on and off rectal bleed. Patient had underwent colonoscopy today which showed a friable rectal asked, general surgery is being consulted anti-dilation will be held. Although in future if needed patient the is approved for [employer]. Patient will not need Coumadin down the line. Patient although didn't have any rectal bleed today or since admission. Hemoglobin remained stable and presently able 7. 02/13/2020 Patient is off anticoagulation. The surgery will evaluate the patient andovernightevents. No more clinical GI bleed. Constitutional: Denied any fatigue denied any fever. Cardio vascular: denied any chest pain, palpitations Gastrointestinal denied any nausea vomiting Pulmonary: Denied any shortness of breath cough Neurologic denied any new focal deficits Subjective 02/14/2020, this is the first in taking care of the patient Patient is awake and alert, sitting in chair fully oriented and not in distress. He is aware of his diagnosis of rectal mass which is highly suspicious for cancer as he told me by himself. He confirms that he was taking Coumadin at home for A. fib which is on hold for now. He denies chest pain or dyspnea. No nausea vomiting. No abdominal pain however he has some loose bowel movement with some chunks in it. He had low- grade fever 101.2. Most likely source is proctitis related to his rectal mass, we will start the patient on Zosyn. C. diff is negative. 02/15/2020 Patient is awake and alert, he has good strength, no abdominal pain or vomiting however he still have some loose bowel movement. No blood in stool. Patient conference to me he was taking Coumadin prior to coming to the hospital for A. fib however it is on hold now, oncology team are recommending liver biopsy so we will not start anticoagulation now. CEA is elevated 1078 Patient still have low-grade fever 99.9 and white cell counts, down to 11 K, continue with Zosyn for now. C. diff is negative. Stool culture are pending. Colonic biopsy showing moderately differentiated adenocarcinoma. With evidence of liver and pulmonary metastases and intra-abdominal lymphadenopathy per CAT scan of the abdomen and pelvis 02/16/2020 Patient is awake and alert, no new complaints, no abdominal pain or chest pain or dyspnea. No bowel movement today. He has little loose stool yesterday. Distal has low-grade fever 100.2 yesterday, no more fever so far today. His leukocytosis is back to normal at 9.9. However his hemoglobin is trending down to 6.9, patient will need one unit of blood transfusion and I discussed with him with the risks and he verbalized understanding and acceptance for the [facility] sfusion. Anticoagulation is still on hold for now for his GI bleed. Oncology team recommended liver biopsy to rule out 2 primaries. So far patient has diagnosed with moderately differentiated rectal adenocarcinoma. Discussed the plan with the patient and he agrees. Objective - Vital Signs Vital signs: Vital Signs Temp 98.7 F 02/16/20 10:11 Pulse 60 02/16/20 10:11 Resp 16 02/16/20 10:11 BP 119/62 02/16/20 10:11 Pulse Ox 98 02/16/20 10:11 Intake & Output 02/15/20 02/16/20 02/16/20 18:59 06:59 18:59 Intake Total 1880 0 Output Total 600 Balance 1880 -600 0 Weight 101.4 kg Intake: Intake, IV Titration 600 Amount Piperacillin-Tazobactam 3 100 .375 gm In Sodium Chloride 0.9% 100 ml @ 25 mls/hr IVPB Q8H [facility] Rx#: [id number] Sodium Chloride 0.9% 1, 400 000 ml @ 50 mls/hr IV . Q20H [facility] Rx#:[id number] Sodium Ferric Gluconat- 100 Sucrose 125 mg In Sodium Chloride 0.9% 100 ml @ 100 mls/hr IVPB DAILY [facility] Rx#:[id number] Oral 1280 Blood Product 0 Rc As-1 Unit 0 [id number] Output: Urine 600 Other: Voiding Method Toilet Toilet Toilet # Voids 2 - Labs CBC & Chem 7: 02/16/20 05:51 02/16/20 05:51 Labs: Abnormal Lab Results - Last 24 Hours (Table) 02/14/20 02/15/20 02/16/20 Range/Units 17:47 07:20 05:51 RBC 3.56 L (4.30-5.90) m/uL Hgb 6.9 L* (13.0-17.5) gm/dL Hct 23.6 L (39.0-53.0) % MCV 66.5 L (80.0-100.0) fL MCH 19.4 L (25.0-35.0) pg MCHC 29.2 L (31.0-37.0) g/dL RDW 24.1 H (11.5-15.5) % Plt Count 501 H (150-450) k/uL Glucose (74-99) mg/dL Calcium (8.4-10.2) mg/dL Procalcitonin 1.57 H (0.02-0.09) ng/mL Stool Lactoferrin POSITIVE H (NEGATIVE) Crossmatch 02/16/20 02/16/20 Range/Units 05:51 07:31 RBC (4.30-5.90) m/uL Hgb (13.0-17.5) gm/dL Hct (39.0-53.0) % MCV (80.0-100.0) fL MCH (25.0-35.0) pg MCHC (31.0-37.0) g/dL RDW (11.5-15.5) % Plt Count (150-450) k/uL Glucose 107 H (74-99) mg/dL Calcium 8.0 L (8.4-10.2) mg/dL Procalcitonin (0.02-0.09) ng/mL Stool Lactoferrin (NEGATIVE) Crossmatch See Detail Microbiology - Last 24 Hours (Table) 02/13/20 13:16 Blood Culture - Preliminary Blood No Growth after 48 hours Assessment and Plan Assessment: -Rectal adenocarcinoma, 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 Oncology team on the case. Liver biopsy is recommended -Possible proctitis related to his rectal mass, associated with sepsis with fever and leukocytosis. start Zosyn. Send stool for C. diff and stool culture sensitivity. -severe anemia with acute and chronic lower GI bleed: hemoglobin is stable patient has a friable rectal mass anticoagulation will be held, general surgery consultation as mentioned above -Liver metastasis, rule out another primary tumor with liver biopsy. -Acute renal failure on chronic kidney disease stage II improved with the IV fluids and blood transfusion -atrial fibrillation probably paroxysmal presently rate controlled -Hypertension because of episodes of this year bleed will monitor the blood pressure without anyantihypertensivemedications. DVT prophylaxis: No anticoagulation and review of his GI bleed GI prophylaxis, Ppi Prognosis is guarded
[2020-02-16 12:07] VITALS: BMI 31.1
[2020-02-16] MEDS: METOPROLOL SUCCINATE (ER) 100 MG TAB.ER.24H PO SCH (12:52)
[2020-02-16] MEDS: polyethylene glycoL 3350 17 GM POWD.PACK PO SCH (12:53)
[2020-02-16] MEDS: ATORVASTATIN 80 MG TAB PO SCH (12:54)
[2020-02-16] MEDS ORDERED: IV FLUID CONTINUATION 1,000 ML IV ONE (13:23)
[2020-02-16] MEDS ORDERED: SODIUM CHLORIDE 0.9% 1,000 ML IV ONE (13:52)
--- NOTE | 2020-02-16 15:36 | P.PN ---
Subjective Progress Note Date: 02/16/20 Principal diagnosis: Rectal cancer Patient was brought down to preop. Blood was transfused for hemoglobin below 7. Patient's Port-A-Cath was unfortunately postponed given the back up in the operating room. He is going to be rescheduled for tomorrow morning. No new complaints. Objective - Vital Signs Vital signs: Vital Signs Temp 99.4 F 02/16/20 15:09 Pulse 63 02/16/20 15:09 Resp 18 02/16/20 15:09 BP 128/81 02/16/20 15:09 Pulse Ox 97 02/16/20 15:09 Intake & Output 02/15/20 02/16/20 02/16/20 18:59 06:59 18:59 Intake Total 1880 410 Output Total 600 Balance 1880 -600 410 Weight 101.4 kg 101.4 kg Intake: IV 100 Intake, IV Titration 600 Amount Piperacillin-Tazobactam 3 100 .375 gm In Sodium Chloride 0.9% 100 ml @ 25 mls/hr IVPB Q8H [facility] Rx#: [id number] Sodium Chloride 0.9% 1, 400 000 ml @ 50 mls/hr IV . Q20H [facility] Rx#:[id number] Sodium Ferric Gluconat- 100 Sucrose 125 mg In Sodium Chloride 0.9% 100 ml @ 100 mls/hr IVPB DAILY [facility] Rx#:[id number] Oral 1280 0 Blood Product 310 Rc As-1 Unit 310 [id number] Output: Urine 600 Other: Voiding Method Toilet Toilet Toilet # Voids 2 1 - Exam Abdomen: Soft, nontender, nondistended - Labs CBC & Chem 7: 02/16/20 05:51 02/16/20 05:51 Labs: Abnormal Lab Results - Last 24 Hours (Table) 02/16/20 02/16/20 02/16/20 Range/Units 05:51 05:51 05:51 RBC 3.56 L (4.30-5.90) m/uL Hgb 6.9 L* (13.0-17.5) gm/dL Hct 23.6 L (39.0-53.0) % MCV 66.5 L (80.0-100.0) fL MCH 19.4 L (25.0-35.0) pg MCHC 29.2 L (31.0-37.0) g/dL RDW 24.1 H (11.5-15.5) % Plt Count 501 H (150-450) k/uL Retic Count 4.0 H (0.5-2.0) % Glucose 107 H (74-99) mg/dL Calcium 8.0 L (8.4-10.2) mg/dL Lactate Dehydrogenase (313-618) U/L Crossmatch 02/16/20 02/16/20 Range/Units 05:51 07:31 RBC (4.30-5.90) m/uL Hgb (13.0-17.5) gm/dL Hct (39.0-53.0) % MCV (80.0-100.0) fL MCH (25.0-35.0) pg MCHC (31.0-37.0) g/dL RDW (11.5-15.5) % Plt Count (150-450) k/uL Retic Count (0.5-2.0) % Glucose (74-99) mg/dL Calcium (8.4-10.2) mg/dL Lactate Dehydrogenase 3360 H (313-618) U/L Crossmatch See Detail Microbiology - Last 24 Hours (Table) 02/13/20 13:16 Blood Culture - Preliminary Blood No Growth after 72 hours Assessment and Plan (1) Rectal mass Narrative/Plan: Will proceed with Port-A-Cath placement tomorrow morning. Recheck labs tomorrow. Current Visit: Yes Status: Acute Code(s): K62.89 - OTHER SPECIFIED DISEASES OF ANUS AND RECTUM SNOMED Code(s): 305588085
--- NOTE | 2020-02-16 18:48 | P.PN ---
Subjective Progress Note Date: 02/16/20 Principal diagnosis: Anemia and new malignancy Plan for Port today, we would like liver biopsy although per IR unable to obtain while inpatient. He is ok for discharge from our stand point and we will set up for biopsy as out patient next week Objective - Vital Signs Vital signs: Vital Signs Temp 99.4 F 02/16/20 15:09 Pulse 63 02/16/20 16:39 Resp 16 02/16/20 16:39 BP 128/81 02/16/20 15:09 Pulse Ox 97 02/16/20 15:09 Intake & Output 02/15/20 02/16/20 02/16/20 18:59 06:59 18:59 Intake Total 1880 410 Output Total 600 Balance 1880 -600 410 Weight 101.4 kg 101.4 kg Intake: IV 100 Intake, IV Titration 600 Amount Piperacillin-Tazobactam 3 100 .375 gm In Sodium Chloride 0.9% 100 ml @ 25 mls/hr IVPB Q8H [facility] Rx#: [id number] Sodium Chloride 0.9% 1, 400 000 ml @ 50 mls/hr IV . Q20H [facility] Rx#:[id number] Sodium Ferric Gluconat- 100 Sucrose 125 mg In Sodium Chloride 0.9% 100 ml @ 100 mls/hr IVPB DAILY [facility] Rx#:[id number] Oral 1280 0 Blood Product 310 Rc As-1 Unit 310 [id number] Output: Urine 600 Other: Voiding Method Toilet Toilet Toilet # Voids 2 1 - Exam - Constitutional General appearance: cooperative, no acute distress, obese - EENT Eyes: anicteric sclerae, EOMI ENT: hearing grossly normal, normal oropharynx - Neck Neck: no lymphadenopathy - Respiratory Respiratory: bilateral: CTA - Cardiovascular Rhythm: regular Heart sounds: normal: S1, S2 Abnormal Heart Sounds: no systolic murmur, no diastolic murmur, no rub, no S3 Gallop, no S4 Gallop, no click, no other leg Peripheral Edema: bilateral: None - Gastrointestinal General gastrointestinal: no absent bowel sounds, no decreased bowel sounds, no distended, no hepatomegaly, no hyperactive bowel sounds, normal bowel sounds, no organomegaly, no rigid, no scaphoid, soft, no splenomegaly, no tenderness, no umbilical hernia, no ventral hernia - Integumentary Integumentary: pale - Musculoskeletal Musculoskeletal: strength equal bilaterally - Psychiatric - Labs CBC & Chem 7: 02/16/20 05:51 02/16/20 05:51 Labs: Abnormal Lab Results - Last 24 Hours (Table) 02/16/20 02/16/20 02/16/20 Range/Units 05:51 05:51 05:51 RBC 3.56 L (4.30-5.90) m/uL Hgb 6.9 L* (13.0-17.5) gm/dL Hct 23.6 L (39.0-53.0) % MCV 66.5 L (80.0-100.0) fL MCH 19.4 L (25.0-35.0) pg MCHC 29.2 L (31.0-37.0) g/dL RDW 24.1 H (11.5-15.5) % Plt Count 501 H (150-450) k/uL Retic Count 4.0 H (0.5-2.0) % Glucose 107 H (74-99) mg/dL Calcium 8.0 L (8.4-10.2) mg/dL Lactate Dehydrogenase (313-618) U/L Crossmatch 02/16/20 02/16/20 Range/Units 05:51 07:31 RBC (4.30-5.90) m/uL Hgb (13.0-17.5) gm/dL Hct (39.0-53.0) % MCV (80.0-100.0) fL MCH (25.0-35.0) pg MCHC (31.0-37.0) g/dL RDW (11.5-15.5) % Plt Count (150-450) k/uL Retic Count (0.5-2.0) % Glucose (74-99) mg/dL Calcium (8.4-10.2) mg/dL Lactate Dehydrogenase 3360 H (313-618) U/L Crossmatch See Detail Microbiology - Last 24 Hours (Table) 02/13/20 13:16 Blood Culture - Preliminary Blood No Growth after 72 hours Assessment and Plan Plan: Comments: Pathology reports reviewed CT scan - abdomen: report reviewed CT scan - chest: report reviewed CT scan - pelvis: report reviewed Assessment and Plan New Diagnosis Rectal adenocarcinoma - Port Placement today - Biopsy of liver will be scheduled outpatient next week to ensure there are not two separate primary cancers - NGS for biomarker testing will be requested on tissue biopsy (2) Microcytic hypochromic anemia - Secondary to malignancy and blood loss - Iron deficiency component - Status POst Parental Iron Plan: - Unable to have biopsy on liver performed inpatient will set up next week as outpatient - Ok to discharge from oncology standpoint - Discussed with primary team Attests: I have seen pt, performed H&P, developped impression and plan of care. Discussed with dictator, documented as a scribe
[2020-02-16 19:31] LABS: % Iron Saturation 3.66 (15.00-50.00); Ferritin 118.9 ng/mL (22.0-322.0)
[2020-02-17] MEDS: PIPERACILLIN-TAZOBACTAM 3.375 GM in SODIUM CHLORIDE 0.9% 100 ML IVPB SCH ×3 (05:47→21:40)
[2020-02-17] MEDS: SODIUM CHLORIDE 0.9% 1,000 ML IV SCH (06:25)
[2020-02-17] MEDS: PANTOPRAZOLE 40 MG TABLET PO SCH ×2 (06:25→17:12)
[2020-02-17 07:20] LABS: Anisocytosis Marked; Basophils # (A) 0.1 k/uL (0-0.2); Basophils % (A) 1 %; Eosinophils # (A) 0.2 k/uL (0-0.7); Eosinophils % (A) 2 %; HCT 24.4 % (39.0-53.0); HGB 7.2 gm/dL (13.0-17.5); Hypochromasia Marked; Lymphocytes % (A) 12 %; MCH 19.2 pg (25.0-35.0); MCHC 29.3 g/dL (31.0-37.0); MCV 65.6 fL (80.0-100.0); Mean Platelet Volume 6.9; Microcytosis Marked; Monocytes # (A) 0.8 k/uL (0-1.0); Monocytes % (A) 10 %; Neutrophils # (A) 5.8 k/uL (1.3-7.7); Neutrophils % (A) 72 %; Platelet Count 461 k/uL (150-450); Poikilocytosis Moderate; RBC 3.73 m/uL (4.30-5.90); RDW 25.2 % (11.5-15.5); WBC 8.1 k/uL (3.8-10.6)
[2020-02-17 07:27] LABS: African American GFR (CKD) >90 (>60 ml/min/1.73 sqM); Anion Gap 4 mmol/L; Blood Urea Nitrogen 15 mg/dL (9-20); Carbon Dioxide 28 mmol/L (22-30); Chloride 103 mmol/L (98-107); Glucose 101 mg/dL (74-99); Non-African American GFR(CKD) >90 (>60 ml/min/1.73 sqM); Potassium 4.5 mmol/L (3.5-5.1); Sodium 135 mmol/L (137-145)
[2020-02-17 07:53] LABS: Target Cells Present
[2020-02-17] MEDS: METOPROLOL SUCCINATE (ER) 100 MG TAB.ER.24H PO SCH (09:02)
[2020-02-17] MEDS: ATORVASTATIN 80 MG TAB PO SCH (09:02)
[2020-02-17] MEDS: polyethylene glycoL 3350 17 GM POWD.PACK PO SCH (09:03)
[2020-02-17] MEDS: SODIUM FERRIC GLUCONAT-SUCROSE 125 MG in SODIUM CHLORIDE 0.9% 100 ML IVPB SCH (10:29)
[2020-02-17] MEDS ORDERED: PROPOFOL 10 MG/ML 20 ML VIAL IV ONE (11:14)
[2020-02-17] MEDS ORDERED: LIDOCAINE 1% INJ 10MG/ML (20 ML MDV) ONE (11:14)
[2020-02-17] MEDS ORDERED: MIDAZOLAM 2 MG/2 ML VIAL ONE (11:14)
[2020-02-17] MEDS ORDERED: fentaNYL (PF) 50 MCG/ML 2 ML AMP ONE (11:14)
[2020-02-17] MEDS ORDERED: SODIUM CHLORIDE 0.9% 1,000 ML IV ONE (11:18)
[2020-02-17] MEDS ORDERED: HEPARIN SODIUM,PORCINE 100 UNIT/ML 5 ML VIAL IV ONE (11:37)
[2020-02-17] MEDS ORDERED: LIDOCAINE (PF) 10 MG/ML 2 ML VIAL SQ ONE ×2 (11:38)
[2020-02-17] MEDS ORDERED: LACTATED RINGERS 1,000 ML IV ONE (11:54)
[2020-02-17] MEDS ORDERED: HYDROcodone/APAP 5-325MG 1 EACH TAB PO PRN (12:09)
--- NOTE | 2020-02-17 12:11 | P.OP ---
Date of Procedure: 02/17/20 Procedure(s) Performed: PREOPERATIVE DIAGNOSIS: Metastatic rectal carcinoma POSTOPERATIVE DIAGNOSIS: Same PROCEDURE: Port-A-Cath placement with fluoroscopic and ultrasound guidance SURGEON: Trina EBL: Minimal ANESTHESIA: Sedation COMPLICATIONS: None OPERATIVE PROCEDURE: Patient was brought and placed on the operative table in the supine position. The patient was sedated per anesthesia that time. The chest and neck were prepped and draped in usual sterile fashion. The ultrasound probe was used to identify the location of the right internal jugular vein. The skin was localized with lidocaine. The Seldinger needle was advanced into the IJ under ultrasound guidance. The wire was advanced through the needle under fluoroscopic guidance into the superior vena cava. A port pocket was created in the right infraclavicular location. The catheter was tunneled from the wire entrance site to the port pocket. The port was then connected to the catheter. The dilator introducer was threaded over the guidewire. The guidewire and dilator were then removed. The catheter was advanced through the introducer and introducer was then removed. The tip was seen to be in the right atrial junction via fluoroscopy. A picture of the radiograph showing the tip at the radial digital junction was taken. Port was flushed with both saline and a Hep- Lock solution. There was good flow both in and out of the port. The port was sutured in underlying tissues using 3-0 silk sutures. The subcutaneous tissues were reapproximated using 3-0 Vicryl sutures and the skin at both locations using 4-0 Monocryl sutures. Skin glue and sterile dressings then applied. DISPOSITION: Stable to recovery room
--- NOTE | 2020-02-17 12:22 | FL ---
EXAMINATION TYPE: FL guided central line placemt DATE OF EXAM: 02/17/2020 CLINICAL HISTORY: Rectal cancer. TECHNIQUE: Fluoroscopy. COMPARISON: CT 4 days ago. FINDINGS: Fluoroscopic guidance was provided during Mediport catheter insertion procedure performed by surgeon Dr. Mena. A total of 12 seconds of fluoroscopic time was utilized during the procedure a nd 3 spot intraoperative images are acquired. Images acquired show right internal jugular Mediport ca theter terminating near cavoatrial junction. IMPRESSION: As Above.
--- NOTE | 2020-02-17 12:36 | XR ---
EXAMINATION TYPE: XR chest 1V confirm line [facility] DATE OF EXAM: 02/17/2020 CLINICAL HISTORY: Port-A-Cath insertion TECHNIQUE: Single AP portable upright view of the chest is obtained. COMPARISON: Chest x-ray and CT from 4 days earlier FINDINGS: New right internal jugular Mediport catheter terminating in SVC. Background low lung volum es and chronic parenchymal changes without suspicious new focal airspace opacity, pleural effusion, o r pneumothorax noted bilaterally. Scattered small metastatic nodules noted seen better on recent CT. Persistent cardiomegaly. Osseous structures are intact. IMPRESSION: New Right internal jugular Mediport catheter terminating in SVC. No pneumothorax noted.
[2020-02-17] MEDS: CYANOCOBALAMIN 1,000 MCG/ML 1 ML VIAL IM SCH (21:32)
[2020-02-18] MEDS: SODIUM CHLORIDE 0.9% 1,000 ML IV SCH (03:52)
[2020-02-18] MEDS: PIPERACILLIN-TAZOBACTAM 3.375 GM in SODIUM CHLORIDE 0.9% 100 ML IVPB SCH ×3 (06:31→20:39)
[2020-02-18] MEDS: PANTOPRAZOLE 40 MG TABLET PO SCH ×2 (06:31→16:48)
[2020-02-18] MEDS: CYANOCOBALAMIN 1,000 MCG/ML 1 ML VIAL IM SCH (09:12)
[2020-02-18] MEDS: METOPROLOL SUCCINATE (ER) 100 MG TAB.ER.24H PO SCH (09:12)
[2020-02-18] MEDS: polyethylene glycoL 3350 17 GM POWD.PACK PO SCH (09:13)
[2020-02-18] MEDS: ATORVASTATIN 80 MG TAB PO SCH (09:16)
[2020-02-18] MEDS: SODIUM FERRIC GLUCONAT-SUCROSE 125 MG in SODIUM CHLORIDE 0.9% 100 ML IVPB SCH (10:05)
[2020-02-18 10:21] LABS: Anisocytosis Marked; Basophils % (A) 0 %; Eosinophils # (A) 0.2 k/uL (0-0.7); Eosinophils % (A) 2 %; HCT 26.1 % (39.0-53.0); HGB 7.5 gm/dL (13.0-17.5); Hypochromasia Marked; Lymphocytes % (A) 11 %; MCH 19.8 pg (25.0-35.0); MCHC 28.8 g/dL (31.0-37.0); MCV 68.8 fL (80.0-100.0); Mean Platelet Volume 7.1; Microcytosis Marked; Monocytes # (A) 0.9 k/uL (0-1.0); Monocytes % (A) 11 %; Neutrophils # (A) 6.5 k/uL (1.3-7.7); Neutrophils % (A) 74 %; Platelet Count 498 k/uL (150-450); Poikilocytosis Moderate; WBC 8.7 k/uL (3.8-10.6)
[2020-02-18 10:37] LABS: RDW 25.2 % (11.5-15.5)
--- NOTE | 2020-02-18 10:41 | P.PN ---
Subjective Progress Note Date: 02/18/20 Principal diagnosis: Rectal cancer Patient doing well today. Mild pain at Port-A-Cath site. T-max 99.5. Labs noted. No shortness of breath. Minimal rectal bleeding. Objective - Vital Signs Vital signs: Vital Signs Temp 99.2 F 02/18/20 09:11 Pulse 72 02/18/20 09:11 Resp 16 02/18/20 09:11 BP 119/68 02/18/20 09:11 Pulse Ox 96 02/18/20 09:11 Intake & Output 02/17/20 02/18/20 02/18/20 18:59 06:59 18:59 Intake Total 600 365 Output Total 710 Balance -110 365 Weight 104.3 kg Intake: IV 600 Oral 0 365 Output: Urine 700 Estimated Blood Loss 10 Other: Voiding Method Toilet Toilet Toilet # Voids 1 3 1 - Exam Chest incision clean and dry Abdomen: Soft, nontender, nondistended - Labs CBC & Chem 7: 02/18/20 09:04 02/17/20 06:54 Labs: Abnormal Lab Results - Last 24 Hours (Table) 02/17/20 02/18/20 Range/Units 06:54 09:04 RBC 3.80 L (4.30-5.90) m/uL Hgb 7.5 L (13.0-17.5) gm/dL Hct 26.1 L (39.0-53.0) % MCV 68.8 L (80.0-100.0) fL MCH 19.8 L (25.0-35.0) pg MCHC 28.8 L (31.0-37.0) g/dL RDW 25.2 H (11.5-15.5) % Plt Count 498 H (150-450) k/uL Procalcitonin 0.94 H (0.02-0.09) ng/mL Microbiology - Last 24 Hours (Table) 02/14/20 17:47 Stool Culture - Final Stool 02/13/20 13:16 Blood Culture - Preliminary Blood No Growth after 96 hours Assessment and Plan (1) Rectal mass Narrative/Plan: Patient doing well after Port-A-Cath placement. Possible liver biopsy or possible discharge tomorrow. Continue diet as tolerated. Monitor bowel function. Current Visit: Yes Status: Acute Code(s): K62.89 - OTHER SPECIFIED DISEASES OF ANUS AND RECTUM SNOMED Code(s): 840825459
--- NOTE | 2020-02-18 13:25 | P.PN ---
Subjective was admitted for on and off rectal bleed. Patient had underwent colonoscopy today which showed a friable rectal asked, general surgery is being consulted anti-dilation will be held. Although in future if needed patient the is approved for [employer]. Patient will not need Coumadin down the line. Patient although didn't have any rectal bleed today or since admission. Hemoglobin remained stable and presently able 7. 02/13/2020 Patient is off anticoagulation. The surgery will evaluate the patient andovernightevents. No more clinical GI bleed. Constitutional: Denied any fatigue denied any fever. Cardio vascular: denied any chest pain, palpitations Gastrointestinal denied any nausea vomiting Pulmonary: Denied any shortness of breath cough Neurologic denied any new focal deficits Subjective 02/14/2020, this is the first in taking care of the patient Patient is awake and alert, sitting in chair fully oriented and not in distress. He is aware of his diagnosis of rectal mass which is highly suspicious for cancer as he told me by himself. He confirms that he was taking Coumadin at home for A. fib which is on hold for now. He denies chest pain or dyspnea. No nausea vomiting. No abdominal pain however he has some loose bowel movement with some chunks in it. He had low- grade fever 101.2. Most likely source is proctitis related to his rectal mass, we will start the patient on Zosyn. C. diff is negative. 02/15/2020 Patient is awake and alert, he has good strength, no abdominal pain or vomiting however he still have some loose bowel movement. No blood in stool. Patient conference to me he was taking Coumadin prior to coming to the hospital for A. fib however it is on hold now, oncology team are recommending liver biopsy so we will not start anticoagulation now. CEA is elevated 1078 Patient still have low-grade fever 99.9 and white cell counts, down to 11 K, continue with Zosyn for now. C. diff is negative. Stool culture are pending. Colonic biopsy showing moderately differentiated adenocarcinoma. With evidence of liver and pulmonary metastases and intra-abdominal lymphadenopathy per CAT scan of the abdomen and pelvis 02/16/2020 Patient is awake and alert, no new complaints, no abdominal pain or chest pain or dyspnea. No bowel movement today. He has little loose stool yesterday. Distal has low-grade fever 100.2 yesterday, no more fever so far today. His leukocytosis is back to normal at 9.9. However his hemoglobin is trending down to 6.9, patient will need one unit of blood transfusion and I discussed with him with the risks and he verbalized understanding and acceptance for the [facility] sfusion. Anticoagulation is still on hold for now for his GI bleed. Oncology team recommended liver biopsy to rule out 2 primaries. So far patient has diagnosed with moderately differentiated rectal adenocarcinoma. Discussed the plan with the patient and he agrees. 02/17/2020 Patient is awake and alert. No new complaints. He still has fever 99.9. His WBC count is back to normal at 8.1K, is still on Zosyn. Stool culture was negative. If no improvement we'll consider infectious disease consult Liver biopsy is postponed to outpatient per oncology team input. Patient is going for Port-A-Cath placement today. His Coumadin is still on hold and he still on IV Protonix. Yesterday he got one unit of blood transfusion and his hemoglobin went up only from 6.9 to 7.2. 02/18/1938 patient is awake and alert. No specific complaints, no chest pain or dyspnea. No diarrhea or blood in stool. He had one bowel movement yesterday, no abdominal pain. And his vitals are stable. His hemoglobin is improved today to 7.5,he's been afebrile since yesterday, Port-A-Cath was placed yesterday Vitamin B12 is low at 179 and that is been replaced. Also we will add ferrous sulfate If he keeps improving possible discharge in 24-48 hours Objective - Vital Signs Vital signs: Vital Signs Temp 99.0 F 02/18/20 12:00 Pulse 62 02/18/20 12:00 Resp 16 02/18/20 12:00 BP 122/71 02/18/20 12:00 Pulse Ox 98 02/18/20 12:00 Intake & Output 02/17/20 02/18/20 02/18/20 18:59 06:59 18:59 Intake Total 600 365 Output Total 710 Balance -110 365 Weight 104.3 kg Intake: IV 600 Oral 0 365 Output: Urine 700 Estimated Blood Loss 10 Other: Voiding Method Toilet Toilet Toilet # Voids 1 3 1 - Exam GENERAL: The patient is alert and oriented x3, not in any acute distress. Well developed, well nourished. HEENT: Pupils are round and equally reacting to light. EOMI. No scleral icterus. No conjunctival pallor. Normocephalic, atraumatic. No pharyngeal erythema. No thyromegaly. CARDIOVASCULAR: S1 and S2 present. No murmurs, rubs, or gallops. PULMONARY: Chest is clear to auscultation, no wheezing or crackles. ABDOMEN: Soft, nontender, nondistended, normoactive bowel sounds. No palpable organomegaly. MUSCULOSKELETAL: No joint swelling or deformity. EXTREMITIES: No cyanosis, clubbing, or pedal edema. NEUROLOGICAL: Gross neurological examination did not reveal any focal deficits. SKIN: No rashes. no petechiae. - Labs CBC & Chem 7: 02/18/20 09:04 02/17/20 06:54 Labs: Abnormal Lab Results - Last 24 Hours (Table) 02/18/20 Range/Units 09:04 RBC 3.80 L (4.30-5.90) m/uL Hgb 7.5 L (13.0-17.5) gm/dL Hct 26.1 L (39.0-53.0) % MCV 68.8 L (80.0-100.0) fL MCH 19.8 L (25.0-35.0) pg MCHC 28.8 L (31.0-37.0) g/dL RDW 25.2 H (11.5-15.5) % Plt Count 498 H (150-450) k/uL Microbiology - Last 24 Hours (Table) 02/14/20 17:47 Stool Culture - Final Stool 02/13/20 13:16 Blood Culture - Preliminary Blood No Growth after 96 hours Assessment and Plan Assessment: -Rectal adenocarcinoma, 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 Oncology team on the case. Liver biopsy is recommended -Possible proctitis related to his rectal mass, associated with sepsis with f ever and leukocytosis. start Zosyn. Send stool for C. diff and stool culture sensitivity. -severe anemia with acute and chronic lower GI bleed: hemoglobin is stable patient has a friable rectal mass anticoagulation will be held, general surgery consultation as mentioned above -Liver metastasis, rule out another primary tumor with liver biopsy. -Acute renal failure on chronic kidney disease stage II improved with the IV fluids and blood transfusion -atrial fibrillation probably paroxysmal presently rate controlled -Hypertension because of episodes of this year bleed will monitor the blood p ressure without anyantihypertensivemedications. DVT prophylaxis: No anticoagulation and review of his GI bleed GI prophylaxis, Ppi Prognosis is guarded
[2020-02-18 13:37] LABS: Target Cells Present
[2020-02-18] MEDS: FERROUS SULFATE 325 MG TAB PO SCH ×2 (14:31→16:48)
[2020-02-19] MEDS: PIPERACILLIN-TAZOBACTAM 3.375 GM in SODIUM CHLORIDE 0.9% 100 ML IVPB SCH ×3 (04:07→21:50)
[2020-02-19] MEDS: PANTOPRAZOLE 40 MG TABLET PO SCH ×4 (05:44→17:56)
[2020-02-19] MEDS: FERROUS SULFATE 325 MG TAB PO SCH ×3 (05:44→17:55)
--- NOTE | 2020-02-19 08:38 | P.PN ---
Subjective was admitted for on and off rectal bleed. Patient had underwent colonoscopy today which showed a friable rectal asked, general surgery is being consulted anti-dilation will be held. Although in future if needed patient the is approved for [employer]. Patient will not need Coumadin down the line. Patient although didn't have any rectal bleed today or since admission. Hemoglobin remained stable and presently able 7. 02/13/2020 Patient is off anticoagulation. The surgery will evaluate the patient andovernightevents. No more clinical GI bleed. Constitutional: Denied any fatigue denied any fever. Cardio vascular: denied any chest pain, palpitations Gastrointestinal denied any nausea vomiting Pulmonary: Denied any shortness of breath cough Neurologic denied any new focal deficits Subjective 02/14/2020, this is the first in taking care of the patient Patient is awake and alert, sitting in chair fully oriented and not in distress. He is aware of his diagnosis of rectal mass which is highly suspicious for cancer as he told me by himself. He confirms that he was taking Coumadin at home for A. fib which is on hold for now. He denies chest pain or dyspnea. No nausea vomiting. No abdominal pain however he has some loose bowel movement with some chunks in it. He had low- grade fever 101.2. Most likely source is proctitis related to his rectal mass, we will start the patient on Zosyn. C. diff is negative. 02/15/2020 Patient is awake and alert, he has good strength, no abdominal pain or vomiting however he still have some loose bowel movement. No blood in stool. Patient conference to me he was taking Coumadin prior to coming to the hospital for A. fib however it is on hold now, oncology team are recommending liver biopsy so we will not start anticoagulation now. CEA is elevated 1078 Patient still have low-grade fever 99.9 and white cell counts, down to 11 K, continue with Zosyn for now. C. diff is negative. Stool culture are pending. Colonic biopsy showing moderately differentiated adenocarcinoma. With evidence of liver and pulmonary metastases and intra-abdominal lymphadenopathy per CAT scan of the abdomen and pelvis 02/16/2020 Patient is awake and alert, no new complaints, no abdominal pain or chest pain or dyspnea. No bowel movement today. He has little loose stool yesterday. Distal has low-grade fever 100.2 yesterday, no more fever so far today. His leukocytosis is back to normal at 9.9. However his hemoglobin is trending down to 6.9, patient will need one unit of blood transfusion and I discussed with him with the risks and he verbalized understanding and acceptance for the [facility] sfusion. Anticoagulation is still on hold for now for his GI bleed. Oncology team recommended liver biopsy to rule out 2 primaries. So far patient has diagnosed with moderately differentiated rectal adenocarcinoma. Discussed the plan with the patient and he agrees. 02/17/2020 Patient is awake and alert. No new complaints. He still has fever 99.9. His WBC count is back to normal at 8.1K, is still on Zosyn. Stool culture was negative. If no improvement we'll consider infectious disease consult Liver biopsy is postponed to outpatient per oncology team input. Patient is going for Port-A-Cath placement today. His Coumadin is still on hold and he still on IV Protonix. Yesterday he got one unit of blood transfusion and his hemoglobin went up only from 6.9 to 7.2. 02/18/2020 patient is awake and alert. No specific complaints, no chest pain or dyspnea. No diarrhea or blood in stool. He had one bowel movement yesterday, no abdominal pain. And his vitals are stable. His hemoglobin is improved today to 7.5,he's been afebrile since yesterday, Port-A-Cath was placed yesterday Vitamin B12 is low at 179 and that is been replaced. Also we will add ferrous sulfate If he keeps improving possible discharge in 24-48 hours 02/19/2020 patient remains asymptomatic. However he spiked a low-grade temperature yesterday 99.9. Despite his being on Zosyn.leukocytosis improved. We were abou t to discharge the patient if he did not spike a fever, I'm not sure if this is due to infection or this is a tumor fever. We'll ask for infectious disease team to evaluate the patient. His hemoglobin was improving yesterday, hemoglobin today is pending. His anticoagulation is on hold for GI bleed, also patient is planned for liver biopsy as an outpatient. Based on that patient will need to follow-up to check if he should resume anticoagulation and appointment, GI and oncology/hematology team on the case. Patient vitamin B12 is been replaced, patient informed, risks including anemia and neurological deficit were explained for the patient which could be permanent, he verbalized understanding and acceptance. Discussed with staff Objective - Vital Signs Vital signs: Vital Signs Temp 98.9 F 02/19/20 04:00 Pulse 65 02/19/20 04:00 Resp 18 02/19/20 04:00 BP 116/66 02/19/20 04:00 Pulse Ox 97 02/19/20 04:00 Intake & Output 02/18/20 02/19/20 02/19/20 18:59 06:59 18:59 Intake Total 1045 640 Balance 1045 640 Weight 104.1 kg Intake: Intake, IV Titration 400 Amount Piperacillin-Tazobactam 3 100 .375 gm In Sodium Chloride 0.9% 100 ml @ 25 mls/hr IVPB Q8H [facility] Rx#: [id number] Sodium Chloride 0.9% 1, 300 000 ml @ 50 mls/hr IV . Q20H [facility] Rx#:[id number] Oral 1045 240 Other: Voiding Method Toilet Toilet # Voids 1 2 - Exam GENERAL: The patient is alert and oriented x3, not in any acute distress. Well developed, well nourished. HEENT: Pupils are round and equally reacting to light. EOMI. No scleral icterus. No conjunctival pallor. Normocephalic, atraumatic. No pharyngeal erythema. No thyromegaly. CARDIOVASCULAR: S1 and S2 present. No murmurs, rubs, or gallops. PULMONARY: Chest is clear to auscultation, no wheezing or crackles. ABDOMEN: Soft, nontender, nondistended, normoactive bowel sounds. No palpable organomegaly. MUSCULOSKELETAL: No joint swelling or deformity. EXTREMITIES: No cyanosis, clubbing, or pedal edema. NEUROLOGICAL: Gross neurological examination did not reveal any focal deficits. SKIN: No rashes. no petechiae. - Labs CBC & Chem 7: 02/18/20 09:04 02/17/20 06:54 Labs: Abnormal Lab Results - Last 24 Hours (Table) 02/18/20 Range/Units 09:04 RBC 3.80 L (4.30-5.90) m/uL Hgb 7.5 L (13.0-17.5) gm/dL Hct 26.1 L (39.0-53.0) % MCV 68.8 L (80.0-100.0) fL MCH 19.8 L (25.0-35.0) pg MCHC 28.8 L (31.0-37.0) g/dL RDW 25.2 H (11.5-15.5) % Plt Count 498 H (150-450) k/uL Microbiology - Last 24 Hours (Table) 02/13/20 13:16 Blood Culture - Preliminary Blood No Growth after 120 hours Assessment and Plan Assessment: -Rectal adenocarcinoma, 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 Oncology team on the case. Liver biopsy is recommendedas an outpatient -Possible proctitis related to his rectal mass, associated with sepsis with fever and leukocytosis. continue with Zosyn. improving however he still has fever, consult ID team -severe anemia with acute and chronic lower GI bleed: hemoglobin is stable patient has a friable rectal mass, anticoagulation continue to be held, follow- up with hematology and GI/surgery teams upon dischargeto decide when to restart anticoagulation. -Liver metastasis, rule out another primary tumor with liver biopsy. -Acute renal failure on chronic kidney disease stage II improved with the IV fluids and blood transfusion -atrial fibrillation probably paroxysmal presently rate controlled -Hypertension because of episodes of this year bleed will monitor the blood pressure without anyantihypertensivemedications. DVT prophylaxis: No anticoagulation and review of his GI bleed GI prophylaxis, Ppi Prognosis is guarded plan discussed with the patient in details and he agrees
[2020-02-19] MEDS: METOPROLOL SUCCINATE (ER) 100 MG TAB.ER.24H PO SCH (09:22)
[2020-02-19 09:33] LABS: Anisocytosis Marked; Basophils # (A) 0.1 k/uL (0-0.2); Basophils % (A) 1 %; Eosinophils # (A) 0.2 k/uL (0-0.7); Eosinophils % (A) 2 %; HGB 7.3 gm/dL (13.0-17.5); Hypochromasia Marked; Lymphocytes # (A) 0.9 k/uL (1.0-4.8); Lymphocytes % (A) 10 %; MCH 19.7 pg (25.0-35.0); MCHC 29.1 g/dL (31.0-37.0); MCV 67.6 fL (80.0-100.0); Mean Platelet Volume 7.6; Microcytosis Marked; Monocytes % (A) 11 %; Neutrophils # (A) 6.7 k/uL (1.3-7.7); Neutrophils % (A) 74 %; Platelet Count 450 k/uL (150-450); Poikilocytosis Moderate
[2020-02-19 09:37] LABS: RDW 26.6 % (11.5-15.5)
[2020-02-19 10:05] LABS: Target Cells Present
[2020-02-19] MEDS: polyethylene glycoL 3350 17 GM POWD.PACK PO SCH (11:14)
[2020-02-19] MEDS: ATORVASTATIN 80 MG TAB PO SCH (11:14)
[2020-02-19] MEDS: CYANOCOBALAMIN 1,000 MCG/ML 1 ML VIAL IM SCH (11:14)
--- NOTE | 2020-02-19 11:57 | P.PN ---
Subjective Progress Note Date: 02/19/20 Principal diagnosis: Rectal cancer Patient doing well today. No pain. Tolerating diet. Objective - Vital Signs Vital signs: Vital Signs Temp 98.5 F 02/19/20 08:00 Pulse 66 02/19/20 08:00 Resp 18 02/19/20 08:00 BP 136/80 02/19/20 08:00 Pulse Ox 97 02/19/20 08:00 Intake & Output 02/18/20 02/19/20 02/19/20 18:59 06:59 18:59 Intake Total 1045 640 Balance 1045 640 Weight 104.1 kg Intake: Intake, IV Titration 400 Amount Piperacillin-Tazobactam 3 100 .375 gm In Sodium Chloride 0.9% 100 ml @ 25 mls/hr IVPB Q8H [facility] Rx#: [id number] Sodium Chloride 0.9% 1, 300 000 ml @ 50 mls/hr IV . Q20H [facility] Rx#:[id number] Oral 1045 240 Other: Voiding Method Toilet Toilet Toilet # Voids 1 2 - Exam Chest incision clean and dry abdominal soft nontender - Labs CBC & Chem 7: 02/19/20 07:44 02/17/20 06:54 Labs: Abnormal Lab Results - Last 24 Hours (Table) 02/18/20 02/19/20 02/19/20 Range/Units 09:04 07:44 07:44 RBC 3.80 L 3.70 L (4.30-5.90) m/uL Hgb 7.5 L 7.3 L (13.0-17.5) gm/dL Hct 26.1 L 25.0 L (39.0-53.0) % MCV 68.8 L 67.6 L (80.0-100.0) fL MCH 19.8 L 19.7 L (25.0-35.0) pg MCHC 28.8 L 29.1 L (31.0-37.0) g/dL RDW 25.2 H 26.6 H (11.5-15.5) % Plt Count 498 H (150-450) k/uL Lymphocytes # 0.9 L (1.0-4.8) k/uL Procalcitonin 0.74 H (0.02-0.09) ng/mL Microbiology - Last 24 Hours (Table) 02/14/20 17:47 Stool Culture - Final Stool 02/13/20 13:16 Blood Culture - Preliminary Blood No Growth after 120 hours Assessment and Plan (1) Rectal mass Narrative/Plan: Patient doing well at this time. Possible discharge today. Current Visit: Yes Status: Acute Code(s): K62.89 - OTHER SPECIFIED DISEASES OF ANUS AND RECTUM SNOMED Code(s): 016839322
--- NOTE | 2020-02-19 15:39 | P.PN ---
Subjective Progress Note Date: 02/19/20 Principal diagnosis: GI bleed, new Rectal adenocarcinoma In follow-up today, patient is doing well, he is currently denying any bleeding, he is still able to pass stool, he has his port placed. He is tolerating oral intake, no pain. Objective - Vital Signs Vital signs: Vital Signs Temp 99.0 F 02/19/20 12:00 Pulse 68 02/19/20 12:00 Resp 18 02/19/20 12:00 BP 116/62 02/19/20 12:00 Pulse Ox 96 02/19/20 12:00 Intake & Output 02/18/20 02/19/20 02/19/20 18:59 06:59 18:59 Intake Total 1045 640 240 Balance 1045 640 240 Weight 104.1 kg Intake: Intake, IV Titration 400 Amount Piperacillin-Tazobactam 3 100 .375 gm In Sodium Chloride 0.9% 100 ml @ 25 mls/hr IVPB Q8H [facility] Rx#: [id number] Sodium Chloride 0.9% 1, 300 000 ml @ 50 mls/hr IV . Q20H [facility] Rx#:[id number] Oral 1045 240 240 Other: Voiding Method Toilet Toilet Toilet # Voids 1 2 1 - Constitutional General appearance: Present: average body habitus, cooperative, no acute distre ss - EENT Eyes: Present: anicteric sclerae, EOMI ENT: Present: hearing grossly normal - Respiratory Details: Respirations even and unlabored, patient is independently ambulatory. Patient's right chest wall port is still bandaged, dressing is clean dry and intact, no bruising, redness or warmth to touch is noted - Cardiovascular Details: Skin warm and dry to the touch - Neurologic Neurologic: Present: CNII-XII intact - Musculoskeletal Musculoskeletal: Present: strength equal bilaterally - Psychiatric Psychiatric: Present: A&O x's 3, appropriate affect, intact judgment & insight - Labs CBC & Chem 7: 02/19/20 07:44 02/17/20 06:54 Labs: Abnormal Lab Results - Last 24 Hours (Table) 02/19/20 02/19/20 Range/Units 07:44 07:44 RBC 3.70 L (4.30-5.90) m/uL Hgb 7.3 L (13.0-17.5) gm/dL Hct 25.0 L (39.0-53.0) % MCV 67.6 L (80.0-100.0) fL MCH 19.7 L (25.0-35.0) pg MCHC 29.1 L (31.0-37.0) g/dL RDW 26.6 H (11.5-15.5) % Lymphocytes # 0.9 L (1.0-4.8) k/uL Procalcitonin 0.74 H (0.02-0.09) ng/mL Microbiology - Last 24 Hours (Table) 02/14/20 17:47 Stool Culture - Final Stool 02/13/20 13:16 Blood Culture - Preliminary Blood No Growth after 120 hours Assessment and Plan (1) Rectal adenocarcinoma Narrative/Plan: Port has been placed. Biomarkers on pathology specimen has been ordered. Okay to hold off on liver biopsy at this time. If additional biopsies are necessary these can be scheduled outpatient. Current Visit: Yes Status: Acute Priority: High Code(s): C20 - MALIGNANT NEOPLASM OF RECTUM SNOMED Code(s): 838537097 (2) Microcytic hypochromic anemia Narrative/Plan: Parenteral iron ordered. Patient has received 4 doses of the same, iron studies will be due to be rechecked week of March 19. He has been started on B12 parenterally. Dosing will continue in the outpatient setting to complete loading dose. He's been started on folic acid orally. These will continue in the outpatient setting Current Visit: Yes Status: Acute Priority: High Code(s): D50.9 - IRON DEFICIENCY ANEMIA, UNSPECIFIED SNOMED Code(s): 65865024 Plan: Patient has a follow-up with Dr. Severino 02/22 at noon. Patient is aware of the appointment time. Case was discussed with Interventional Radiologist. No liver biopsy at this time. Patient is okay from an Oncology standpoint to be discharged once he's been cleared by Attending and Consulting Physicians.
--- NOTE | 2020-02-19 21:33 | P.CONS ---
History of Present Illness - Reason for Consult Consult date: 02/19/20 Fever Requesting physician: Amarjit E Sheet - Chief Complaint Shortness of breath and rectal bleeding x weeks - History of Present Illness Patient is a 55-year-old male presenting to the ER at [facility] about 8 days ago on 02/10/2020 for evaluation of bleeding per rectum that has been going on for a couple of months now and also increasing shortness of breath currently the patient did have a blood work done at the PCP office he was noticed to be anemic and was directed to go to the hospital patient was evaluated by the GI service and the patient did have upper and lower GI, patient was noticed to have mild gastritis non-obstructing rectal mass biopsied, which subsequently came back positive for moderately differentiating infiltrating adenocarcinoma , patient also have a CT of the chest abdominal pelvis CT shows marked rectosigmoid wall thickening compatible with malignancy numerous large intrahepatic lesions with the largest measuring approximately 10 cm and numerous bilateral pulmonary nodules with metastases, patient has been advised by surgery and he did have a MediPort placed the patient has been running low-grade fever with a temperature of 99.9 on 02/16/2020 as well as 02/18/2020 there was a possible report of temperature of 101F this morning however not documented on the patient record, the patient decided was put on hold and infection was consulted for further management patient did have a mildly elevated pro calcitonin and is currently being treated empirically with Zosyn. The patient however denies having any headache no urinary symptoms with chest pain or shortness of breath or cough no nausea no vomiting noted no abdominal pain and no urinary symptoms Review of Systems Positive point has been mentioned in the HPI rest of the systems are negative Past Medical History Past Medical History: Atrial Fibrillation, Cancer, Hypertension Additional Past Medical History / Comment(s): SEE DR CROSS H&P History of Any Multi-Drug Resistant Organisms: None Reported Past Surgical History: Cardiac Ablation, Tonsillectomy Additional Past Surgical History / Comment(s): CARDIOVERSION Past Anesthesia/Blood Transfusion Reactions: No Reported Reaction Past Psychological History: No Psychological Hx Reported Smoking Status: Former smoker Past Alcohol Use History: Occasional Past Drug Use History: None Reported Medications and Allergies Home Medications Medication Instructions Recorded Confirmed Type Aspirin 81 mg PO DAILY 04/11/14 02/10/20 History Atorvastatin [Lipitor] 80 mg PO DAILY 04/11/14 02/10/20 History Metoprolol Succinate 200 mg PO DAILY 08/09/18 02/10/20 History lisinopriL 20 mg PO DAILY #0 02/12/20 02/10/20 Rx Folic Acid 1 mg PO DAILY #90 tablet 02/19/20 Rx Allergies Allergy/AdvReac Type Severity Reaction Status Date / Time No Known Allergies Allergy Verified 02/16/20 13:34 Physical Exam Vitals: Vital Signs Temp Pulse Resp BP Pulse Ox 02/19/20 16:00 68 18 02/19/20 12:00 99.0 F 68 18 116/62 96 02/19/20 08:00 98.5 F 66 18 136/80 97 02/19/20 04:00 98.9 F 65 18 116/66 97 02/19/20 00:00 98.8 F 61 18 126/80 96 02/18/20 20:00 99.0 F 64 18 133/74 95 Intake and Output 02/19/20 02/19/20 02/19/20 06:59 14:59 22:59 Intake Total 640 240 Balance 640 240 Intake: Intake, IV Titration 400 Amount Piperacillin-Tazobactam 3 100 .375 gm In Sodium Chloride 0.9% 100 ml @ 25 mls/hr IVPB Q8H [facility] Rx#: [id number] Sodium Chloride 0.9% 1, 300 000 ml @ 50 mls/hr IV . Q20H [facility] Rx#:[id number] Oral 240 240 Other: Voiding Method Toilet Toilet Toilet # Voids 2 1 Weight 104.1 kg GENERAL DESCRIPTION: Middle-aged male lying in bed, no distress. No tachypnea or accessory muscle of respiration use. HEENT: Shows Pallor , no scleral icterus. Oral mucous membrane is dry. No pharyngeal erythema or thrush NECK: Trachea central, no thyromegaly. LUNGS: Unlabored breathing. Clear to auscultation anteriorly. No wheeze or crackle. HEART: S1, S2, regular rate and rhythm. No loud murmur ABDOMEN: Soft, no tenderness , guarding or rigidity, no organomegaly EXTREMITIES: No edema of feet. SKIN: No rash, no masses palpable. NEUROLOGICAL: The patient is awake, alert, oriented x3, mood and affect normal. Results CBC & Chem 7: 02/19/20 07:44 09/26/20 06:54 Labs: Abnormal Lab Results - Last 24 Hours (Table) 02/19/20 02/19/20 Range/Units 07:44 07:44 RBC 3.70 L (4.30-5.90) m/uL Hgb 7.3 L (13.0-17.5) gm/dL Hct 25.0 L (39.0-53.0) % MCV 67.6 L (80.0-100.0) fL MCH 19.7 L (25.0-35.0) pg MCHC 29.1 L (31.0-37.0) g/dL RDW 26.6 H (11.5-15.5) % Lymphocytes # 0.9 L (1.0-4.8) k/uL Procalcitonin 0.74 H (0.02-0.09) ng/mL Microbiology - Last 24 Hours (Table) 02/13/20 13:16 Blood Culture - Final Blood No Growth after 144 hours 02/14/20 17:47 Stool Culture - Final Stool Assessment and Plan Assessment: 1- patient with low-grade fever in this patient presented to the hospital with i ncreasing shortness of breath and rectal bleeding for months with evidence of moderately differentiating adenocarcinoma on a rectal biopsy with evidence of metastatic disease with numerous metastases to the liver and to the lungs likely source of his low-grade fever and his his metastatic adenocarcinoma patient currently does not look toxic and did not have any symptoms or signs on clinical examination to points towards bacterial infection, he did have elevated pro calcitonin however that is trending down and the patient currently covered with empiric Zosyn cultures has been made so far (1) Fever Current Visit: Yes Status: Acute Code(s): R50.9 - FEVER, UNSPECIFIED SNOMED Code(s): 834871763 Plan: 1-with Suspicion of for underlying bacterial infection antibiotic and may be discontinued 2-if remains to be afebrile off antibiotic he will be able to go home in the a.m. on no antibiotics We will follow on clinical condition and cultures to further adjust medication if needed Thank you for this consultation will follow this patient with you Time with Patient: Greater than 30
[2020-02-20] MEDS: PANTOPRAZOLE 40 MG TABLET PO SCH (06:47)
[2020-02-20] MEDS: FERROUS SULFATE 325 MG TAB PO SCH ×2 (06:47→12:30)
[2020-02-20 08:29] VITALS: RESP 18
[2020-02-20] MEDS: METOPROLOL SUCCINATE (ER) 100 MG TAB.ER.24H PO SCH (08:42)
[2020-02-20] MEDS: CYANOCOBALAMIN 1,000 MCG/ML 1 ML VIAL IM SCH (08:42)
[2020-02-20] MEDS: ATORVASTATIN 80 MG TAB PO SCH (08:42)
[2020-02-20] MEDS: polyethylene glycoL 3350 17 GM POWD.PACK PO SCH (08:42)
[2020-02-20 10:00] LABS: Anisocytosis Marked; Basophils # (A) 0.1 k/uL (0-0.2); Basophils % (A) 1 %; Eosinophils # (A) 0.3 k/uL (0-0.7); Eosinophils % (A) 3 %; HCT 27.3 % (39.0-53.0); HGB 7.8 gm/dL (13.0-17.5); Hypochromasia Marked; Lymphocytes # (A) 0.8 k/uL (1.0-4.8); Lymphocytes % (A) 9 %; MCH 19.6 pg (25.0-35.0); MCHC 28.7 g/dL (31.0-37.0); MCV 68.4 fL (80.0-100.0); Mean Platelet Volume 7.1; Microcytosis Marked; Monocytes # (A) 0.8 k/uL (0-1.0); Monocytes % (A) 9 %; Neutrophils # (A) 7.3 k/uL (1.3-7.7); Neutrophils % (A) 78 %; Platelet Count 577 k/uL (150-450); Poikilocytosis Moderate; WBC 9.4 k/uL (3.8-10.6)
[2020-02-20 10:18] LABS: RDW 26.9 % (11.5-15.5)
[2020-02-20 12:45] VITALS: BP 126/74; PULSE 60; TEMP 99.2
--- NOTE | 2020-02-20 14:17 | PN ---
PROGRESS NOTE DATE OF SERVICE: 02/20/2020 REASON FOR FOLLOWUP: Fever. INTERVAL HISTORY: The patient is currently afebrile. The patient is feeling better. He is breathing comfortably. Patient denies having any chest pain. No shortness of breath or cough. No nausea, no vomiting, no abdominal pain or diarrhea. PHYSICAL EXAM: Blood pressure 127/73 with a pulse of 66, temperature 98.7. He is 96% on room air. General description is a middle-aged male, up in the chair in no distress. RESPIRATORY SYSTEM: Unlabored breathing, clear to auscultation anteriorly. HEART: S1, S2. Regular rate and rhythm. ABDOMEN: Soft, no tenderness. EXTREMITIES: No edema of the feet. LABS: Hemoglobin is 7.8, white count 9.4. CRP elevated to 170. IMPRESSION/PLAN: Patient with low-grade fever, more likely related to his underlying metastatic colon cancer with no evidence of any secondary bacterial infection. Patient has been taken of antibiotic yesterday and seems to be doing well off antibiotic therapy. Recommend no antibiotic on discharge and close outpatient followup. His questions and concerns were answered. MMODL / IJN: [id number] /
--- NOTE | 2020-02-20 16:11 | P.PN ---
Subjective Progress Note Date: 02/20/20 Principal diagnosis: Rectal cancer Patient has no new complaints. Doing well. No pain. Denies any significant rectal bleeding. Tolerating diet. Labs noted. Objective - Vital Signs Vital signs: Vital Signs Temp 99.2 F 02/20/20 12:00 Pulse 60 02/20/20 12:00 Resp 18 02/20/20 12:00 BP 126/74 02/20/20 12:00 Pulse Ox 100 02/20/20 12:00 Intake & Output 02/19/20 02/20/20 02/20/20 18:59 06:59 18:59 Intake Total 240 540 Output Total 450 Balance 240 -450 540 Weight 104.4 kg Intake: Oral 240 540 Output: Urine 450 Other: Voiding Method Toilet Toilet Toilet # Voids 1 1 3 - Exam Abdomen: Soft, nondistended, nontender - Labs CBC & Chem 7: 02/20/20 09:05 02/17/20 06:54 Labs: Abnormal Lab Results - Last 24 Hours (Table) 02/20/20 02/20/20 Range/Units 09:05 09:05 RBC 4.00 L (4.30-5.90) m/uL Hgb 7.8 L (13.0-17.5) gm/dL Hct 27.3 L (39.0-53.0) % MCV 68.4 L (80.0-100.0) fL MCH 19.6 L (25.0-35.0) pg MCHC 28.7 L (31.0-37.0) g/dL RDW 26.9 H (11.5-15.5) % Plt Count 577 H (150-450) k/uL Lymphocytes # 0.8 L (1.0-4.8) k/uL C-Reactive Protein 173.5 H (<10.0) mg/L Microbiology - Last 24 Hours (Table) 02/13/20 13:16 Blood Culture - Final Blood No Growth after 144 hours Assessment and Plan (1) Rectal mass Narrative/Plan: Agree with plans for discharge. Outpatient chemotherapy per oncology. Further workup of liver masses per oncology. Current Visit: Yes Status: Acute Code(s): K62.89 - OTHER SPECIFIED DISEASES OF ANUS AND RECTUM SNOMED Code(s): 257854085
--- NOTE | 2020-02-20 22:42 | P.DS ---
Providers Date of admission: 02/11/20 00:52 Attending physician: Lisset Calvo Consults: 02/12/20 12:04 Consult Physician Urgent Consulting Provider: Adolfo Mena Consult Reason/Comments: rectal mass Do you want consulting provider notified?: Already Contacted 02/14/20 13:16 Consult Physician Routine Consulting Provider: Cl Ornelas Consult Reason/Comments: suspected rectal adnocarcinoma with metastatic disease Do you want consulting provider notified?: Yes 02/19/20 08:30 Consult Physician Routine Consulting Provider: Radhames Chambers Consult Reason/Comments: persistant fever despite improving on antibiotic Do you want consulting provider notified?: Yes Primary care physician: Honeydelisa FariasDelfina [facility] Course: Diagnoses: -Rectal adenocarcinoma, 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 Oncology team on the case. Liver biopsy is recommendedas an outpatient -Possible proctitis related to his rectal mass, associated with sepsis with fever and leukocytosis. Improved With antibiotics -severe anemia with acute and chronic lower GI bleed: hemoglobin is stable patient has a friable rectal mass, anticoagulation continue to be held, follow- up with hematology and GI/surgery teams upon dischargeto decide when to restart anticoagulation. -Liver metastasis, rule out another primary tumor with liver biopsy. -Acute renal failure on chronic kidney disease stage II improved with the IV fluids and blood transfusion -atrial fibrillation probably paroxysmal presently rate controlled -Low vitamin B12 (179), replaced -Hypertension because of episodes of this year bleed will monitor the blood pressure without anyantihypertensivemedications. DVT prophylaxis: No anticoagulation and review of his GI bleed GI prophylaxis, Ppi Prognosis is guarded plan discussed with the patient in details and he agrees Hospital course: 55-year-old male came inlow hemoglobin secondary to GI bleed with blood in stool. Patient is found to have hemoglobin of 5.7 patient received several units of PRBC transfusion throughout his course of hospitalization. Patient has history of atrial fibrillation and he was on Coumadin. Further workup showed the patient to have rectal mass with liver and lung metastasis with intra- abdominal adenopathic and CAT scan of the abdomen and chest. CEA was elevated. Several consultants was evaluated the patient including GI, surgery team, hematology/oncology team. Oncology team recommended outpatient liver biopsy to rule out primary sources for his cancer given his history of smoking. Port-A-Cath was placed by surgery team. Also patient found to have leukocytosis and moderate grade fever, he was treated with Zosyn showed interval improvement. Patient remained asymptomatic for several days. However low-grade fever persist. However patient denies headache, no chest pain, no dyspnea, no abdominal pain, no nausea vomiting, he tolerates diet, he had regular bowel movements with no diarrhea, no abdominal pain. No rash. No other new symptoms ID team consulted and they recommended to hold antibiotic, patient remained with low-grade fever but asymptomatic and patient was cleared for discharge by ID team with no antibiotics The decision to start anticoagulation is deferred for outpatient, as patient still have rectal mass and borderline hemoglobin. Upon recommendation by video game repair technician team hold anticoagulation and follow-up with Dr. Severino in 3 days for possible liver biopsy and to decide when to start anticoagulation. At this time risk of anticoagulation is more than benefits so that need to be held, also patient may need liver biopsy so he needs to hold anticoagulation Patient is high-risk for bleeding risk of stroke is explained for the patient and he agrees to hold anticoagulation now, and he agrees to follow-up with his oncologist Dr. Severino, his PCP Dr. Monge and GI team to decide when to start anticoagulation. Problems and management plan were discussed with the patient and he verbalized understanding and acceptance Patient was found stable and can be discharged home however he needs follow-up as an outpatient. Patient was instructed to follow up with PCP Dr. Monge within one week and patient agrees. Patient agrees with the appointments made for him with Dr. Monge in 02/25, with Dr. Washington from GI on 03/[address] Severino video game repair technician/oncologist on 02/22 and 3 days and states he will follow-up Gen: patient is a AAOx3, no distress CVS: S1-S2, RRR, no murmur Lungs: B/L CTA, no wheezing Abdomen: soft, no distention, no tenderness, positive bowel sounds Extremity: no leg edema or induration Time spent more than 35 minutes Patient Condition at Discharge: Serious Plan - Discharge Summary Discharge Rx Participant: Yes New Discharge Prescriptions: New Folic Acid 1 mg PO DAILY #90 tablet Ferrous Sulfate [Iron (65 MG Elemental)] 325 mg PO TID-W/MEALS #90 tab Pantoprazole [Protonix] 40 mg PO AC-BID #60 tablet. Cyanocobalamin [Vitamin B-12] 1,000 mcg PO DAILY #30 tablet Continue Atorvastatin [Lipitor] 80 mg PO DAILY Metoprolol Succinate 200 mg PO DAILY Discontinued Warfarin [Coumadin] 10 mg PO SUTUWETHSA lisinopriL 40 mg PO DAILY Aspirin 81 mg PO DAILY amLODIPine BESYLATE 5 mg PO DAILY Spironolactone 50 mg PO DAILY Warfarin [Coumadin] 5 mg PO MOFR Discharge Medication List Atorvastatin [Lipitor] 80 mg PO DAILY 04/11/14 [History] Metoprolol Succinate 200 mg PO DAILY 08/09/18 [History] Folic Acid 1 mg PO DAILY #90 tablet 02/19/20 [Rx] Cyanocobalamin [Vitamin B-12] 1,000 mcg PO DAILY #30 tablet 02/20/20 [Rx] Ferrous Sulfate [Iron (65 MG Elemental)] 325 mg PO TID-W/MEALS #90 tab 02/20/20 [Rx] Pantoprazole [Protonix] 40 mg PO AC-BID #60 tablet. 02/20/20 [Rx] Follow up Appointment(s)/Referral(s): Honey Monge DO [Primary Care Provider] - 02/26/20 9:00 am Po Washington MD [STAFF PHYSICIAN] - 03/04/20 4:00 pm Monika Severino MD [STAFF PHYSICIAN] - 02/23/20 12:00 pm (Oncologist/video game repair technician Please discuss restarting your Coumadin and aspirin with your video game repair technician/oncologist) Patient Instructions/Handouts: Gastrointestinal Bleeding (DC) Activity/Diet/Wound Care/Special Instructions: Please fax records to Dr. Monge and Dr. Washington when discharged. Discharge Disposition: HOME SELF-CARE
== END 2020-02-20 16:37 | disposition home or self-care (01) | DRG 374 ==
LOC: EC 21:36 → 3SCARD 02-11 00:52
PROVIDERS: ADMIT Hospitalist; ATTEND Hospitalist
PROC: 0DB98ZX Excision of Duodenum, Via Natural or Artificial Opening Endoscopic, Diagnostic (ICD-10-PCS; principal; 2020-02-12 08:40)
PROC: 0DB68ZX Excision of Stomach, Via Natural or Artificial Opening Endoscopic, Diagnostic (ICD-10-PCS; principal; 2020-02-12 08:40)
PROC: 0DB48ZX Excision of Esophagogastric Junction, Via Natural or Artificial Opening Endoscopic, Diagnostic (ICD-10-PCS; principal; 2020-02-12 08:40)
PROC: 0DBP8ZX Excision of Rectum, Via Natural or Artificial Opening Endoscopic, Diagnostic (ICD-10-PCS; principal; 2020-02-12 08:40)
PROC: 02HV33Z Insertion of Infusion Device into Superior Vena Cava, Percutaneous Approach (ICD-10-PCS; 2020-02-12 08:40)
PROC: 0JH63WZ Insertion of Totally Implantable Vascular Access Device into Chest Subcutaneous Tissue and Fascia, Percutaneous Approach (ICD-10-PCS; 2020-02-12 08:40)
PROC: 30233N1 Transfusion of Nonautologous Red Blood Cells into Peripheral Vein, Percutaneous Approach (ICD-10-PCS; 2020-02-12 08:40)
DX: C20 Malignant neoplasm of rectum (principal); A41.9 Sepsis, unspecified organism; N17.9 Acute kidney failure, unspecified; D62 Acute posthemorrhagic anemia; C78.7 Secondary malignant neoplasm of liver and intrahepatic bile duct; C78.00 Secondary malignant neoplasm of unspecified lung; K51.20 Ulcerative (chronic) proctitis without complications; C79.89 Secondary malignant neoplasm of other specified sites; I48.0 Paroxysmal atrial fibrillation; E78.5 Hyperlipidemia, unspecified; I12.9 Hypertensive chronic kidney disease with stage 1 through stage 4 chronic kidney disease, or unspecified chronic kidney disease; D63.1 Anemia in chronic kidney disease; E86.9 Volume depletion, unspecified; N18.2 Chronic kidney disease, stage 2 (mild); E53.8 Deficiency of other specified B group vitamins; D53.9 Nutritional anemia, unspecified; K29.50 Unspecified chronic gastritis without bleeding; Z79.899 Other long term (current) drug therapy; Z79.82 Long term (current) use of aspirin; Z79.01 Long term (current) use of anticoagulants; Z90.89 Acquired absence of other organs; Z98.890 Other specified postprocedural states; Z87.891 Personal history of nicotine dependence
CPT/HCPCS: 36415; 36430; 43239; 44404; 45380; 71046; 71260; 74177; 77001; 80048; 80053; 81003; 82272; 82378; 82607; 82728; 83540; 83550; 83605; 83615; 83630; 83921; 84145; 85025; 85027; 85045; 85610; 85730; 86140; 86850; 86900; 86901; 86920; 87040; 87045; 87046; 87324; 88305; 93005; 96374; 99285

== ENCOUNTER → 2020-05-20 | Outpatient (CLI) | payer BC ==
[2020-05-20 11:27] LABS: African American GFR (CKD) >90 (>60 ml/min/1.73 sqM); Blood Urea Nitrogen 16 mg/dL (9-20); Non-African American GFR(CKD) >90 (>60 ml/min/1.73 sqM)
--- NOTE | 2020-05-20 14:46 | CT ---
EXAMINATION TYPE: CT ChestAbdPelvis w con DATE OF EXAM: 05/20/2020 COMPARISON: 02/13/2020 HISTORY: 55-year-old male C20, Rectal cancer TECHNIQUE: Contiguous axial scanning of the chest, abdomen, and pelvis performed with IV Contrast, pa tient injected with 100 mL of Isovue 300. Delayed images through the kidneys were obtained. Coronal/s agittal reconstructions performed. CT DLP: 1376.7 mGycm Automated exposure control for dose reduction was used. FINDINGS: CHEST: The heart is upper limits of normal in size with trace 4 mm pericardial fluid stable to minimally inc reased. Ectatic upper ascending aorta 3.9 cm. Right anterior chest wall injection port with catheter tip in the mid to lower SVC. Prevascular space lymphadenopathy has increased measuring up to 2.6 cm versus 1.5 cm, previously. Upper AP window lymphadenopathy has increased measuring 3.2 x 1.9 cm versus 2.6 x 1.1 cm, previously. Subcarinal lymph node is larger at 1.4 cm versus 7 mm as is an adjacent right paraesophageal lymph no de at 1.4 cm versus 1.2 cm, previously. Multiple bilateral pulmonary nodules are redemonstrated. The largest on the right measures 1.7 cm faiza julian 1.2 cm, previously. Largest on the left measures 1.5 cm versus 1.0 cm, previously. No consolidation or pleural effusion. ABDOMEN: Liver enlarged at 22.9 cm. Extensive metastatic disease involvement of the liver is redemonstrated. I n the lateral right hepatic dome, mass measures up to 9.3 cm versus 6.9 cm, previously. At the left hepatic dome, mass measures 8.1 cm versus 5.3 cm, previously. Fairly heavy disease burden is redemonstrated. Portacaval lymphadenopathy at this 6.2 x 3.6 cm versus 5.5 x 3.6 cm, previously. Additional scattered gastric hepatic ligament peripancreatic lymphadenopathy is present and approxima tely stable. Right retrocrural lymphadenopathy measures 1.9 cm versus 1.2 cm, previously. Left periaortic lymphadenopathy measures 3.1 x 2.7 cm versus 2.6 x 1.7 cm, previously. Additional sca ttered aortocaval lymph nodes in the retroperitoneum show increasing size as well. No dilated small bowel, free fluid, free air. Some layering gravel in the nondistended gallbladder. Adrenal glands, right kidney, spleen, and pancr eas show no gross abnormality. Subcentimeter cortical hypodensity medial lower pole left kidney too s mall for accurate CT catheterization, likely cyst. Oral contrast progressed to the mid transverse colon. PELVIS: There is annular rectal narrowing though some improvement in the degree of soft tissue thickening. However, perirectal lymphadenopathy persists but is relatively similar measuring up to 2.4 x 1.5 cm o n the left and 2.1 x 1.4 cm posteriorly. Right obturator chain lymphadenopathy increased, measuring 2.1 x 1.5 cm versus 1.7 x 1.3 cm cyst, pre viously. Presacral edema. No abnormal fluid collection. Bladder is collapsed. BONES: Mild degenerative change of the hips. No osseous destructive processes. IMPRESSION: 1. REDEMONSTRATED ANNULAR RECTAL NARROWING AT THE SITE OF PATIENT'S PRIMARY NEOPLASM. THOUGH THE OVER ALL DEGREE OF SOFT TISSUE THICKENING HERE MAY BE SLIGHTLY IMPROVED, THERE IS OVERALL PROGRESSION THRO UGHOUT THE CHEST, ABDOMEN, AND PELVIS. 2. PROGRESSION INCLUDES ENLARGING BILATERAL PULMONARY NODULES, ENLARGING MEDIASTINAL, RIGHT RETROCRUR AL, UPPER ABDOMINAL, RETROPERITONEAL, AND RIGHT OBTURATOR CHAIN LYMPHADENOPATHY. PERIRECTAL LYMPHADEN OPATHY IS RELATIVELY STABLE. 3. ADDITIONALLY, PROGRESSIVE ENLARGEMENT OF NUMEROUS HEPATIC MASSES (FOR EXAMPLE, MEASURING UP TO 9.3 CM IN THE RIGHT LOBE VERSUS 6.9 CM, PREVIOUSLY). FAIRLY HEAVY BURDEN OF DISEASE IN THE LIVER WITH HE PATOMEGALY AT 22.9 CM.
== END | disposition home or self-care (01) ==
LOC: RADPROMAIN 10:35
PROVIDERS: ATTEND Internal Medicine Hematology & Oncology
DX: R91.8 Other nonspecific abnormal finding of lung field (principal); R59.1 Generalized enlarged lymph nodes; R16.0 Hepatomegaly, not elsewhere classified; C20 Malignant neoplasm of rectum
CPT/HCPCS: 82565; 84520; 71260; 74177; 36415; Q9967

== ENCOUNTER → 2020-09-02 | Outpatient (CLI) | payer BC ==
[2020-09-02 11:53] LABS: African American GFR (CKD) >90 (>60 ml/min/1.73 sqM); Blood Urea Nitrogen 12 mg/dL (9-20); Non-African American GFR(CKD) >90 (>60 ml/min/1.73 sqM)
--- NOTE | 2020-09-02 14:45 | CT ---
EXAMINATION TYPE: CT ChestAbdPelvis w con DATE OF EXAM: 09/02/2020 COMPARISON: 05/20/2020, 02/13/2020 HISTORY: 55-year-old male C20, Rectal cancer, and Z03.89, observation for metastases. TECHNIQUE: Contiguous axial scanning of the chest, abdomen, and pelvis performed with IV Contrast, pa tient injected with 100 ml mL of Isovue 300. Delayed images through the kidneys were obtained. Le l/sagittal reconstructions performed. CT DLP: 3 mGycm Automated exposure control for dose reduction was used. FINDINGS: CHEST: Heart normal size without pericardial effusion. Mildly ectatic ascending aorta 3.8 cm. Bovine configuration to the aortic arch. Right anterior chest wall injection port with catheter tip at the lower SVC. Mild to moderate bilateral gynecomastia. Demonstrated prevascular space lymph nodes, nodes currently measuring up to 2.3 x 1.9 cm versus 2.5 x 2.1 cm, previously. Right paraesophageal lymph node measures 1.1 cm versus 1.4 cm, previously. Bilateral pulmonary nodules are redemonstrated. These are either stable or slightly smaller, for exam ple: Right upper lobe measuring 1.0 cm on axial image 24 versus 1.3 cm, previously. A previous dominant 1.2 cm left midlung nodule slightly smaller now at 1.1 cm. Dominant anterior right mid to lower lung pulmonary nodule measures 1.5 cm versus 1.7 cm, previously, axial image 34. Medial right basilar pulmonary nodule, axial image 48 measures 1.3 cm versus 1.7 cm, previously. Posterior left basilar pulmonary nodule, axial image 51 measures 1.3 cm versus 1.5 cm, previously. Numerous additional pulmonary nodules are present. No consolidation or pleural effusion. ABDOMEN: Redemonstrated large bilateral hepatic masses. In the mid anterior liver, mass measures 12.7 cm wide versus 14.6 cm, previously. In the posterior right hepatic dome, mass measures 9.4 cm wide (10.1 cm, previously). In the posterior left hepatic dome, mass measures 10.0 cm wide versus up to 11.4 cm, previously. Portal venous system is patent. No biliary ductal dilatation. Son hepatic lymph node measures 3.0 cm versus 3.7 cm, previously. Portacaval lymph node measures 4.8 x 3.1 cm versus 6.0 x 3.3 cm, previously. Gastrohepatic ligament lymph node measures 1.8 cm versus 2.2 cm, previously. Upper left periaortic lymph node measures 2.7 cm versus 3.1 cm, previously. Gallbladder, adrenal glands, right kidney, spleen, and pancreas show no gross abnormality. Small cortical hypodensity measuring 1.3 cm medial lower pole left kidney is unchanged, too small for accurate CT characterization, possible tiny cyst. No dilated small bowel, free fluid, or free air. No mesenteric lymphadenopathy seen. Oral contrast progressed to the upper ascending colon. Mild to moderate stool burden. PELVIS: Residual circumferential thickening along the lower rectum. Moderate presacral edema and additional p erirectal fat stranding in the perirectal space. Right pelvic sidewall lymph node measures 1.9 cm versus 2.1 cm, previously. Posterior perirectal lymph node measures 2.1 cm versus 2.3 cm, previously. Higher left perirectal lymph node measures 2.1 cm versus 2.4 cm, previously. A single lower posterolateral right perirectal lymph node measures 8 mm versus 6 cm, previously. Additional perirectal nodularity is unchanged. Bladder partially distended. Prostate gland measures 3.8 cm wide. BONES: Mild degenerative change of the hips. Mild degenerative disc disease L5-S1. No osseous destructive pr ocess seen. IMPRESSION: 1. PARTIAL TREATMENT RESPONSE. MEDIASTINAL LYMPH NODES, BILATERAL PULMONARY NODULES, LARGE LIVER MASS ES, UPPER ABDOMINAL LYMPHADENOPATHY, AND PERIRECTAL LYMPHADENOPATHY ALL SHOW SOME DECREASE IN SIZE WI TH MEASUREMENTS ABOVE. SIGNIFICANT RESIDUAL DISEASE REMAINS. 2. ONLY A SINGLE SMALL LOWER RIGHT PERIRECTAL LYMPH NODE IS MINIMALLY LARGER AT 8 MM VERSUS 6 MM, PRE VIOUSLY.
== END | disposition home or self-care (01) ==
LOC: RADCTMAIN 10:31
PROVIDERS: ATTEND Internal Medicine Hematology & Oncology
DX: Z03.89 Encounter for observation for other suspected diseases and conditions ruled out (principal); C20 Malignant neoplasm of rectum; R91.8 Other nonspecific abnormal finding of lung field; R59.1 Generalized enlarged lymph nodes; R16.0 Hepatomegaly, not elsewhere classified
CPT/HCPCS: 82565; 84520; 71260; 74177; 36415; Q9967

== ENCOUNTER → 2020-12-20 | Outpatient (CLI) | payer BC ==
[2020-12-20 14:36] LABS: African American GFR (CKD) >90 (>60 ml/min/1.73 sqM); Blood Urea Nitrogen 11 mg/dL (9-20); Non-African American GFR(CKD) >90 (>60 ml/min/1.73 sqM)
--- NOTE | 2020-12-22 15:27 | CT ---
EXAMINATION TYPE: CT ChestAbdPelvis w con DATE OF EXAM: 12/20/2020 COMPARISON: 09/02/2020, 05/20/2020, 02/13/2020 HISTORY: 55-year-old male C20, follow-up rectal ca TECHNIQUE: Contiguous axial scanning of the chest, abdomen, and pelvis performed with IV Contrast, patient injected with 100 mL of Isovue 300. Delayed images through the kidneys were obtained. Le l/sagittal reconstructions performed. CT DLP: 1587.3 mGycm Automated exposure control for dose reduction was used. FINDINGS: CHEST: Right anterior chest wall injection port with catheter tip at the lower SVC. Heart normal size without pericardial effusion. There are normal caliber with bovine configuration to the aortic arch. AP window lymph node measures 1.8 cm thick versus 1.7 cm, previously. Prevascular space lymph nodes measure up to 1.8 cm, unchanged. Subcarinal lymph node is stable at 1.2 cm. Right retrocrural lymph nodes measure up to 1.7 cm, unchanged in retrospect. Mild bilateral gynecomastia. Numerous bilateral 1 cm and smaller pulmonary nodules are largely unchanged. Largest nodules measure up to 1.5 cm on the right and 1.3 cm on the left, also unchanged. No definite new nodules are identif ied. No consolidation or pleural effusion. ABDOMEN: Multiple large hepatic masses are redemonstrated, for example: Anterior mid liver measuring 12.9 cm versus 12.7 cm, previously. 10.2 cm left hepatic dome versus 10.0 cm, previously. 8.8 cm posterior right hepatic dome versus 9.4 cm, previously. 7.9 cm posterior inferior right liver lobe versus 8.1 cm, previously. These are not significantly changed. Son hepatic lymph node measures 2.7 cm versus 3.0 cm, previously. Gastrohepatic ligament node measures 1.7 cm versus 1.8 cm, previously Left periaortic upper abdominal lymph node measures 2.4 cm versus 2.7 cm, previously. Portacaval lymph node measures 5.2 x 3.1 cm versus 5.8 x 3.1 cm, previously. Additional smaller retroperitoneal lymph nodes are also unchanged. No dilated small bowel, free fluid, or free air. The gallbladder is collapsed. Adrenal glands, right kidney, spleen, and pancreas appear within normal limits. Small 1 cm cortical hypodensity medial lower pole left kidney is unchanged, too small for accurate CT characterization, probable small cyst. Moderate stool burden. Left-sided colonic diverticulosis, greatest in the sigmoid colon. PELVIS: Bladder incompletely distended. Mild distal rectal wall thickening and perirectal and presacral fat s tranding is unchanged. Upper left perirectal lymph node measures 2.0 x 1.2 cm versus 2.1 x 1.2 cm, previously. Right obturator chain lymph node measures 1.9 cm, unchanged. Posterior midline perirectal lymph node measures 2.1 x 1.2 cm, unchanged. Additional smaller perirectal nodularity also remains unchanged. Patient's right testicle has become dated the upper scrotum/lower right internal canal. No abnormal fluid collection in pelvis or progressive lymphadenopathy. BONES: Mild degenerative change of the hips and left SI joint. Moderate degenerative disc disease L5-S1. Fac et arthropathy lower lumbar spine. Mild degenerative disc disease lower thoracic spine. No osseous de structive process. IMPRESSION: 1. RELATIVELY STABLE RESIDUAL DISEASE WITH MEDIASTINAL LYMPH NODES, NUMEROUS BILATERAL PULMONARY NODU LES MEASURING UP TO 1.5 CM, LARGE LIVER MASSES (MEASURING UP TO 12.9 CM), UPPER ABDOMINAL LYMPHADENOP ATHY, AND PERIRECTAL LYMPHADENOPATHY WITH MEASUREMENTS ABOVE. ONLY A SINGLE AP WINDOW LYMPH NODE I S MINIMALLY THICKER AT 1.8 CM VERSUS 1.7 CM, BUT THIS MAY NOT BE SIGNIFICANT. CONTINUED SURVEILLANCE RECOMMENDED. 2. STABLE PERIRECTAL FAT STRANDING AND MILD LOWER RECTAL WALL THICKENING LIKELY POSTTREATMENT CHANGE.
== END | disposition home or self-care (01) ==
LOC: RADPROMAIN 13:45
PROVIDERS: ATTEND Internal Medicine Hematology & Oncology
DX: C20 Malignant neoplasm of rectum (principal); R91.8 Other nonspecific abnormal finding of lung field; R16.0 Hepatomegaly, not elsewhere classified; R59.0 Localized enlarged lymph nodes
CPT/HCPCS: 82565; 84520; 71260; 74177; 36415; Q9967

== ENCOUNTER → 2021-03-17 | Outpatient (CLI) | payer BC ==
[2021-03-17 11:55] LABS: African American GFR (CKD) >90 (>60 ml/min/1.73 sqM); Blood Urea Nitrogen 9 mg/dL (9-20); Non-African American GFR(CKD) >90 (>60 ml/min/1.73 sqM)
--- NOTE | 2021-03-17 22:36 | CT ---
EXAMINATION TYPE: CT ChestAbdPelvis w con DATE OF EXAM: 03/17/2021 INDICATION: Rectal CA COMPARISON: 12/20/2020 CT DLP: 1505.40 mGycm CONTRAST: Performed with Oral Contrast and with IV Contrast, patient injected with 100 mL of Isovue 300. TECHNIQUE: Axial images at 5 mm thick sections. Reconstructed images in the coronal plane. Delayed images through the kidneys. FINDINGS: CT CHEST: Enlarged adenopathy is adjacent to the aortic arch. These were present previously Portion of the thyroid visualized is normal. There are multiple nodules present bilaterally. The largest in the right middle lobe is 1.5 cm and is stable. No enlarged mediastinal or hilar adenopathy is evident. The ascending aorta diameter at the level of the main pulmonary artery is 4.0 cm. The main pulmonary artery diameter at the bifurcation is 3.[address] ABDOMEN: Liver: There are several large hepatic masses within both left and right lobes of liver. The largest measures 9.1 x 13.9 cm. This was present previously and appears stable. Spleen: Normal Pancreas: Normal Adrenal glands: The adrenal glands are normal. Gallbladder: Normal Kidneys: No masses are evident. No hydronephrosis is present. No cysts are present. Delayed images were obtained through the kidneys, which remain unremarkable. Aorta: Normal Inferior vena cava: Normal. CT PELVIS: Loops of bowel within the abdomen and pelvis are normal. There are diverticular changes within the sigmoid colon. Perirectal fat stranding appears to be prese nt. There is a prominent lymph node in the right posterior lateral region measuring 0.8 cm. What may be a large lymph node is posterior to the rectum measuring 1.4 cm. This was present previously measur ing 1.2 cm an additional prominent lymph node is in the left hemipelvis measuring 1.1 cm. Series 3 im age 106. This is stable from comparison. There are loops of bowel which are incompletely distended or lack oral contrast limiting their evalua tion. Appendix: Normal as visualized. Urinary bladder: Normal. Genitourinary structures: Prostate appears normal Osseous structures: No suspicious lytic or sclerotic lesions. Adenopathy: There is shotty lymphadenopathy in the periaortic region. The largest lymph node in this region measures 1.1 cm. Series 3 image 78. IMPRESSIONS: 1. Stable appearing scattered lymphadenopathy within the periaortic region and within the perirectal fat. Some enlarged lymphadenopathy is within the periaortic arch region 2. Large irregular hypodensities within the liver can be compatible with metastatic disease. This natasha ears stable from comparison. 3. Multiple scattered pulmonary nodules the largest nodules are within the right middle lobe and are stable in size.
== END | disposition home or self-care (01) ==
LOC: RADPROMAIN 10:54
PROVIDERS: ATTEND Internal Medicine Hematology & Oncology
DX: C20 Malignant neoplasm of rectum (principal); R91.8 Other nonspecific abnormal finding of lung field; R59.0 Localized enlarged lymph nodes; R93.2 Abnormal findings on diagnostic imaging of liver and biliary tract
CPT/HCPCS: 82565; 84520; 71260; 74177; 36415; Q9967 ×2

== ENCOUNTER → 2021-05-02 | Outpatient (CLI) | payer BC ==
[2021-05-02 13:53] LABS: African American GFR (CKD) >90 (>60 ml/min/1.73 sqM); Blood Urea Nitrogen 11 mg/dL (9-20); Non-African American GFR(CKD) >90 (>60 ml/min/1.73 sqM)
--- NOTE | 2021-05-02 15:24 | CT ---
EXAMINATION TYPE: CT ChestAbdPelvis w con DATE OF EXAM: 05/02/2021 COMPARISON: 03/17/2021 HISTORY: follow up rectal cancer CT DLP: 1382.9 mGycm Automated exposure control for dose reduction was used. CONTRAST: CT scan of the chest, abdomen and pelvis is performed with Oral Contrast and with IV Contrast, patien t injected with 100 mL of Isovue 300. FINDINGS: CT chest: There are multiple innumerable pulmonary nodules consistent with metastatic disease. The largest nodu le is in the right upper lobe and measures approximately 17 mm. There are 2 enlarged lymph nodes in the anterior mediastinum the largest of which measures there is a Mediport catheter junction There is a small sclerotic density in the left aspect of T10 and in both scapulae consistent with bon e metastasis. CT abdomen and pelvis: The liver is enlarged and lobulated in contour and multiple ill-defined low-density lesions within pa rtial enhancement throughout consistent with diffuse metastatic disease. The largest lesion has incre ased from 9.1 cm to 14 cm. The gallbladder is nondistended gallstones. The gallbladder wall thickening but there is mild pericho lecystic fluid there is no biliary ductal dilatation. The pancreas, spleen and adrenal glands are normal. The kidneys excrete contrast promptly and symmetrically is no solid renal mass or hydronephrosis. The re is no retroperitoneal adenopathy or hemorrhage in the caliber of the abdominal aorta is normal. Bowel loops are normal in caliber without evidence of obstruction. There is a small amount of ascites but there is no free intraperitoneal air. There is no pelvic abscess. There are 2 mildly enlarged lymph nodes which were seen previously.. There are scattered punctate sclerotic densities consistent with bone metastasis in the pelvis, right femur and lumbar spine. IMPRESSION: 1. Multiple innumerable pulmonary nodules consistent with metastatic disease to the lungs essentially unchanged compared to previous. 2. Scattered small sclerotic densities within the osseous structures consistent with bone metastasis essentially stable. 3. Marked metastatic disease to the liver which has increased in the interval since the prior study a s described above. 4. Mild perirectal adenopathy which is stable.
== END | disposition home or self-care (01) ==
LOC: RADPROMAIN 13:02
PROVIDERS: ATTEND Internal Medicine Hematology & Oncology
DX: C78.7 Secondary malignant neoplasm of liver and intrahepatic bile duct (principal); C20 Malignant neoplasm of rectum; R59.0 Localized enlarged lymph nodes; M89.8X0 Other specified disorders of bone, multiple sites; R91.8 Other nonspecific abnormal finding of lung field
CPT/HCPCS: 82565; 84520; 71260; 74177; 36415; Q9967

== ENCOUNTER → 2021-08-19 | Outpatient (CLI) | payer BC ==
[2021-08-19 10:21] LABS: African American GFR (CKD) >90 (>60 ml/min/1.73 sqM); Blood Urea Nitrogen 15 mg/dL (9-20); Non-African American GFR(CKD) >90 (>60 ml/min/1.73 sqM)
--- NOTE | 2021-08-19 13:09 | CT ---
EXAMINATION TYPE: CT ChestAbdPelvis w con DATE OF EXAM: 08/19/2021 COMPARISON: CT dated 05/02/2021 HISTORY: Rectal Cancer CT DLP: 1903 mGycm Automated exposure control for dose reduction was used. CONTRAST: CT scan of the chest, abdomen and pelvis is performed with Oral Contrast and with IV Contrast, patien t injected with 100 ml mL of Isovue 300. FINDINGS: LUNGS: Redemonstration of the innumerable multiple variable sized bilateral metastatic pulmonary nodu les. Few of the previously seen nodules are slightly smaller today. For example, a right basal anteri or nodule measures 12 mm compared to 17 mm previously. A right basal medial pulmonary nodule measures 11 mm compared to 12 mm previously. A superior middle lobe nodule measures 6 mm compared to 8mm prev iously. The remainder of the previously seen pulmonary nodules are more or less the same. Patent trac hea and main bronchi. No pleural effusion. MEDIASTINUM: Unchanged heart and arterial atherosclerotic calcifications. The pulmonary trunk measure s 3.3 cm. Slightly smaller prevascular lymph node measuring 12 mm compared to 13 mm previously. No pr ogressive lymphadenopathy in the chest. OTHER: Small bilateral gynecomastia changes. Stable tiny sclerotic foci in the visualized bones. Fozia pected subtle bone marrow infiltration of the sternum with minimal adjacent extraosseous soft tissue component, not well appreciated previously, suspicious for new bone metastasis. LIVER/GB: Redemonstration of the previously seen large hepatic masses, likely metastatic. There is ap parent progressive capsular retraction of the liver with slightly smaller few hepatic lesions. For ex ample, a segment 7 large lesion measures 14 cm compared to 14.5 cm previously. A segment 4/8 lesion m easures 10.6 cm compared to 11.6 cm previously. No definite new hepatic focal lesion identified yet d ifficult to confirm. Edematous gallbladder wall, possibly reactive to the liver disease. PANCREAS: No significant abnormality is seen. SPLEEN: No significant abnormality is seen. ADRENALS: No significant abnormality is seen. KIDNEYS: No significant abnormality is seen. BOWEL: Diffuse wall thickening and edema of the rectum with mesorectal fat stranding, fascial thicke rima and reactive fluid, likely related to post radiation treatment. Persistent mesorectal lymph node s/nodules measuring up to 2.1 cm, compared to 2.2 cm previously. Suspected lesion is seen at the post erior inferior aspect of the rectum inseparable from the adjacent peritoneal reflection and measuring 3 mm, grossly stable. No evidence of small or large bowel obstruction. Scattered uncomplicated colon ic diverticulosis. Mild wall thickening of the ascending colon. REPRODUCTIVE ORGANS: No gross abnormality seen. LYMPH NODES: Stable prominent subcentimeter aortocaval retroperitoneal lymph nodes. Grossly stable en larged villa hepatis and portacaval lymph nodes measuring up to 2.7 cm. No progressive lymphadenopath y in the abdomen or the pelvis. OSSEOUS STRUCTURES: Grossly stable scattered tiny scattered sclerotic foci in the visualized bones. N o bone destruction. OTHER: Minimal arterial atherosclerotic calcifications. Small amount of perisplenic and perihepatic f luid. IMPRESSION: 1. Slightly smaller few pulmonary metastatic lesions and a prevascular lymph node as described above, the remainder of the pulmonary arteries are grossly stable. 2. Suspected new sternal metastatic lesion, for further bone scan assessment. 3. Persistent large hepatic metastatic lesions with slightly smaller few hepatic lesions as described above. No definite new hepatic lesion. 4. Persistent malignant changes in the rectum and the adjacent mesorectal as well as superior abdomin al metastatic nodules/lymph nodes as described above, grossly stable. Other findings as described abo ve.
== END | disposition home or self-care (01) ==
LOC: RADPROMAIN 09:15
PROVIDERS: ATTEND Internal Medicine Hematology & Oncology
DX: C20 Malignant neoplasm of rectum (principal); C78.02 Secondary malignant neoplasm of left lung; C78.01 Secondary malignant neoplasm of right lung; C78.7 Secondary malignant neoplasm of liver and intrahepatic bile duct
CPT/HCPCS: 82565; 84520; 71260; 74177; 36415; Q9967

== ENCOUNTER → 2021-10-07 | Outpatient (CLI) | payer BC ==
--- NOTE | 2021-10-07 19:13 | CT ---
EXAMINATION TYPE: CT ChestAbdPelvis w con DATE OF EXAM: 10/07/2021 INDICATION: Rectal cancer with metastasis COMPARISON: 08/19/2021 CT DLP: 1400.8 mGycm CONTRAST: Performed with Oral Contrast and without and with IV Contrast, patient injected with 100 mL of Isovue 300. TECHNIQUE: Axial images at 5 mm thick sections. Reconstructed images in the coronal plane. Delayed images through the kidneys. FINDINGS: CT CHEST: Portion of the thyroid visualized is normal. Incidental note is made of thrombus within the secondary right lower lobe branches. Example image ser ies 3 image 34. This appears to be nonobstructing and may be chronic. Exam is not optimized for good evaluation of thrombus. Smaller obstructing pulmonary emboli may not be visualized. There are extensive subcentimeter nodules present throughout the bilateral lung marie. Larger nodule s are present. Example images include: 1. 0.9 cm peripheral nodule anterior left upper lobe, series 4 image 22. 2. 1.0 cm nodule right upper lung field. Series 4 image 26. 3. A 1.5 cm nodule anterior right midlung. Series 4 image 38. This has increased in size from 1.2 cm. At the same level there is a 1.2 cm nodule which is increased in size. 4. A 1.4 cm nodule right lung base. Series 4 image 49. This is increased from 1.1 cm. Small axillary lymph nodes are present bilaterally. No enlarged mediastinal or hilar lymph nodes are evident. The ascending aorta diameter at the level of the main pulmonary artery is 3.9 cm. The main pulmonary artery diameter at the bifurcation is 3.3 cm. Small pericardial effusion is present. CT ABDOMEN: Ascites is present. Liver: The extensive large metastasis through the liver are again evident. The comparison r lesion in the anterior right lobe liver appears stable in size and more lateral right lobe liver lesion appear s similar. Accurate measurement of these ill-defined lesions is difficult. Spleen: Normal Pancreas: Normal Adrenal glands: The adrenal glands are normal. Gallbladder: Normal Kidneys: No masses are evident. There appears to be mild left hydronephrosis and hydroureter. A punct ate calcification may be within the distal left ureter just above the left ureterovesical junction. E xcretion through the left kidney is delayed compared to the right. Aorta: No aneurysmal dilatation. Minimal calcification is present Inferior vena cava: Normal. CT PELVIS: Proximal small bowel loops are slightly prominent with contrast. Oral contrast extends to the ascendi ng colon. There are some prominent sigmoid loops of bowel with fluid. There may be a partial intussus ception of the proximal sigmoid colon. There are loops of bowel which are incompletely distended or l ack oral contrast limiting their evaluation. Perirectal fat stranding appears to be present. Small ly mph nodes may be present. Appendix: Not identified. No dilated tubular structure or inflammatory change is identified. Urinary bladder: Normal. Genitourinary structures: Prostate appears normal Osseous structures: No suspicious lytic or sclerotic lesions. Lymphadenopathy: There may be some enlarged lymphadenopathy in the periportal region. This was presen t previously and is stable. There is some periaortic adenopathy. This was present previously. Inguina l adenopathy is present greater on the right. IMPRESSIONS: 1. Note is made of a thrombus within the right secondary lower lobe pulmonary artery. This may be non obstructing. Smaller obstructing pulmonary emboli are not excluded. 2. Enlarging nodules within the chest. Multiple subcentimeter nodules remain present. 3. Extensive metastasis to the liver appears essentially stable. 4. Periportal adenopathy appears similar. 5. Ascites. 6. Possible partial intussusception of the proximal into the mid sigmoid colon. Sigmoid colon wall th ickening and edema appears to be present. 7. Delayed excretion from the left kidney with mild left hydronephrosis and hydroureter. A tiny parti ally obstructing stone may be in the distal left ureter above the ureterovesical junction. A [place] critical message alert has been initiated for Monika Severino MD via the [employer] Critical Results System on 10/07/2021 7:01 PM. This message alert has been sent to Monika Severino MD via the preferences provided by the clinician for the receipt of Radiology Critical Findings. Message ID [id number].
== END | disposition home or self-care (01) ==
LOC: RADPROMAIN 09:40
PROVIDERS: ATTEND Internal Medicine Hematology & Oncology
DX: C20 Malignant neoplasm of rectum (principal); C78.7 Secondary malignant neoplasm of liver and intrahepatic bile duct; R91.8 Other nonspecific abnormal finding of lung field; R59.0 Localized enlarged lymph nodes; R18.8 Other ascites; N13.30 Unspecified hydronephrosis; N13.4 Hydroureter
CPT/HCPCS: 82565; 84520; 71260; 74177; J1642; Q9967

== ENCOUNTER 2021-11-25 12:10 | Day surgery (SDC) | payer BC ==
[2021-11-25 12:52] VITALS: TEMP 97.9
[2021-11-25 12:55] LABS: Mean Platelet Volume 8.2; Platelet Count 267 k/uL (150-450)
[2021-11-25 13:11] LABS: INR 1.2 (<1.2); Prothrombin Time 12.4 sec (9.0-12.0)
--- NOTE | 2021-11-25 15:46 | US ---
EXAMINATION TYPE: US paracentesis abd w/image DATE OF EXAM: 11/25/2021 COMPARISON: NONE HISTORY: Ascites. PROCEDURE: Maximal barrier technique was utilized. The skin overlying a suitable pocket of fluid was localized with ultrasound and the overlying skin was prepped and draped. Ultrasound was utilized with sterile technique. Lidocaine was used for local anesthesia and a skin makayla made with a scalpel. Catheter was advanced under direct ultrasound guidance into a suitable pocket of fluid and approximately 12 liters of ascitic fluid were removed. Catheter was withdrawn and hemostasis achieved. There is no immedia te complication; the patient is discharged in stable condition. IMPRESSION: STATUS POST ULTRASOUND GUIDED PARACENTESIS FOR PALLIATION OF ASCITES. THIS PROCEDURE WA S PERFORMED BY THE UNDERSIGNED.
[2021-11-25 15:47] VITALS: BP 111/74; PULSE 83; RESP 16
== END 2021-11-25 15:40 | disposition home or self-care (01) ==
LOC: RADPROMAIN 12:10
PROVIDERS: ATTEND Internal Medicine Hematology & Oncology
DX: R18.8 Other ascites (principal); Z79.01 Long term (current) use of anticoagulants
CPT/HCPCS: 36415; 49083; 85049; 85610; 88108; 88305; 88341; 88342

== ENCOUNTER 2021-12-09 08:05 | Day surgery (SDC) | payer BC ==
[2021-12-09] MEDS ORDERED: ALBUMIN HUMAN 25% 50 ML in EMPTY BAG 1 BAG IVPB ONE (08:56)
[2021-12-09 09:07] LABS: Mean Platelet Volume 7.8; Platelet Count 270 k/uL (150-450)
[2021-12-09 09:17] VITALS: TEMP 97.7
[2021-12-09 09:35] LABS: INR 1.2 (<1.2); Prothrombin Time 12.3 sec (9.0-12.0)
[2021-12-09 11:43] VITALS: BP 104/64; PULSE 74; RESP 18
--- NOTE | 2021-12-09 13:42 | US ---
EXAMINATION TYPE: US paracentesis abd w/image DATE OF EXAM: 12/09/2021 COMPARISON: NONE HISTORY: Ascites. PROCEDURE: Maximal barrier technique was utilized. The skin overlying a suitable pocket of fluid was localized with ultrasound and the overlying skin was prepped and draped. Ultrasound was utilized with sterile technique. Lidocaine was used for local anesthesia and a skin makayla made with a scalpel. Catheter was advanced under direct ultrasound guidance into a suitable pocket of fluid and approximately 12 liters of ascitic fluid were removed. Catheter was withdrawn and hemostasis achieved. There is no immedia te complication; the patient is discharged in stable condition. IMPRESSION: STATUS POST ULTRASOUND GUIDED PARACENTESIS FOR PALLIATION OF ASCITES. THIS PROCEDURE WA S PERFORMED BY THE UNDERSIGNED.
== END 2021-12-09 12:00 | disposition home or self-care (01) ==
LOC: RADPROMAIN 08:05
PROVIDERS: ATTEND Internal Medicine Hematology & Oncology
DX: R18.8 Other ascites (principal)
CPT/HCPCS: 85049; 85610; 36415; 49083; P9047

== ENCOUNTER 2021-12-16 08:57 | Day surgery (SDC) | payer BC ==
[~2021-12-16 08:57] MED LIST changes: +ALBUMIN HUMAN 25% 50 ML in EMPTY BAG 1 BAG IVPB ONE; -SODIUM CHLORIDE 0.9% 1,000 ML IV SCH
[2021-12-16 09:36] VITALS: TEMP 97.5
[2021-12-16 09:36] LABS: INR 1.1 (<1.2); Prothrombin Time 12.1 sec (9.0-12.0)
[2021-12-16 09:41] LABS: Mean Platelet Volume 8.6; Platelet Count 220 k/uL (150-450)
[2021-12-16] MEDS ORDERED: LIDOCAINE 1% PF 10 MG/ML (5 ML AMP) SQ ONE (10:12)
[2021-12-16 12:17] VITALS: BP 100/62; PULSE 76; RESP 14
--- NOTE | 2021-12-16 12:44 | US ---
EXAMINATION TYPE: US paracentesis abd w/image DATE OF EXAM: 12/16/2021 COMPARISON: NONE HISTORY: Ascites. PROCEDURE: Maximal barrier technique was utilized. The skin overlying a suitable pocket of fluid was localized with ultrasound and the overlying skin was prepped and draped. Ultrasound was utilized with sterile technique. Lidocaine was used for local anesthesia and a skin makayla made with a scalpel. Catheter was advanced under direct ultrasound guidance into a suitable pocket of fluid and approximately 13 liters of ascites fluid were removed. Catheter was withdrawn and hemostasis achieved. There is no immedia te complication; the patient is discharged in stable condition. IMPRESSION: STATUS POST ULTRASOUND GUIDED PARACENTESIS FOR PALLIATION OF ASCITES. THIS PROCEDURE WA S PERFORMED BY THE UNDERSIGNED.
== END 2021-12-16 12:05 | disposition home or self-care (01) ==
LOC: RADPROMAIN 08:57
PROVIDERS: ATTEND Internal Medicine Hematology & Oncology
DX: R18.8 Other ascites (principal); Z79.899 Other long term (current) drug therapy; Z87.891 Personal history of nicotine dependence; Z82.49 Family history of ischemic heart disease and other diseases of the circulatory system; Z81.8 Family history of other mental and behavioral disorders
CPT/HCPCS: 85049; 85610; 36415; 49083; J2001; P9047

== ENCOUNTER 2021-12-22 12:15 | Day surgery (SDC) | payer BC ==
[2021-12-22 13:10] LABS: Platelet Count 154 k/uL (150-450)
[2021-12-22] MEDS ORDERED: ALBUMIN HUMAN 25% 50 ML in EMPTY BAG 1 BAG IVPB ONE (13:11)
[2021-12-22] MEDS ORDERED: ALTEPLASE 2 MG VIAL (CATHFLO) IV STA (13:30)
[2021-12-22 13:32] LABS: INR 1.3 (<1.2); Prothrombin Time 13.6 sec (9.0-12.0)
[2021-12-22] MEDS ORDERED: LIDOCAINE 1% PF 10 MG/ML (5 ML AMP) SQ ONE (14:30)
[2021-12-22 16:09] VITALS: BP 101/63; PULSE 75; RESP 16
--- NOTE | 2021-12-22 16:16 | US ---
EXAMINATION TYPE: US paracentesis abd w/image DATE OF EXAM: 12/22/2021 COMPARISON: NONE HISTORY: Ascites. PROCEDURE: Maximal barrier technique was utilized. The skin overlying a suitable pocket of fluid was localized with ultrasound and the overlying skin was prepped and draped. Ultrasound was utilized with sterile technique. Lidocaine was used for local anesthesia and a skin makayla made with a scalpel. Catheter was advanced under direct ultrasound guidance into a suitable pocket of fluid and approximately 12.6 lite rs of ascites fluid were removed. Catheter was withdrawn and hemostasis achieved. There is no immed iate complication; the patient is discharged in stable condition. IMPRESSION: STATUS POST ULTRASOUND GUIDED PARACENTESIS FOR PALLIATION OF ASCITES. THIS PROCEDURE WA S PERFORMED BY THE UNDERSIGNED.
== END 2021-12-22 16:10 | disposition home or self-care (01) ==
LOC: RADPROMAIN 12:15
PROVIDERS: ATTEND Internal Medicine Hematology & Oncology
DX: R18.8 Other ascites (principal); C20 Malignant neoplasm of rectum
CPT/HCPCS: 85049; 85610; 36415; 49083; J2001; P9047; J1642; J2997

== ENCOUNTER 2021-12-29 12:24 | Day surgery (SDC) | payer BC ==
[2021-12-29] MEDS ORDERED: ALBUMIN HUMAN 25% 50 ML in EMPTY BAG 1 BAG IVPB ONE (13:00)
[2021-12-29 13:20] VITALS: RESP 16; TEMP 97.5
[2021-12-29 13:31] LABS: Mean Platelet Volume 8.4; Platelet Count 190 k/uL (150-450)
[2021-12-29 13:36] LABS: INR 1.2 (<1.2); Prothrombin Time 12.4 sec (9.0-12.0)
[2021-12-29 15:35] VITALS: BP 95/62; PULSE 67
--- NOTE | 2021-12-30 08:31 | US ---
Ultrasound-guided paracentesis. DATE OF EXAM: 12/29/2021 CLINICAL HISTORY: Ascites The procedure was discussed with the patient. The risks, complications, benefits, and alternatives we re discussed and any questions were answered. Informed consent was obtained. The patient was placed s upine on the ultrasound table and prepped and draped in the usual sterile fashion. All elements of maximal barrier technique were utilized. Under ultrasound guidance, access into the right lower quadrant was obtained, via the paracentesis catheter system and direct ultrasound guidanc e. Approximately 10.8 liters of straw-colored fluid was removed. The patient was stable throughout the p rocedure and remained stable upon discharge from Department of Radiology. IMPRESSION: Successful paracentesis under ultrasound guidance.
== END 2021-12-29 15:45 | disposition home or self-care (01) ==
LOC: RADPROMAIN 12:24
PROVIDERS: ATTEND Internal Medicine Hematology & Oncology
DX: R18.8 Other ascites (principal); Z79.899 Other long term (current) drug therapy; Z87.891 Personal history of nicotine dependence; Z81.8 Family history of other mental and behavioral disorders; Z82.49 Family history of ischemic heart disease and other diseases of the circulatory system
CPT/HCPCS: 85049; 85610; 36415; 49083; P9047

== ENCOUNTER 2022-01-05 12:25 | Day surgery (SDC) | payer BC ==
[2022-01-05 13:51] LABS: Mean Platelet Volume 8.7; Platelet Count 200 k/uL (150-450)
[2022-01-05 14:10] LABS: INR 1.1 (<1.2); Prothrombin Time 11.3 sec (9.0-12.0)
[2022-01-05 15:03] VITALS: TEMP 97.5
[2022-01-05 16:27] VITALS: RESP 16
[2022-01-05 17:07] VITALS: BP 94/58; PULSE 68
--- NOTE | 2022-01-05 21:03 | CT ---
EXAMINATION TYPE: CT ChestAbdPelvis wo con CT DLP: 531.6 mGycm, Automated exposure control for dose reduction was used. DATE OF EXAM: 01/05/2022 5:01 PM COMPARISON: Most recent CT chest abdomen pelvis. 10/07/2021. CLINICAL INDICATION:Male, 56 years old with history of Rectal CA; Technique: Multiple axial images of the chest, abdomen, and pelvis were obtained. Two-dimensional cor onal and sagittal reconstructions were obtained. Contrast used: None Oral contrast used: with Oral Contrast Findings: Evaluation is limited without IV contrast. CHEST: LUNGS/ PLEURA: Scattered innumerable metastatic nodules seen throughout the lungs which appear larger in size and increased in number compared to immediate prior. Example includes right upper lobe pulmo nary nodule measuring 13 mm, previously 10 mm, series 3 image 24 in the right upper lobe, left lower lobe pulmonary nodule measuring 14 mm, previously 11 mm on series 3 image 39. Other nodules are incre ased in size. AIRWAY: Patent and unremarkable. HEART: Size within normal limits. There is moderate atherosclerosis of the coronary arteries. MEDIASTINUM: Scattered calcified lymph nodes are seen throughout the mediastinum including a prevascu lar space 12 mm, subcarinal 12 mm, and paraesophageal 8 mm lymph nodes. VASCULATURE: No aortic aneurysm. Chest wall [id number] with distal tip terminating in the superio r vena cava. Mild dilation of the pulmonary trunk suggestive of pulmonary hypertension. MUSCULOSKELETAL: No acute osseous abnormalities. , Multilevel disc degeneration changes are seen thro ughout the osseous structures appear normal definitive suspicious osteolytic lesion identified. SOFT TISSUES/LYMPH NODES: Unremarkable. LOWER NECK: No significant findings. ABDOMEN: ABDOMEN LIVER: Heterogenous appearance with calcified metastatic disease which is suboptimally evaluated for comparison given lack of IV contrast. GALLBLADDER AND BILE DUCTS: The gallbladder is contracted. PANCREAS: Unremarkable. SPLEEN: Unremarkable. ADRENAL GLANDS: Unremarkable. KIDNEYS AND URETERS: No evidence of hydronephrosisr PELVIS BLADDER: Unremarkable REPRODUCTIVE: Unremarkable. ABDOMEN & PELVIS STOMACH AND BOWEL: No evidence of bowel obstruction. Scattered colonic diverticula. Asymmetric rectal wall thickening most pronounced on series 3 image 115 measuring up to 10 mm. Note is made that the r ectal wall is somewhat collapsed. There is more focal outpouching suggested best appreciated on serie s 3 image 120. Findings not significantly changed from prior 10/07/2021. PERITONEUM: No evidence of pneumoperitoneum. Trace free fluid in the abdomen. VASCULATURE: No evidence of aortic aneurysm. MUSCULOSKELETAL: No acute osseous abnormalities LYMPH NODES: Scattered lymphadenopathy throughout the abdomen demonstrating calcification. Example in cludes villa hepatis lymph node measuring 4.4 x 2.7, previously 4.1 x 2.7 centimeters. Additional par tially calcified enlarged lymph nodes are seen within the retroperitoneum, perirectal region and cassi rohepatic ligament. Anasarca of the soft tissues. SOFT TISSUE/ABDOMINAL WALL: Suspected trace fluid in the inguinal canals bilaterally. IMPRESSION: 1. Progression of metastatic disease with innumerable pulmonary nodules of which some have increased in size and number. Additional metastatic lymphadenopathy seen throughout the abdomen, mediastinum w hich have calcifications on today's exam which may be more dense than prior and could be related to p osttreatment changes. Underlying persistent disease within these lymph nodes is indeterminate. Lastly the liver metastatic disease is suboptimally evaluated due to compare to prior given lack of IV cont rast on this examination. 2. Slightly asymmetric rectal wall thickening not significantly changed from 10/07/2021.
--- NOTE | 2022-01-07 07:38 | US ---
EXAMINATION TYPE: US paracentesis abd w/image DATE OF EXAM: 01/05/2022 CLINICAL HISTORY: 56-year-old male R18.8, recurrent ascites, weekly drainage. The procedure was discussed with the patient. The risks, complications, benefits, and alternatives we re discussed and any questions were answered. Informed consent was obtained. The patient was placed s upine on the ultrasound table and prepped and draped in the usual sterile fashion. All elements of maximal barrier technique were utilized. Ultrasound was utilized to dilma the precise skin entry point along the right lower quadrant. Utilizing trocar technique, a 16 [place] safety centesis catheter was advanced into the ascites collec tion. Approximately 11.7 liters of cloudy yellow fluid (typical for the patient) was removed. The patient w as stable throughout the procedure and remained stable upon discharge from Department of Radiology. IMPRESSION: Successful therapeutic paracentesis under ultrasound guidance with 11.7 L of typical appearing fluid removed.
== END 2022-01-05 16:45 | disposition home or self-care (01) ==
LOC: RADPROMAIN 12:25
PROVIDERS: ATTEND Internal Medicine Hematology & Oncology
DX: R18.8 Other ascites (principal)
CPT/HCPCS: 82565; 84520; 85049; 85610; 36415; 49083; 71250; 74176; P9047; J1642

== ENCOUNTER 2022-01-19 12:11 | Day surgery (SDC) | payer BC ==
[2022-01-19] MEDS ORDERED: ALBUMIN HUMAN 25% 50 ML in EMPTY BAG 1 BAG IVPB ONE (12:18)
[2022-01-19] MEDS ORDERED: ALTEPLASE 2 MG VIAL (CATHFLO) IV STA (12:50)
[2022-01-19 12:56] VITALS: RESP 16; TEMP 94.4
[2022-01-19 12:58] LABS: Mean Platelet Volume 9.2; Platelet Count 132 k/uL (150-450)
[2022-01-19 13:08] LABS: INR 1.1 (<1.2); Prothrombin Time 11.5 sec (9.0-12.0)
[2022-01-19 14:58] VITALS: BP 85/56; PULSE 74
--- NOTE | 2022-01-19 15:50 | US ---
Ultrasound-guided paracentesis. DATE OF EXAM: 01/19/2022 CLINICAL HISTORY: Ascites The procedure was discussed with the patient. The risks, complications, benefits, and alternatives we re discussed and any questions were answered. Informed consent was obtained. The patient was placed s upine on the ultrasound table and prepped and draped in the usual sterile fashion. All elements of maximal barrier technique were utilized. Under ultrasound guidance, access into the right lower quadrant was obtained, via the paracentesis catheter system and direct ultrasound guidanc e. Approximately 7.7 liters of straw-colored fluid was removed. The patient was stable throughout the pr ocedure and remained stable upon discharge from Department of Radiology. IMPRESSION: Successful paracentesis under ultrasound guidance.
== END 2022-01-19 15:05 | disposition home or self-care (01) ==
LOC: RADPROMAIN 12:11
PROVIDERS: ATTEND Internal Medicine Hematology & Oncology
DX: R18.8 Other ascites (principal); Z79.899 Other long term (current) drug therapy; Z87.891 Personal history of nicotine dependence; Z81.8 Family history of other mental and behavioral disorders; Z82.49 Family history of ischemic heart disease and other diseases of the circulatory system
CPT/HCPCS: 85049; 85610; 96374; 49083; P9047; J2997

== ENCOUNTER 2022-01-27 07:59 | Day surgery (SDC) | payer BC ==
[2022-01-27] MEDS ORDERED: ALBUMIN HUMAN 25% 50 ML in EMPTY BAG 1 BAG IVPB ONE (08:30)
[2022-01-27 08:48] LABS: Mean Platelet Volume 8.4; Platelet Count 169 k/uL (150-450)
[2022-01-27 09:20] LABS: INR 1.2 (<1.2); Prothrombin Time 12.6 sec (9.0-12.0)
[2022-01-27 09:26] VITALS: TEMP 97.2
[2022-01-27 10:44] VITALS: BP 93/58; PULSE 74; RESP 17
--- NOTE | 2022-01-29 14:22 | US ---
EXAMINATION TYPE: US paracentesis abd w/image DATE OF EXAM: 01/29/2022 COMPARISON: NONE HISTORY: Ascites. PROCEDURE: Maximal barrier technique was utilized. The skin overlying a suitable pocket of fluid was localized with ultrasound and the overlying skin was prepped and draped. Ultrasound was utilized with sterile technique. Lidocaine was used for local anesthesia and a skin makayla made with a scalpel. Catheter was advanced under direct ultrasound guidance into a suitable pocket of fluid and approximately 5.1 liter s of ascites fluid were removed. Catheter was withdrawn and hemostasis achieved. There is no immedi ate complication; the patient is discharged in stable condition. IMPRESSION: STATUS POST ULTRASOUND GUIDED PARACENTESIS FOR PALLIATION OF ASCITES. THIS PROCEDURE WA S PERFORMED BY THE UNDERSIGNED.
== END 2022-01-27 10:54 | disposition home or self-care (01) ==
LOC: RADPROMAIN 07:59
PROVIDERS: ATTEND Internal Medicine Hematology & Oncology
DX: R18.8 Other ascites (principal); C20 Malignant neoplasm of rectum; Z79.899 Other long term (current) drug therapy; Z87.891 Personal history of nicotine dependence; Z82.49 Family history of ischemic heart disease and other diseases of the circulatory system; Z81.8 Family history of other mental and behavioral disorders
CPT/HCPCS: 85049; 85610; 49083; P9047; J1642

== ENCOUNTER 2022-02-02 10:41 | Day surgery (SDC) | payer BC ==
[2022-02-02] MEDS ORDERED: ALBUMIN HUMAN 25% 50 ML in EMPTY BAG 1 BAG IVPB ONE (10:43)
[2022-02-02 11:16] LABS: Mean Platelet Volume 8.9; Platelet Count 154 k/uL (150-450)
[2022-02-02 11:25] LABS: INR 1.1 (<1.2); Prothrombin Time 11.4 sec (9.0-12.0)
[2022-02-02 12:21] VITALS: TEMP 95.3
[2022-02-02 12:41] VITALS: RESP 18
[2022-02-02 13:22] VITALS: BP 89/54; PULSE 75
--- NOTE | 2022-02-02 15:32 | US ---
Ultrasound-guided paracentesis. DATE OF EXAM: 02/02/2022 CLINICAL HISTORY: ascites The procedure was discussed with the patient. The risks, complications, benefits, and alternatives we re discussed and any questions were answered. Informed consent was obtained. The patient was placed s upine on the ultrasound table and prepped and draped in the usual sterile fashion. All elements of maximal barrier technique were utilized. Under ultrasound guidance, access into the right lower quadrant was obtained, via the paracentesis catheter system and direct ultrasound guidanc e. Approximately 5.8 liters of straw-colored fluid was removed. The patient was stable throughout the pr ocedure and remained stable upon discharge from Department of Radiology. IMPRESSION: Successful paracentesis under ultrasound guidance.
== END 2022-02-02 13:23 | disposition home or self-care (01) ==
LOC: RADPROMAIN 10:41
PROVIDERS: ATTEND Internal Medicine Hematology & Oncology
DX: R18.8 Other ascites (principal); Z79.899 Other long term (current) drug therapy; Z87.891 Personal history of nicotine dependence; Z82.49 Family history of ischemic heart disease and other diseases of the circulatory system; Z81.8 Family history of other mental and behavioral disorders
CPT/HCPCS: 85049; 85610; 49083; P9047; J1642

== ENCOUNTER 2022-02-09 12:34 | Day surgery (SDC) | payer BC ==
[2022-02-09 12:58] VITALS: BP 88/52; PULSE 68; RESP 16; TEMP 97.6
[2022-02-09] MEDS ORDERED: ALBUMIN HUMAN 25% 50 ML in EMPTY BAG 1 BAG IVPB ONE (13:15)
--- NOTE | 2022-02-09 14:31 | US ---
Discontinued paracentesis HISTORY: Ascites Exam was aborted due to lack of sufficient fluid. IMPRESSION: Aborted paracentesis
== END 2022-02-09 13:35 | disposition home or self-care (01) ==
LOC: RADPROMAIN 12:34
PROVIDERS: ATTEND Internal Medicine Hematology & Oncology
DX: R18.8 Other ascites (principal)
CPT/HCPCS: 76705

== ENCOUNTER 2022-02-16 12:27 | Day surgery (SDC) | payer BC ==
[2022-02-16] MEDS ORDERED: ALBUMIN HUMAN 25% 50 ML in EMPTY BAG 1 BAG IVPB ONE (12:30)
[2022-02-16 12:42] VITALS: TEMP 93.1
[2022-02-16 13:10] LABS: Mean Platelet Volume 9.3; Platelet Count 123 k/uL (150-450)
[2022-02-16 13:33] LABS: INR 1.1 (<1.2); Prothrombin Time 12.2 sec (9.0-12.0)
[2022-02-16 15:11] VITALS: BP 90/58; PULSE 83; RESP 15
--- NOTE | 2022-02-16 16:12 | US ---
Ultrasound-guided paracentesis. DATE OF EXAM: 02/16/2022 CLINICAL HISTORY: Ascites The procedure was discussed with the patient. The risks, complications, benefits, and alternatives we re discussed and any questions were answered. Informed consent was obtained. The patient was placed s upine on the ultrasound table and prepped and draped in the usual sterile fashion. All elements of maximal barrier technique were utilized. Under ultrasound guidance, access into the right lower quadrant was obtained, via the paracentesis catheter system and direct ultrasound guidanc e. Approximately 5.8 liters of straw-colored fluid was removed. The patient was stable throughout the pr ocedure and remained stable upon discharge from Department of Radiology. IMPRESSION: Successful paracentesis under ultrasound guidance.
== END 2022-02-16 15:25 | disposition home or self-care (01) ==
LOC: RADPROMAIN 12:27
PROVIDERS: ATTEND Internal Medicine Hematology & Oncology
DX: R18.8 Other ascites (principal)
CPT/HCPCS: 85049; 85610; 49083; P9047; J1642